=== PATIENT | female | born 1970 ===

== ENCOUNTER 2020-05-05 09:52 | Outpatient (REF) | payer MEDICARE, MEDICAID, SELFPAY ==
[2020-05-05 13:34] LABS: Alanine Aminotransferase 11 U/L (0-31); Albumin Level 4.4 g/dL (3.5-5.0); Alkaline Phosphatase 110 U/L (39-117); Anion Gap 15 (12-20); Aspartate Amino Transferase 18 U/L (5-31); Bilirubin Total 0.5 mg/dL (0.0-1.0); Blood Urea Nitrogen 16 mg/dL (9-16); Carbon Dioxide 26 mmol/L (22-29); Chloride 105 mmol/L (96-108); Estimated Glomerular Filt Rate > 60; Glucose Fasting 75 mg/dL (60-99); Potassium 4.8 mmol/l (3.3-5.1); Sodium 141 mmol/L (135-145); Total Protein 7.3 g/dL (6.5-8.0); Uric Acid 3.8 mg/dL (2.4-5.7)
== END 2020-05-05 09:53 | disposition home or self-care (01) ==
LOC: HO.LAB 09:52
PROVIDERS: Visit Provider Internal Medicine
DX: M10.9 Gout, unspecified (principal); M79.672 Pain in left foot
CPT/HCPCS: 80053; 84550

== ENCOUNTER 2020-05-11 12:58 | Outpatient (REF) | payer MEDICARE, MEDICAID, SELFPAY | END 2020-05-11 12:59 | disposition home or self-care (01) | LOC: HO.LAB 12:58 | PROVIDERS: Visit Provider Internal Medicine | DX: Z20.828 Contact with and (suspected) exposure to other viral communicable diseases (principal) | CPT/HCPCS: C9803; U0003 ==

== ENCOUNTER 2020-05-25 13:44 | Outpatient (REF) | payer MEDICARE, MEDICAID, SELFPAY ==
[2020-05-25 14:13] LABS: MANUAL DIFF FLAG NO
[2020-05-25 14:16] LABS: Basophils Absolute Auto 0.1 X10*3/uL (0.0-0.2); Basophils Percent Auto 0.7 % (0-2); Eosinophils Absolute Auto 0.2 X10*3/uL (0.0-0.4); Eosinophils Percent Auto 2.4 % (0-4); Hematocrit 40.2 % (37-47); Hemoglobin 12.8 g/dl (12.0-16.0); Imm Gran Abs Auto 0.02 X10*3/uL (0.00-0.03); Imm Gran Pct Auto 0.2 % (0.0-0.4); Lymphocytes Absolute Auto 1.7 X10*3/uL (1.2-4.9); Lymphocytes Percent Auto 19.7 % (20-40); Mean Corpuscular HGB Conc 31.8 g/dl (31.0-35.0); Mean Corpuscular Hemoglobin 29.6 pg (27.0-33.0); Mean Corpuscular Volume 93.1 fL (80-98); Mean Platelet Volume 9.5 fL (9.4-12.3); Monocytes Absolute Auto 0.6 X10*3/uL (0.1-1.2); Neutrophils Absolute Auto 6.1 X10*3/uL (2.0-8.3); Platelet Count 354 X10*3/uL (160-400); Red Blood Count 4.32 X10*6/uL (4.20-5.50); Red Cell Distribution Width 12.7 % (11.0-16.0); White Blood Count 8.7 X10*3/uL (4.8-10.8)
[2020-05-25 15:02] LABS: Thyroid Stimulating Hormone 0.61 uIU/mL (0.32-4.0)
[2020-05-25 15:15] LABS: Folate 10.6 ng/mL (> or = 4.0); Vitamin B12 284 pg/mL (200-900)
== END 2020-05-25 13:45 | disposition home or self-care (01) ==
LOC: HO.LAB 13:44
PROVIDERS: PCP Internal Medicine; Visit Provider Internal Medicine
DX: G60.9 Hereditary and idiopathic neuropathy, unspecified (principal); Z68.23 Body mass index [BMI] 23.0-23.9, adult
CPT/HCPCS: 36415; 82607; 82746; 84443; 85025

== ENCOUNTER 2020-06-01 09:42 | Outpatient (REF) | payer MEDICARE, MEDICAID, SELFPAY ==
[2020-06-01 11:46] LABS: Free T4 (Free Thyroxine) 0.79 ng/dL (0.71-1.85); Thyroid Stimulating Hormone 1.34 uIU/mL (0.32-4.0)
== END 2020-06-01 09:43 | disposition home or self-care (01) ==
LOC: HO.LAB 09:42
PROVIDERS: PCP Internal Medicine; Visit Provider Internal Medicine
DX: E06.3 Autoimmune thyroiditis (principal)
CPT/HCPCS: 84439; 84443

== ENCOUNTER 2020-06-06 09:26 | Outpatient (REF) | payer MEDICARE, MEDICAID, SELFPAY ==
--- NOTE | 2020-06-06 | US_ITS ---
EXAMINATION: US THYROID CLINICAL INFORMATION: Multinodular goiter. COMPARISON: Ultrasound thyroid soft tissue dated 12/03/2018 TECHNIQUE: Linear transducer vincent-scale and color Doppler examination with attention to the region of the thyroid. FINDINGS: SIZE: Measurements of the thyroid lobes and nodules are given in sagittal, anteroposterior and transverse dimensions respectively. Right Thyroid Lobe: 5.4 x 2.0 x 1.6 cm, volume 9.5 mL. Previously 5.0 x 1.9 x 1.7 cm, volume 8.5 mL. Parenchyma: The gland echotexture is heterogeneous. Thyroid vascularity is slightly increased. Left Thyroid Lobe: 5.4 x 1.9 x 1.9 cm, volume 10.2 mL. Previously 5.3 x 2.2 x 1.8 cm, volume 11.0 mL. Parenchyma: The gland echotexture is heterogeneous. Thyroid vascularity is slightly increased.. Isthmus: 0.7 cm in maximum AP dimension. Previously 0.7 cm. RIGHT THYROID LOBE: There are 4 nodules seen. 1. Location: Upper. Size: 0.6 x 0.4 x 0.4 cm. Previous: Not seen Nodule characteristics: Hypoechoic and heterogeneous, smooth margin, no calcification and positive intranodular flow. 2. Location: Mid. Size: 0.7 x 0.4 x 0.5 cm. Previous: 0.4 x 0.3 x 0.4 cm. Nodule characteristics: Hypoechoic and complex cystic, smooth margin, no calcification and no intranodular flow. 3. Location: Mid. Size: 0.4 x 0.2 x 0.3 cm. Previous: 0.3 x 0.2 x 0.3 cm. Nodule characteristics: Hypoechoic and cystic, smooth margin, no calcification and no intranodular flow. 4. Location: Lower. Size: 0.2 x 0.1 x 0.3 cm. Previous: 0.3 x 0.5 x 0.3 cm. Nodule characteristics: Calcification . The previously identified 1.2 x 1.1 x 1.1 cm isoechoic nodule inferior lobe is not appreciated. ISTHMUS: No nodules. LEFT THYROID LOBE: There is 1 nodule seen. 1. Location: Mid to lower. Size: 2.2 x 1.2 x 1.3 cm. Previous: 1.6 x 1.2 x 1.0 cm. Nodule characteristics: Heterogeneous and complex cystic, smooth margin, no calcification and positive intranodular flow. This appears to represent 1 nodule at this time. The 2 smaller adjacent cystic nodules are not appreciated. NODES: No lymphadenopathy is seen in the tissue surrounding the thyroid gland. US/US thyroid IMPRESSION: Enlarged heterogeneous slightly hypervascular thyroid gland. Comparison with previous exam is difficult. The previously identified approximately 1 cm solid isoechoic nodule in the superior right lobe is is not appreciated. There is a newly appreciated small nodule in the superior right lobe. Complex cystic nodule in the mid to lower left lobe appears increased in size from previous exam. The separate adjacent smaller nodules are not appreciated.
== END 2020-06-06 09:27 | disposition home or self-care (01) ==
LOC: HO.US 09:26
PROVIDERS: PCP Internal Medicine; Visit Provider Internal Medicine
DX: E04.2 Nontoxic multinodular goiter (principal)
CPT/HCPCS: 76536

== ENCOUNTER 2020-08-04 09:15 | Outpatient (REF) | payer MEDICARE, MEDICAID, SELFPAY ==
--- NOTE | 2020-08-04 10:02 | PM.OP ---
Brief Operative Note Date of Service: 08/04/20 Surgeon: Nidhi Gibson DO EXAMINATION: US THYROID CLINICAL INFORMATION: Multinodular Thyroid COMPARISON: Prior TECHNIQUE: Linear transducer vinecnt-scale and color Doppler examination with attention to the region of the thyroid. FINDINGS: SIZE: Measurements of the thyroid lobes and nodules are given in sagittal, anteroposterior and transverse dimensions respectively. Right Thyroid Lobe: 5.7 x 1.8 x 2.0 cm, volume 10.5 mL. Parenchyma: The gland echotexture is diffusely heterogenous. Thyroid vascularity is moderately increased. Left Thyroid Lobe: 6 x 2.1 x 2.0 cm, volume 12.8 mL. Parenchyma: The gland echotexture is diffusely heterogenous. Thyroid vascularity is moderately increased. Isthmus: 0.8 cm in maximum AP dimension. RIGHT THYROID LOBE: There are scattered small cystic areas, but no obvious nodules. LEFT THYROID LOBE: There are 3 nodules. 1. LMP: There is a 0.85 x 1.0 x 0.8 cm mixed cystic nodule. This has regular margins, no calcification and normal intranodular flow. 2. LMP: There is a 0.8 x 1.0 x 0.7 cm mixed cystic nodule. This has regular margins, no calcification and normal intranodular flow. 2. LMP: There is a 01.3 x 1.3 x 1.2 cm mixed cystic nodule. This has regular margins, no calcification and normal intranodular flow. NODES: Lymph nodes were not assessed. 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 There are 3 nodules measured in the L mid pole, all mixed cystic. These have not significantly changed from her prior US. On the prior US these nodules were measured together as 1 nodule measuring 2.2 cm in largest dimension, but this was in error. These are in fact 3 separate nodules. Estimated blood loss (mL): 0
== END 2020-08-04 09:16 | disposition home or self-care (01) ==
LOC: HO.US 09:15
PROVIDERS: Visit Provider Internal Medicine
DX: E04.2 Nontoxic multinodular goiter (principal)
CPT/HCPCS: 76536

== ENCOUNTER → 2020-08-18 11:25 | Outpatient (BNVA) | payer MEDICARE, MEDICAID, SELFPAY | PROVIDERS: PCP Internal Medicine; Visit Provider Internal Medicine | DX: Z76.89 Persons encountering health services in other specified circumstances (principal) | CPT/HCPCS: Q3014 ==

== ENCOUNTER → 2020-09-23 11:44 | Outpatient (BNVA) | payer MEDICARE, MEDICAID, SELFPAY | PROVIDERS: PCP Internal Medicine; Visit Provider Dietitian, Registered ==

== ENCOUNTER 2020-10-04 08:52 | Outpatient (REF) | payer MEDICARE, MEDICAID, SELFPAY ==
[2020-10-04 14:37] LABS: SARS COV2 PCR INHOUSE NEGATIVE (Negative)
== END 2020-10-04 08:53 | disposition home or self-care (01) ==
LOC: HO.LAB 08:52
PROVIDERS: Visit Provider Internal Medicine
DX: Z20.822 Contact with and (suspected) exposure to COVID-19 (principal)
CPT/HCPCS: C9803; U0003

== ENCOUNTER → 2020-12-23 11:45 | Outpatient (BNVA) | payer MEDICARE, MEDICAID, SELFPAY | PROVIDERS: PCP Internal Medicine; Visit Provider Dietitian, Registered | DX: R63.4 Abnormal weight loss (principal) | CPT/HCPCS: 97803 ==

== ENCOUNTER 2021-02-06 09:06 | Outpatient (REF) | payer MEDICARE, MEDICAID, SELFPAY ==
--- NOTE | ~2021-02-06 | XR_ITS ---
EXAMINATION: XR FOOT, RIGHT XR, FOOT LEFT CLINICAL INFORMATION: Bilateral foot pain COMPARISON: Radiographs bilateral feet 03/10/2020. TECHNIQUE: Each foot is imaged in 3 views. There are a total of 6 views. FINDINGS: Right: Normal bony mineralization. No periarticular demineralization. No fracture or destructive process. The subtalar joint is unremarkable. There are small posterior and plantar calcaneal spurs again noted. The retrocalcaneal recess is preserved. The midfoot is unremarkable. No joint narrowing or erosive change. The hallux again shows a borderline healed erosion medial base without adjacent soft tissue swelling or mineralized tophi. There is a stable cyst in the first proximal phalanx. Probable healed erosion present lateral base first distal phalanx, new from prior study. No joint narrowing. The remainder of the digits show no interval joint narrowing or erosive change. Left: Normal bony mineralization. No periarticular demineralization. No fracture or dislocation. There are borderline posterior and plantar calcaneal spurs. The retrocalcaneal recess is preserved. The subtalar joint and midfoot are unremarkable. MTP joints show no focal narrowing or erosive change. There is a borderline left lateral base first distal phalanx, stable from prior study. No interval erosive changes. The remainder of the digits are unremarkable. XR/XR foot RT min 3V IMPRESSION: Right: -Probable healed erosion lateral base first distal phalanx, new from 03/10/2020. -Question punctate healed erosion medial base first proximal phalanx. -No soft tissue swelling or mineralized tophus. -No interval joint narrowing. -Small posterior and plantar calcaneal spurs. Left: -Small posterior and plantar calcaneal spurs. -No interval joint narrowing or erosive changes.
--- NOTE | ~2021-02-06 | XR_ITS ---
EXAMINATION: XR FOOT, RIGHT XR, FOOT LEFT CLINICAL INFORMATION: Bilateral foot pain COMPARISON: Radiographs bilateral feet 03/10/2020. TECHNIQUE: Each foot is imaged in 3 views. There are a total of 6 views. FINDINGS: Right: Normal bony mineralization. No periarticular demineralization. No fracture or destructive process. The subtalar joint is unremarkable. There are small posterior and plantar calcaneal spurs again noted. The retrocalcaneal recess is preserved. The midfoot is unremarkable. No joint narrowing or erosive change. The hallux again shows a borderline healed erosion medial base without adjacent soft tissue swelling or mineralized tophi. There is a stable cyst in the first proximal phalanx. Probable healed erosion present lateral base first distal phalanx, new from prior study. No joint narrowing. The remainder of the digits show no interval joint narrowing or erosive change. Left: Normal bony mineralization. No periarticular demineralization. No fracture or dislocation. There are borderline posterior and plantar calcaneal spurs. The retrocalcaneal recess is preserved. The subtalar joint and midfoot are unremarkable. MTP joints show no focal narrowing or erosive change. There is a borderline left lateral base first distal phalanx, stable from prior study. No interval erosive changes. The remainder of the digits are unremarkable. XR/XR foot LT min 3V IMPRESSION: Right: -Probable healed erosion lateral base first distal phalanx, new from 03/10/2020. -Question punctate healed erosion medial base first proximal phalanx. -No soft tissue swelling or mineralized tophus. -No interval joint narrowing. -Small posterior and plantar calcaneal spurs. Left: -Small posterior and plantar calcaneal spurs. -No interval joint narrowing or erosive changes.
== END 2021-02-06 09:07 | disposition home or self-care (01) ==
LOC: HO.XRAY 09:06
PROVIDERS: PCP Internal Medicine; Visit Provider Internal Medicine
DX: M79.671 Pain in right foot (principal)
CPT/HCPCS: 73630

== ENCOUNTER 2021-02-10 10:52 | Outpatient (REF) | payer MEDICARE, MEDICAID, SELFPAY ==
--- NOTE | ~2021-02-10 | MM_ITS ---
EXAMINATION: MM SCREENING DIGITAL BREAST TOMOSYNTHESIS, BILATERAL CLINICAL INFORMATION: Screening. Asymptomatic. The lifetime risk of breast cancer based on the Tyrer-Cuzick Model is 6%. COMPARISON: Mammography: 02/05/2020, 01/30/2019, 12/03/2017 TECHNIQUE: Digital breast tomosynthesis is performed in both the craniocaudal and mediolateral oblique views along with computer-aided detection (CAD). Synthesized 2D images are generated from the tomosynthesis. FINDINGS: There are scattered areas of fibroglandular density (ACR BI-RADS breast composition Category b). There are no significant masses, abnormal calcifications, or other abnormalities. Parenchymal pattern is similar to prior studies. No significant changes. MM/MM tomosynthesis screening BI IMPRESSION: No mammographic evidence of malignancy. ASSESSMENT: BI-RADS 1: Negative RECOMMENDATION: Routine annual mammography screening. This patient's information was entered into a reminder system with a target due date for their next mammogram.
== END 2021-02-10 10:53 | disposition home or self-care (01) ==
LOC: HO.MAMMO 10:52
PROVIDERS: Visit Provider Internal Medicine
DX: Z12.31 Encounter for screening mammogram for malignant neoplasm of breast (principal)
CPT/HCPCS: 77063; 77067

== ENCOUNTER 2021-03-02 08:16 | Outpatient (REF) | payer MEDICARE, MEDICAID, SELFPAY ==
[2021-03-02 08:43] LABS: MANUAL DIFF FLAG NO
[2021-03-02 08:46] LABS: Basophils Absolute Auto 0.1 X10*3/uL (0.0-0.2); Basophils Percent Auto 0.7 % (0-2); Eosinophils Absolute Auto 0.1 X10*3/uL (0.0-0.4); Eosinophils Percent Auto 1.7 % (0-4); Hematocrit 43.4 % (37-47); Hemoglobin 13.8 g/dl (12.0-16.0); Imm Gran Abs Auto 0.02 X10*3/uL (0.00-0.03); Imm Gran Pct Auto 0.3 % (0.0-0.4); Lymphocytes Absolute Auto 2.1 X10*3/uL (1.2-4.9); Lymphocytes Percent Auto 27.3 % (20-40); Mean Corpuscular HGB Conc 31.8 g/dl (31.0-35.0); Mean Corpuscular Hemoglobin 29.5 pg (27.0-33.0); Mean Corpuscular Volume 92.7 fL (80-98); Mean Platelet Volume 9.9 fL (9.4-12.3); Monocytes Absolute Auto 0.5 X10*3/uL (0.1-1.2); Neutrophils Absolute Auto 4.8 X10*3/uL (2.0-8.3); Platelet Count 261 X10*3/uL (160-400); Red Blood Count 4.68 X10*6/uL (4.20-5.50); Red Cell Distribution Width 13.4 % (11.0-16.0); White Blood Count 7.5 X10*3/uL (4.8-10.8)
[2021-03-02 09:13] LABS: Alanine Aminotransferase 12 U/L (0-31); Albumin Level 4.1 g/dL (3.5-5.0); Alkaline Phosphatase 93 U/L (39-117); Anion Gap 12 (12-20); Aspartate Amino Transferase 15 U/L (5-31); Bilirubin Direct 0.2 mg/dL (0.0-0.5); Bilirubin Total 0.6 mg/dL (0.0-1.0); Blood Urea Nitrogen 14 mg/dL (9-16); Calcium 9.5 mg/dL (8.4-10.2); Carbon Dioxide 26 mmol/L (22-29); Chloride 107 mmol/L (96-108); Estimated Glomerular Filt Rate > 60; Glucose Random 83 mg/dL (60-115); Potassium 4.2 mmol/L (3.3-5.1); Sodium 141 mmol/L (135-145); Total Protein 6.8 g/dL (6.5-8.0)
[2021-03-03 08:53] LABS: Hepatitis B Core Antibody Nonreactive (Nonreactive)
[2021-03-03 09:13] LABS: HBS Num1 0.49 mIU/mL (0-7.99); ~Hepatitis B Surface Antibody NONREACTIVE (Nonreactive)
== END 2021-03-02 08:17 | disposition home or self-care (01) ==
LOC: HO.LAB 08:16
PROVIDERS: PCP Internal Medicine; Visit Provider Physician Assistant Medical
DX: L40.0 Psoriasis vulgaris (principal); R20.8 Other disturbances of skin sensation; L29.8 Other pruritus; L53.8 Other specified erythematous conditions; L98.8 Other specified disorders of the skin and subcutaneous tissue
CPT/HCPCS: 36415; 80048; 80076; 85025; 86704; 86706

== ENCOUNTER 2021-06-05 08:18 | Outpatient (REF) | payer MEDICARE, MEDICAID, SELFPAY ==
[2021-06-05 09:26] LABS: Cholesterol 228 mg/dL; HDL Cholesterol 65 mg/dL; LDL Cholesterol Calculated 148 mg/dl; Triglycerides 78 mg/dL
== END 2021-06-05 08:19 | disposition home or self-care (01) ==
LOC: HO.LAB 08:18
PROVIDERS: PCP Internal Medicine; Visit Provider Internal Medicine
DX: M79.7 Fibromyalgia (principal); L40.52 Psoriatic arthritis mutilans; J47.9 Bronchiectasis, uncomplicated; F33.41 Major depressive disorder, recurrent, in partial remission; Z86.010 Personal history of colon polyps
CPT/HCPCS: 36415; 80061

== ENCOUNTER 2021-06-26 10:35 | Outpatient (REF) | payer MEDICARE, MEDICAID, SELFPAY ==
[2021-06-26 10:51] LABS: MANUAL DIFF FLAG NO
[2021-06-26 11:11] LABS: Basophils Absolute Auto 0.1 X10*3/uL (0.0-0.2); Basophils Percent Auto 0.8 % (0-2); Eosinophils Absolute Auto 0.2 X10*3/uL (0.0-0.4); Hematocrit 42.5 % (37.0-47.0); Hemoglobin 13.7 g/dl (12.0-16.0); Imm Gran Abs Auto 0.01 X10*3/uL (0.00-0.03); Imm Gran Pct Auto 0.2 % (0.0-0.4); Lymphocytes Absolute Auto 1.7 X10*3/uL (1.2-4.9); Lymphocytes Percent Auto 25.6 % (20-40); Mean Corpuscular HGB Conc 32.2 g/dl (31.0-35.0); Mean Corpuscular Hemoglobin 29.9 pg (27.0-33.0); Mean Corpuscular Volume 92.8 fL (80.0-98.0); Mean Platelet Volume 9.6 fL (9.4-12.3); Monocytes Absolute Auto 0.5 X10*3/uL (0.1-1.2); Neutrophils Absolute Auto 4.1 x10*3/uL (2.0-8.3); Neutrophils Percent Auto 62.4 % (45-73); Platelet Count 322 X10*3/uL (160-400); Red Blood Count 4.58 X10*6/uL (4.20-5.50); White Blood Count 6.6 X10*3/uL (4.8-10.8)
[2021-06-26 11:41] LABS: Alanine Aminotransferase 16 U/L (0-31); Albumin Level 4.2 g/dL (3.5-5.0); Alkaline Phosphatase 96 U/L (39-117); Anion Gap 10 (12-20); Aspartate Amino Transferase 18 U/L (5-31); Bilirubin Direct 0.3 mg/dL (0.0-0.5); Bilirubin Total 0.5 mg/dL (0.0-1.0); Blood Urea Nitrogen 12 mg/dL (9-16); Calcium 9.7 mg/dL (8.4-10.2); Carbon Dioxide 26 mmol/L (22-29); Chloride 108 mmol/L (96-108); Cholesterol 161 mg/dL; Estimated Glomerular Filt Rate > 60; Glucose Random 88 mg/dL (60-115); HDL Cholesterol 55 mg/dL; LDL Cholesterol Calculated 92 mg/dl; Potassium 4.2 mmol/L (3.3-5.1); Sodium 140 mmol/L (135-145); Total Protein 7.1 g/dL (6.5-8.0); Triglycerides 74 mg/dL
[2021-06-26 12:01] LABS: HBsAGNum1 0.23 S/CO (0.00-0.99); Hepatitis B Surface Antigen Negative (Negative)
[2021-06-26 12:36] LABS: HBS Num1 0.25 mIU/mL (0-7.99); ~Hepatitis B Surface Antibody NONREACTIVE (Nonreactive); ~Hepatitis C Antibody Nonreactive (Nonreactive)
[2021-06-28 09:50] LABS: HBc Num1 0.08 S/CO (0.00-0.79); Hepatitis B Core Antibody Nonreactive (Nonreactive)
== END 2021-06-26 10:36 | disposition home or self-care (01) ==
LOC: HO.LAB 10:35
PROVIDERS: PCP Internal Medicine; Visit Provider Physician Assistant Medical
DX: Z11.1 Encounter for screening for respiratory tuberculosis (principal); L40.0 Psoriasis vulgaris; R20.8 Other disturbances of skin sensation; L29.8 Other pruritus; L53.8 Other specified erythematous conditions; L98.8 Other specified disorders of the skin and subcutaneous tissue; Z79.899 Other long term (current) drug therapy
CPT/HCPCS: 36415; 80048; 80061; 80076; 85025; 86481; 86704; 86705; 86706; 86803; 87340

== ENCOUNTER 2021-07-04 13:11 | Outpatient (REF) | payer MEDICARE, MEDICAID, SELFPAY ==
[2021-07-06 20:21] LABS: TS Negative Control Passed; TS Panel A 0; TS Panel B 0; TS Positive Control Passed; TSpotTB Negative (Negative)
== END 2021-07-04 13:12 | disposition home or self-care (01) ==
LOC: HO.LAB 13:11
PROVIDERS: PCP Internal Medicine; Visit Provider Physician Assistant Medical
DX: L40.0 Psoriasis vulgaris (principal); R20.8 Other disturbances of skin sensation; L29.8 Other pruritus; L53.8 Other specified erythematous conditions; L98.8 Other specified disorders of the skin and subcutaneous tissue; Z79.899 Other long term (current) drug therapy
CPT/HCPCS: 36415; 86481

== ENCOUNTER 2021-08-14 10:07 | Outpatient (REF) | payer MEDICARE, MEDICAID, SELFPAY ==
--- NOTE | ~2021-08-14 | US_ITS ---
EXAMINATION: US THYROID CLINICAL INFORMATION: Nontoxic multinodular goiter. COMPARISON: Ultrasound soft tissue head/neck thyroid dated 08/04/2020 and 06/06/2020. TECHNIQUE: Linear transducer grayscale and color Doppler examination with attention to the region of the thyroid. FINDINGS: SIZE: Measurements of the thyroid lobes and nodules are given in sagittal, anteroposterior and transverse dimensions respectively. Right Thyroid Lobe: 5.4 x 1.9 x 1.9 cm, volume 10.2 mL. Previously 5.9 x 1.8 x 2.0 cm, volume 10.5 mL. Parenchyma: The gland echotexture is heterogeneous. Thyroid vascularity is increased. Left Thyroid Lobe: 5.1 x 2.0 x 2.1 cm, volume 11.2 mL. Previously 6.0 x 2.1 x 2.0 cm, volume 12.8 mL. Parenchyma: The gland echotexture is heterogeneous. Thyroid vascularity is normal. Isthmus: 0.8 cm in maximum AP dimension. Previously 0.8 cm. Estimated total number of nodules greater than or equal to 1 cm: 2. Derrick [employer] Operator nodules are described as follows: 1. Location: Left inferior. Size: 0.8 x 0.8 x 0.6 cm, volume 0.20 mL. Previously: 1.0 x 0.7 x 0.8 cm, volume 0.29 mL. Nodule characteristics: Composition: Cystic(0). ACR TI-RADS total points: 0 Previous: n/a ACR TI-RADS category: 1 Previous: n/a Significant change in size (>/= 20% in 2 dimensions and minimal increase of 2 mm or 50% or greater increase in volume): Change in features: Change in ACR TI-RADS risk category: n/a 2. Location: Left inferior. Size: 1.1 x 1.1 x 0.7 cm, volume 0.44 mL. Previously: 1.0 x 0.8 x 0.9 cm, volume 0.38 mL. Nodule characteristics: Composition: Cystic(0). ACR TI-RADS total points: 0 Previous: n/a ACR TI-RADS category: 1 Previous: n/a Significant change in size (>/= 20% in 2 dimensions and minimal increase of 2 mm or 50% or greater increase in volume): Change in features: Change in ACR TI-RADS risk category: n/a 3. Location: Left inferior. Size: 1.3 x 1.4 x 0.9 cm, volume 0.86 mL. Previously: 1.4 x 1.2 x 1.3 cm, volume 1.14 mL. Nodule characteristics: Composition: Cystic(0). ACR TI-RADS total points: 0 Previous: n/a ACR TI-RADS category: 1 Previous: n/a Significant change in size (>/= 20% in 2 dimensions and minimal increase of 2 mm or 50% or greater increase in volume): Change in features: Change in ACR TI-RADS risk category: n/a 4. Location: Right mid. Size: 0.8 x 0.5 x 0.2 cm, volume 0.04 mL. Nodule characteristics: Composition: Cystic(0). ACR TI-RADS total points: 0 Previous: n/a ACR TI-RADS category: 1 Previous: n/a Significant change in size (>/= 20% in 2 dimensions and minimal increase of 2 mm or 50% or greater increase in volume): Change in features: Change in ACR TI-RADS risk category: n/a 5. Location: Right superior. Size: 0.5 x 0.3 x 0.2 cm, volume 0.02 mL. Nodule characteristics: Composition: Cystic(0). ACR TI-RADS total points: 0 Previous: n/a ACR TI-RADS category: 1 Previous: n/a Significant change in size (>/= 20% in 2 dimensions and minimal increase of 2 mm or 50% or greater increase in volume): Change in features: Change in ACR TI-RADS risk category: n/a NODES: No lymphadenopathy is seen in the tissue surrounding the thyroid gland. US/US thyroid IMPRESSION: Slightly enlarged heterogeneous hypervascular thyroid gland. Newly appreciated small 5 mm nodules in the right upper and midpole. Left thyroid nodules are stable. ACR TI-RADS RECOMMENDATION REFERENCE: Ultrasound-guided fine-needle aspiration, followup ultrasound, no further follow up. * TR1 (0 point) and TR 2 (2 points): No FNA or follow up * TR3 (3 points): FNA if more than or equal to 2.5 cm in maximum dimension, followup ultrasound in 1, 3 and 5 years if 1.5 to 2.4 cm in maximum dimension. * TR4 (4-6 points): FNA if more than or equal to 1.5 cm in maximum dimension, followup ultrasound in 1, 2, 3 and 5 years if 1 to 1.4 cm in maximum dimension. * TR5 (more than or equal to 7 points): FNA if more than or equal to 1 cm in maximum dimension, followup ultrasound every year for 5 years if 0.5 to 0.9 cm in maximum dimension. * TR3, TR4 or TR5 nodules that are below the size threshold for follow up receive no follow up.
== END 2021-08-14 10:08 | disposition home or self-care (01) ==
LOC: HO.US 10:07
PROVIDERS: Visit Provider Internal Medicine
DX: E04.2 Nontoxic multinodular goiter (principal)
CPT/HCPCS: 76536

== ENCOUNTER 2021-08-18 15:05 | Outpatient (REF) | payer MEDICARE, MEDICAID, SELFPAY ==
[2021-08-18 16:04] LABS: Free T4 (Free Thyroxine) 0.93 ng/dL (0.71-1.85); Thyroid Stimulating Hormone 0.62 uIU/mL (0.32-4.0)
[2021-08-18 16:09] LABS: Vitamin D 25-OH Total 19.4 ng/mL (>30)
== END 2021-08-18 15:06 | disposition home or self-care (01) ==
LOC: HO.LAB 15:05
PROVIDERS: PCP Internal Medicine; Visit Provider Internal Medicine
DX: E04.2 Nontoxic multinodular goiter (principal); E55.9 Vitamin D deficiency, unspecified
CPT/HCPCS: 36415; 82306; 84439; 84443

== ENCOUNTER → 2021-08-24 07:45 | Outpatient (BNVA) | payer MEDICARE, MEDICAID, SELFPAY | PROVIDERS: Visit Provider Internal Medicine | DX: E04.2 Nontoxic multinodular goiter (principal); E55.9 Vitamin D deficiency, unspecified; E06.3 Autoimmune thyroiditis | CPT/HCPCS: 99212 ==

== ENCOUNTER 2021-08-30 14:00 | Outpatient (RCR) | payer MEDICARE, MEDICAID, SELFPAY ==
--- NOTE | 2021-07-10 18:14 | MHC.PT.EP ---
[facility] Office [place] Office [place] Office [address] Kenna Austin [address] [phone] F: [phone] F: [phone] F: [phone] F: [phone] Physical Therapy Plan of Care Date of Evaluation: Date of Surgery: N/A Diagnosis: cervical radiculopathy Assessment: Pt is a 50yo F who was referred to PT for neck pain. She reports her neck pain is L sided and radiates from her L neck to her L low back. She presents today with current impairments in pain, decreased cervical and shoulder ROM, soft tissue restrictions, and impaired posture. She is TTP throughout L UT, levator, and cervical and upper thoracic PS. She is limited functionally by overhead ADLs, lifting, turning her head, and looking up and down. She is a good candidate for skilled PT services in order to address current impairments in order to facilite return to PLOF. Frequency and Duration: The patient will be seen 2x/week for 4 weeks Short Term Goals: Pt will be I with HEP to promote self management of symptoms Pt radiating symptoms will centralize Longterm Goals: Pt will demonstrate full ROM throughout cervical spinie Pt will perform overhead ADLs without compensation with pain < 4 / 10 Pt will demonstrate improvements in functional mobility as evidenced by statistically significant improvement in Neck Pain and Disability Index Questionnaire Treatment Plan: Modalities to reduce pain, spasms and effusion. Manual therapy to restore motion and function. Therapeutic exercise to improve strength and flexibility. Neuromuscular re-education for posture and balance. Therapeutic activities to return to functional activities of daily living. Electronically signed by: Patricia Seals, PT, DPT Please sign and return to therapist. Thank you for your referral.
--- NOTE | 2021-09-04 18:11 | MHC.PT.DC ---
[facility] [place] Office [place] Office [place] Office [address] Kenna Austin [address] [phone] F: [phone] F: [phone] F: [phone] F: [phone] Physical Therapy Discharge Report Diagnosis: cervical radiculopathy Date of Surgery: N/A Date of Evaluation: 07/10/21 Date of Discharge: 09/04/21 Treatments to Date: 10 Cancellations to Date: 6 No Shows to Date: Discharge Status: Achieved Goals Improved Function Independent with HEP Discharge Summary: Pt was seen for PT from 07/10/21-08/30/21. Her last attended PT appointment was 08/30/21. Pt made good progress since SOC. She made good progress toward her STGs and LTGs. She improved her score on Neck Pain Disability Index Questionnaire from 22/50 on initial PT evaluation to 16/50 at D/C on 08/30/21. Pt is I with HEP. Pt is being D/C from skilled PT at this time. Electronically signed by: Patricia Seals, PT, DPT Please sign and return to therapist. Thank you for your referral.
== END 2021-09-04 18:12 | disposition home or self-care (01) ==
LOC: HO.PT 14:00
PROVIDERS: PCP Internal Medicine; Visit Provider Internal Medicine
DX: M54.12 Radiculopathy, cervical region (principal)
CPT/HCPCS: 97110; 97140; 97162

== ENCOUNTER 2021-09-04 09:19 | Outpatient (REF) | payer MEDICARE, MEDICAID, SELFPAY ==
[2021-09-04 10:38] LABS: Alanine Aminotransferase 17 U/L (0-31); Albumin Level 4.1 g/dL (3.5-5.0); Alkaline Phosphatase 92 U/L (39-117); Anion Gap 11 (12-20); Aspartate Amino Transferase 20 U/L (5-31); Bilirubin Total 0.4 mg/dL (0.0-1.0); Blood Urea Nitrogen 14 mg/dL (9-16); Calcium 9.4 mg/dL (8.4-10.2); Carbon Dioxide 27 mmol/L (22-29); Chloride 107 mmol/L (96-108); Cholesterol 193 mg/dL; Estimated Glomerular Filt Rate > 60; Glucose Random 84 mg/dL (60-115); HDL Cholesterol 60 mg/dL; LDL Cholesterol Calculated 120 mg/dl; Potassium 3.7 mmol/L (3.3-5.1); Sodium 141 mmol/L (135-145); Total Protein 6.9 g/dL (6.5-8.0); Triglycerides 67 mg/dL
== END 2021-09-04 09:20 | disposition home or self-care (01) ==
LOC: HO.LAB 09:19
PROVIDERS: PCP Internal Medicine; Visit Provider Internal Medicine
DX: E78.00 Pure hypercholesterolemia, unspecified (principal); J47.9 Bronchiectasis, uncomplicated; M54.12 Radiculopathy, cervical region
CPT/HCPCS: 36415; 80053; 80061

== ENCOUNTER 2021-10-10 04:24 | Emergency (ER) | payer MEDICARE, MEDICAID, SELFPAY ==
--- NOTE | ~2021-10-10 | CT_ITS ---
EXAMINATION: CT ABDOMEN AND PELVIS WITHOUT CONTRAST CLINICAL INFORMATION: Left flank pain COMPARISON: 09/04/2019 TECHNIQUE: Multidetector volumetric imaging was performed from the superior aspect of the liver through the pubic symphysis. Sagittal and coronal reformatted images were obtained on the technologist's workstation. This CT examination was performed using dose optimization techniques as appropriate, variously including the following: *Automated exposure control *Adjustment of mA and/or kV according to patient size (this includes techniques or standardized protocols for targeted exams where dose is matched to indication/reason for exam; i.e. extremities or head) *Use of iterative reconstruction technique DLP: 430 mGy-cm FINDINGS: LUNG BASES: Stable flat pleural plaque along the left posteromedial hemithorax with associated coarse calcification. Stable pleural parenchymal scarring within the lingula with accompanying traction bronchiolectasis. LIVER, GALLBLADDER, AND BILIARY TREE: The liver is normal in size, shape, and attenuation. No focal hepatic lesion or biliary ductal dilatation is present. Gallbladder unremarkable. PANCREAS: Unremarkable. SPLEEN: Unremarkable. ADRENAL GLANDS: Unremarkable. KIDNEYS AND URETERS: There is mild left hydronephrosis and hydroureter upstream from a 2 mm calculus located at the left ureterovesical junction along the bladder aspect. There is an additional 2 mm nonobstructive calculus in the upper pole right kidney. Right ureter normal in course and caliber. BLADDER: Unremarkable. GASTROINTESTINAL TRACT: The small and large bowel are unremarkable. The appendix is unremarkable. ABDOMINAL WALL: No significant hernia is appreciated. LYMPH NODES: Normal. VASCULAR: Aorta is atherosclerotic but normal caliber. PELVIC VISCERA: Uterus and adnexa unremarkable. OSSEOUS STRUCTURES: No acute or suspicious osseous abnormalities. CT/CT abdomen pelvis wo con IMPRESSION: * There is a 2 mm calculus located at the LEFT ureterovesical junction associated mild upstream hydroureteronephrosis. * Nonobstructive 2 mm calculus, right upper kidney. * Unchanged pleural plaque along the left posteromedial hemithorax with associated coarse calcification, likely inflammatory in nature. Fleischner guidelines were followed.
[2021-10-10 04:37] VITALS: BP 152/76; PULSE 96; RESP 18; TEMP 36.1; O2SAT 96; BMI 22.8
--- NOTE | 2021-10-10 05:44 | ED.BACK ---
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 left flank pain going to abdomen starting this morning one hour ago. Dysuria, no hematuria. Patient suffers from lung disease. The pain woke her from sleep MD elicited complaint: back pain Onset (ago): hour(s) Timing: constant Severity: severe Location: left flank Radiation: abdomen Related Data Home Medications Medication Instructions Recorded Confirmed albuterol sulfate 2.5 mg INHALATION Q6H 06/09/20 08/24/21 betamethasone dipropionate 0.05 % TOPICAL 06/09/20 08/24/21 lotion desonide 0.05 % topical ointment TOPICAL 06/09/20 08/24/21 duloxetine 60 mg capsule,delayed mg PO 06/09/20 08/24/21 release fluticasone propionate 50 INTRANASAL 06/09/20 08/24/21 mcg/actuation nasal spray,suspension ketoconazole 2 % shampoo TOPICAL 06/09/20 08/24/21 montelukast 10 mg tablet 10 mg PO DAILY 06/09/20 08/24/21 albuterol sulfate 90 mcg/actuation 2 puff INHALATION Q4H PRN 08/18/20 08/24/21 aerosol inhaler apremilast 30 mg tablet 30 mg PO BID 08/18/20 08/24/21 budesonide-formoterol HFA 160 INHALATION 08/18/20 08/24/21 mcg-4.5 mcg/actuation aerosol inhaler umeclidinium 62.5 mcg/actuation 2 inh INHALATION DAILY 08/18/20 08/24/21 blister powder for inhalation zinc 50 mg tablet 50 mg PO DAILY 08/18/20 08/24/21 amitriptyline 25 mg tablet 25 mg PO tab 08/24/21 08/24/21 Previous Rx's Medication Instructions Recorded cholecalciferol (vitamin D3) 50 50 mcg PO DAILY 30 Days #30 cap 08/24/21 mcg (2,000 unit) capsule naproxen 500 mg tablet (Naprosyn) 500 mg PO BID #20 tab 10/10/21 tamsulosin 0.4 mg capsule (Flomax) 0.4 mg PO BEDTIME #30 cap 10/10/21 Allergies Allergy/AdvReac Type Severity Reaction Status Date / Time clindamycin [CLINDAMYCIN] Allergy Severe RASH Verified 08/24/21 07:58 Sulfa (Sulfonamide Allergy Mild NAUSEA & Verified 08/24/21 07:58 Antibiotics) VOMITING [SULFA (SULFONAMIDE ANTIBIOTICS)] doxycycline [DOXYCYCLINE] Allergy Unknown UNK Verified 08/24/21 07:58 linezolid [LINEZOLID] Allergy Unknown UN Verified 08/24/21 07:58 rifampin [RIFAMPIN] Allergy Unknown UNK Verified 08/24/21 07:58 Review of Systems Constitutional: Constitutional: Reports no additional constitutional complaints Eyes: Eyes: Reports no additional eye complaints ENT: Denies dizziness Cardiovascular: Cardiovascular: Reports no additional cardiovascular complaints Respiratory: Respiratory: Reports as per HPI Gastrointestinal: Gastrointestinal: Reports no additional gastrointestinal complaints Genitourinary: Genitourinary: Reports no additional female genitourinary complaints Musculoskeletal: Musculoskeletal: Reports no additional musculoskeletal complaints Integumentary/Breasts: Skin/Breast: Denies rash Neurologic: Reports system reviewed and no additional complaints, except as documented, Denies dizziness and Denies Sensory deficit (Neuro) Psychiatric: Psychiatric: Denies anxiety PMFSH Past Medical History Medical History Shade's disease Multinodular thyroid Vitamin D deficiency Surgical History History of laparoscopy Hx of hernia repair Family History Family History Father Diabetes Hypertension Mother Heart disease Hypertension Social History Social History Alcohol intake: current Alcohol intake frequency: does not drink Patient Tobacco Use Status: Never used Tobacco Advance Directives: No Physical Exam Vital Signs: Vital Signs: Last Vital Signs Temp 97.0 F 10/10/21 04:37 Pulse 96 10/10/21 04:37 Resp 18 10/10/21 04:37 BP 152/76 H 10/10/21 04:37 Pulse Ox 96 10/10/21 04:37 BMI result Body Mass Index 22.8 Const: Other: female crying in pain and vomiting Nutritional Appearance: average body habitus Orientation/consciousness: oriented to person and patient oriented x3 Limitations: no limitations HEENT: Head: Yes normal to inspection Ears: external ears normal General nose exam: Normal external nose present Mouth: Normal oral and palatal mucosa present and oropharynx normal Throat: Yes posterior oropharynx normal Eyes: General: appearance normal, both eyes and all related structures Neck: Other: supple Neck: Yes normal visual inspection Chest: Chest palpation & inspection: normal inspection of the chest Resp: Auscultation: clear to auscultation bilaterally Cardio: Jugular venous distension: no JVD Rate: regular rate Rhythm: regular rhythm Heart sounds: S1 normal heart sound present and S2 normal heart sound present GI: Inspection: Yes normal to inspection Palpation (GI): Soft to palpation, nontender and No hepatosplenomegaly present Auscultation: normal bowel sounds Back/Spine/Pelvis: Other: left CVAT Skin: General skin exam: no rashes or lesions noted Neuro: General: oriented to person and patient oriented x3 Cranial nerves: Yes CN's II-XII intact bilaterally Motor exam (neuro): 5/5 motor strength present throughout Sensory Exam: No Sensory deficit (Neuro) Extrem: General: Yes normal to inspection Psych: Appearance: grossly normal Course Reevaluation(s) Reevaluation #1: Patient with history and physical consistent with renal colic. she has a 2mm at the UVJ will dc on NSAIDs and flomax Time: 06:33 MDM - Back Pain/Injury Lab Data Result diagrams: 10/10/21 05:41 10/10/21 05:41 Labs: Lab Results 10/10/21 10/10/21 Range/Units 05:41 05:41 WBC 10.4 (4.8-10.8) X10*3/uL RBC 4.36 (4.20-5.50) X10*6/uL Hgb 12.9 (12.0-16.0) g/dl Hct 39.9 (37.0-47.0) % MCV 91.5 (80.0-98.0) fL MCH 29.6 (27.0-33.0) pg MCHC 32.3 (31.0-35.0) g/dl RDW 12.9 (11.0-16.0) % Plt Count TNP MPV 9.9 (9.4-12.3) fL Absolute Nucleated RBC 0.000 (0.0-0.012) X10*3/uL Nucleated RBC % (auto) 0.0 (0.0-0.2) /100WBC Sodium 141 (135-145) mmol/L Potassium 4.0 (3.3-5.1) mmol/L Chloride 106 (96-108) mmol/L Carbon Dioxide 22 (22-29) mmol/L Anion Gap 17 (12-20) BUN 17 H (9-16) mg/dL Creatinine 0.84 (0.5-1.4) mg/dL Estim Creat Clear Calc 79.9 Estimated GFR > 60 Random Glucose 111 (60-115) mg/dL Calcium 9.7 (8.4-10.2) mg/dL Total Bilirubin 0.6 (0.0-1.0) mg/dL AST 17 (5-31) U/L ALT 12 (0-31) U/L Alkaline Phosphatase 96 (39-117) U/L Total Protein 7.2 (6.5-8.0) g/dL Albumin 4.3 (3.5-5.0) g/dL Imaging Data CT scan - abdomen: Radiologist's impression: IMPRESSION: *? There is a 2 mm calculus located at the LEFT ureterovesical junction associated mild upstream hydroureteronephrosis. *? Nonobstructive 2 mm calculus, right upper kidney. *? Unchanged pleural plaque along the left posteromedial hemithorax with associated coarse calcification, likely inflammatory in nature. ? Fleischner guidelines were followe Discharge Plan Discharge Clinical Impression: Renal colic Patient Disposition: Home, Self-Care Instructions: Renal Colic (ED) Additional Instructions: strain all urine for kidney stones Prescriptions: New naproxen [Naprosyn] 500 mg tablet 500 mg PO BID Qty: 20 0RF tamsulosin [Flomax] 0.4 mg capsule 0.4 mg PO BEDTIME Qty: 30 0RF No Action montelukast 10 mg tablet 10 mg PO DAILY 0RF duloxetine 60 mg capsule,delayed release(DR/EC) PO 0RF ketoconazole 2 % shampoo topical 0RF betamethasone dipropionate 0.05 % lotion topical 0RF desonide 0.05 % ointment topical 0RF fluticasone propionate 50 mcg/actuation spray,suspension intranasal 0RF albuterol sulfate 2.5 mg /3 mL (0.083 %) solution for nebulization 2.5 mg inhalation Q6H 0RF apremilast 30 mg tablet 30 mg PO BID 0RF budesonide-formoterol 160-4.5 mcg/actuation HFA aerosol inhaler inhalation 0RF albuterol sulfate 90 mcg/actuation HFA aerosol inhaler 2 puff inhalation Q4H PRN (Reason: wheezing) 0RF umeclidinium 62.5 mcg/actuation blister with device 2 inh inhalation DAILY 0RF amitriptyline 25 mg tablet 25 mg PO 0RF zinc 50 mg tablet 50 mg PO DAILY 0RF cholecalciferol (vitamin D3) 50 mcg (2,000 unit) capsule 50 mcg PO DAILY 30 Days Qty: 30 11RF
[2021-10-10 05:47] LABS: Hematocrit 39.9 % (37.0-47.0); Hemoglobin 12.9 g/dl (12.0-16.0); Mean Corpuscular HGB Conc 32.3 g/dl (31.0-35.0); Mean Corpuscular Hemoglobin 29.6 pg (27.0-33.0); Mean Corpuscular Volume 91.5 fL (80.0-98.0); Mean Platelet Volume 9.9 fL (9.4-12.3); PLT CLUMP 1; Red Blood Count 4.36 X10*6/uL (4.20-5.50); Red Cell Distribution Width 12.9 % (11.0-16.0)
[2021-10-10 05:49] LABS: White Blood Count 10.4 X10*3/uL (4.8-10.8)
[2021-10-10] MEDS: Ketorolac Tromethamine 60 MG/2 ML VIAL IM (05:49)
[2021-10-10] MEDS: Ondansetron ODT 4 MG TAB.RAPDIS TRANSLINGU (05:51)
[2021-10-10 06:05] LABS: Alanine Aminotransferase 12 U/L (0-31); Albumin Level 4.3 g/dL (3.5-5.0); Alkaline Phosphatase 96 U/L (39-117); Anion Gap 17 (12-20); Aspartate Amino Transferase 17 U/L (5-31); Bilirubin Total 0.6 mg/dL (0.0-1.0); Blood Urea Nitrogen 17 mg/dL (9-16); Calcium 9.7 mg/dL (8.4-10.2); Carbon Dioxide 22 mmol/L (22-29); Chloride 106 mmol/L (96-108); Creatinine Clr Calc Pharmacy 79.9; Estimated Glomerular Filt Rate > 60; Glucose Random 111 mg/dL (60-115); Sodium 141 mmol/L (135-145); Total Protein 7.2 g/dL (6.5-8.0)
[2021-10-10] MEDS: Tamsulosin HCL 0.4 MG CAPSULE PO (06:50)
== END 2021-10-10 06:56 | disposition home or self-care (01) ==
PROVIDERS: Emergency Provider Emergency Medicine; PCP Internal Medicine
DX: N13.2 Hydronephrosis with renal and ureteral calculous obstruction (principal)
CPT/HCPCS: 36415; 74176; 80053; 85027; 96372; 99283; 99284; J1885

== ENCOUNTER → 2021-11-03 10:51 | Outpatient (BNVA) | payer MEDICARE, MEDICAID, SELFPAY | PROVIDERS: PCP Internal Medicine | DX: N20.0 Calculus of kidney (principal) | CPT/HCPCS: 99202 ==

== ENCOUNTER 2022-01-06 09:25 | Outpatient (REF) | payer MEDICARE, MEDICAID, SELFPAY ==
[2022-01-06 10:37] LABS: Free T4 (Free Thyroxine) 0.83 ng/dL (0.71-1.85); Thyroid Stimulating Hormone 0.79 uIU/mL (0.32-4.0)
== END 2022-01-06 09:26 | disposition home or self-care (01) ==
LOC: HO.LAB 09:25
PROVIDERS: Internal Medicine; PCP Internal Medicine; Visit Provider Internal Medicine
DX: E78.00 Pure hypercholesterolemia, unspecified (principal); J47.9 Bronchiectasis, uncomplicated; M54.12 Radiculopathy, cervical region; E04.2 Nontoxic multinodular goiter; E55.9 Vitamin D deficiency, unspecified
CPT/HCPCS: 36415; 82306; 84439; 84443

== ENCOUNTER 2022-02-12 15:11 | Outpatient (REF) | payer MEDICARE, MEDICAID, SELFPAY ==
--- NOTE | ~2022-02-12 | MM_ITS ---
EXAMINATION: MM SCREENING DIGITAL BREAST TOMOSYNTHESIS, BILATERAL CLINICAL INFORMATION: Screening. Asymptomatic. The lifetime risk of breast cancer based on the Tyrer-Cuzick Model is 6%. COMPARISON: Mammography: 02/10/2021, 02/05/2020, 01/30/2019 TECHNIQUE: Digital breast tomosynthesis is performed in both the craniocaudal and mediolateral oblique views along with computer-aided detection (CAD). Synthesized 2D images are generated from the tomosynthesis. FINDINGS: There are scattered areas of fibroglandular density (ACR BI-RADS breast composition Category b). There are no significant masses, abnormal calcifications, or other abnormalities. Breast tissue composition borders on predominantly fatty. Background stromal markings are normal. No developing density. The axilla and skin contours are unremarkable. MM/MM tomosynthesis screening BI IMPRESSION: No mammographic evidence of malignancy. ASSESSMENT: BI-RADS 1: Negative RECOMMENDATION: Routine annual mammography screening. This patient's information was entered into a reminder system with a target due date for their next mammogram.
== END 2022-02-12 15:12 | disposition home or self-care (01) ==
LOC: HO.MAMMO 15:11
PROVIDERS: PCP Internal Medicine; Visit Provider Internal Medicine
DX: Z12.31 Encounter for screening mammogram for malignant neoplasm of breast (principal)
CPT/HCPCS: 77063; 77067

== ENCOUNTER 2022-02-28 09:57 | Outpatient (REF) | payer MEDICARE, MEDICAID, SELFPAY ==
--- NOTE | ~2022-02-28 | XR_ITS ---
EXAMINATION: XR CHEST CLINICAL INFORMATION: Hemoptysis COMPARISON: 05/25/2017 TECHNIQUE: 2 views of the chest were obtained. FINDINGS: The lungs are well expanded. There is no focal consolidation, edema, or effusion. No pneumothorax. The cardiomediastinal silhouette is within normal limits. No acute osseous abnormality. XR/XR chest 2V IMPRESSION: Clear lungs.
[2022-02-28 10:08] LABS: MANUAL DIFF FLAG NO
[2022-02-28 10:37] LABS: Basophils Absolute Auto 0.1 X10*3/uL (0.0-0.2); Basophils Percent Auto 0.8 % (0-2); Eosinophils Absolute Auto 0.1 X10*3/uL (0.0-0.4); Eosinophils Percent Auto 1.3 % (0-4); Hematocrit 41.5 % (37.0-47.0); Hemoglobin 13.4 g/dl (12.0-16.0); Imm Gran Abs Auto 0.03 X10*3/uL (0.00-0.03); Imm Gran Pct Auto 0.3 % (0.0-0.4); Lymphocytes Absolute Auto 1.5 X10*3/uL (1.2-4.9); Lymphocytes Percent Auto 16.3 % (20-40); Mean Corpuscular HGB Conc 32.3 g/dl (31.0-35.0); Mean Corpuscular Hemoglobin 28.9 pg (27.0-33.0); Mean Corpuscular Volume 89.6 fL (80.0-98.0); Mean Platelet Volume 9.7 fL (9.4-12.3); Monocytes Absolute Auto 0.7 X10*3/uL (0.1-1.2); Monocytes Percent Auto 7.7 % (2-11); Neutrophils Absolute Auto 6.7 x10*3/uL (2.0-8.3); Neutrophils Percent Auto 73.6 % (45-73); Platelet Count 344 X10*3/uL (160-400); Red Blood Count 4.63 X10*6/uL (4.20-5.50); Red Cell Distribution Width 13.4 % (11.0-16.0); White Blood Count 9.1 X10*3/uL (4.8-10.8)
== END 2022-02-28 09:58 | disposition home or self-care (01) ==
LOC: HO.LAB 09:57
PROVIDERS: PCP Internal Medicine; Visit Provider Internal Medicine
DX: R04.2 Hemoptysis (principal)
CPT/HCPCS: 36415; 71046; 85025

== ENCOUNTER 2022-03-02 08:23 | Outpatient (REF) | payer MEDICARE, MEDICAID, SELFPAY ==
--- NOTE | ~2022-03-02 | MM_ITS ---
EXAMINATION: BONE DENSITOMETRY CLINICAL INDICATION: Long-term, current, use of systemic steroids. COMPARISON: None (current study represents initial baseline exam). TECHNIQUE: Using a [employer] DXA System (software version: 13.1) manufactured by [employer], dual-energy x-ray absorptiometry was performed of the lumbar spine and left hip. The images are of good technical quality. Summary results are attached. FINDINGS: AP SPINE L1-L4: BMD 0.997 g/cm2, Z-score -0.7, T-score -1.5, osteopenia. LEFT FEMUR, NECK: BMD 0.872 g/cm2, Z-score -0.2, T-score -1.2, osteopenia. LEFT FEMUR, TOTAL: BMD 0.903 g/cm2, Z-score -0.1, T-score -0.8, normal. IDENTIFIED RISK FACTORS: Secondary osteoporosis, menopause, low body weight, glucocorticoids (chronic). HISTORY OF FRACTURE: None listed. MEDICATIONS: None listed. MM/XR DEXA axial skeleton IMPRESSION: 1. DIAGNOSIS: Osteopenia based on the lowest T-score value of -1.5 in the lumbar spine applying World Health Organization criteria. 2. 10-YEAR FRACTURE RISK PREDICTION, FRAX: Major osteoporotic fracture (clinical spine, forearm, hip or shoulder) 4.0%. Hip fracture 0.3%. 3. Treatment Recommendations: NOF guidelines recommend consideration for treatment in postmenopausal women and men age 50 and older presenting with the following: -A hip or vertebral (clinical or morphometric) fracture. -T-score less than or equal to -2.5 at the femoral neck or spine after appropriate evaluation to exclude secondary causes. -Low bone mass at the hip or spine and a 10-year fracture probability by FRAX of greater than or equal to 3% for hip fracture or greater than or equal to 20% for major osteoporotic fracture based on the [place] adapted WHO algorithm. 4. Other Recommendations: All treatment decisions require clinical judgment and consideration of individual patient factors, including patient preferences, comorbidities, previous drug use, risk factors not captured in the FRAX model (e.g. frailty, falls, vitamin D deficiency, increased bone turnover, interval significant decline in bone density) and possible under or overestimation of fracture risk by FRAX. Additional medical evaluation for secondary cause of low bone mineral density may be appropriate. FUTURE SCAN RECOMMENDATION: People with diagnosed cases of osteoporosis or at high risk for fracture should have regular bone mineral density tests. For patients eligible for Medicare, routine testing is allowed once every 2 years. The testing frequency can be increased to one year for patients who have rapidly progressing disease, those who are receiving or discontinuing medical therapy to restore bone mass, or have additional risk factors.
== END 2022-03-02 08:24 | disposition home or self-care (01) ==
LOC: HO.MAMMO 08:23
PROVIDERS: PCP Internal Medicine; Visit Provider Internal Medicine
DX: Z13.820 Encounter for screening for osteoporosis (principal); Z78.0 Asymptomatic menopausal state; Z79.52 Long term (current) use of systemic steroids
CPT/HCPCS: 77080

== ENCOUNTER 2022-04-16 10:15 | Outpatient (REF) | payer MEDICARE, MEDICAID, SELFPAY ==
--- NOTE | ~2022-04-16 | US_ITS ---
EXAMINATION: US RETROPERITONEAL LIMITED (RENAL ONLY) CLINICAL INFORMATION: Calculus of kidney. COMPARISON: CT abdomen and pelvis without contrast 10/10/2021. TECHNIQUE: Real-time imaging of the kidneys. FINDINGS: RIGHT KIDNEY: 10.7 x 6.0 x 4.3 cm (SAG x AP x TRV). The kidney is normal in size, contour, and echogenicity. Renal cortical thickness is normal. No focal parenchymal lesions or hydronephrosis. There are multiple echogenic stones with largest stone midpole measuring 0.3 x 0.2 x 0 0.3 mL. LEFT KIDNEY: 9.9 x 5.3 x 4.9 cm (SAG x AP x TRV). The kidney is normal in size, contour, and echogenicity. Renal cortical thickness is normal. No calculi or focal parenchymal lesions. No hydronephrosis. US/US renal BI IMPRESSION: 1. Nonobstructive echogenic stone midpole right kidney measuring 0.3 cm. 2. There is no caliectasis or hydronephrosis. 3. The left kidney is unremarkable.
== END 2022-04-16 10:16 | disposition home or self-care (01) ==
LOC: HO.US 10:15
DX: N20.0 Calculus of kidney (principal)
CPT/HCPCS: 76775

== ENCOUNTER 2022-07-09 11:05 | Outpatient (REF) | payer MEDICARE, MEDICAID, SELFPAY ==
[2022-07-09 13:28] LABS: MANUAL DIFF FLAG NO
[2022-07-09 13:33] LABS: Basophils Absolute Auto 0.1 X10*3/uL (0.0-0.2); Basophils Percent Auto 0.7 % (0-2); Eosinophils Absolute Auto 0.2 X10*3/uL (0.0-0.4); Hematocrit 39.8 % (37.0-47.0); Hemoglobin 12.7 g/dl (12.0-16.0); Imm Gran Abs Auto 0.02 X10*3/uL (0.00-0.03); Imm Gran Pct Auto 0.2 % (0.0-0.4); Lymphocytes Absolute Auto 1.9 X10*3/uL (1.2-4.9); Lymphocytes Percent Auto 22.7 % (20-40); Mean Corpuscular HGB Conc 31.9 g/dl (31.0-35.0); Mean Corpuscular Hemoglobin 28.8 pg (27.0-33.0); Mean Corpuscular Volume 90.2 fL (80.0-98.0); Mean Platelet Volume 9.5 fL (9.4-12.3); Monocytes Absolute Auto 0.6 X10*3/uL (0.1-1.2); Monocytes Percent Auto 7.6 % (2-11); Neutrophils Absolute Auto 5.6 x10*3/uL (2.0-8.3); Neutrophils Percent Auto 66.8 % (45-73); Platelet Count 401 X10*3/uL (160-400); Red Blood Count 4.41 X10*6/uL (4.20-5.50); Red Cell Distribution Width 13.2 % (11.0-16.0); White Blood Count 8.4 X10*3/uL (4.8-10.8)
== END 2022-07-09 11:06 | disposition home or self-care (01) ==
LOC: HO.10HDL 11:05
PROVIDERS: Visit Provider Internal Medicine
DX: J47.9 Bronchiectasis, uncomplicated (principal); R04.2 Hemoptysis
CPT/HCPCS: 36415; 85025

== ENCOUNTER 2022-07-12 15:39 | Outpatient (REF) | payer MEDICARE, MEDICAID, SELFPAY ==
--- NOTE | ~2022-07-12 | US_ITS ---
EXAMINATION: US THYROID CLINICAL INFORMATION: Nontoxic multinodular goiter. COMPARISON: Ultrasound thyroid 08/14/2021 and 06/06/2020. US-guided thyroid biopsy 01/12/2016. TECHNIQUE: Linear transducer grayscale and color Doppler examination with attention to the region of the thyroid. FINDINGS: SIZE: Measurements of the thyroid lobes and nodules are given in sagittal, anteroposterior and transverse dimensions respectively. Right Thyroid Lobe: 5.1 x 1.8 x 1.9 cm, volume 9.2 mL. Previously 5.4 x 1.9 x 1.9 cm, volume 10.2 mL. Parenchyma: The gland echotexture is heterogeneous. Thyroid vascularity is increased. Left Thyroid Lobe: 5.1 x 2.0 x 2.2 cm, volume 11.4 mL. Previously 5.1 x 2.0 x 2.1 cm, volume 11.2 mL. Parenchyma: The gland echotexture is heterogeneous. Thyroid vascularity is increased. Isthmus: 0.8 cm in maximum AP dimension. Previously 0.8 cm. Estimated total number of nodules greater than or equal to 1 cm: 2. Project Designer nodules are described as follows: 1. Location: Left inferior. Size: 0.9 x 0.5 x 0.8 cm, volume 0.2 mL. Previously: 0.8 x 0.8 x 0.6 cm, volume 0.2 mL. Nodule characteristics: Composition: Solid/almost completely solid (2). Echogenicity: Very hypoechoic (3). Shape: Not taller than wide (0). Margins: Smooth (0). Echogenic Foci: None (0). ACR TI-RADS total points: 5. Previous: 0. ACR TI-RADS category: 4. Previous: 1. Significant change in size (>/= 20% in 2 dimensions and minimal increase of 2 mm or 50% or greater increase in volume): None. Change in features: None. Change in ACR TI-RADS risk category: None. 2. Location: Left mid/inferior. Size: 1.1 x 1.0 x 1.2 cm, volume 0.7 mL. Previously: 1.1 x 1.1 x 0.7 cm, volume 0.4 mL. Nodule characteristics: Composition: Mixed cystic and solid (1). Echogenicity: Cannot be determined (1). Shape: Not taller than wide (0). Margins: Smooth (0). Echogenic Foci: None (0). ACR TI-RADS total points: 2. Previous: 0. ACR TI-RADS category: 2. Previous: 1. Significant change in size (>/= 20% in 2 dimensions and minimal increase of 2 mm or 50% or greater increase in volume): None. Change in features: None. Change in ACR TI-RADS risk category: None. 3. Location: Left inferior. Size: 1.3 x 1.2 x 1.4 cm, volume 1.1 mL. Previously: 1.3 x 1.4 x 0.9 cm, volume 0.9 mL. Nodule characteristics: Composition: Mixed cystic and solid (1). Echogenicity: Cannot be determined (1). Shape: Not taller than wide (0). Margins: Smooth (0). Echogenic Foci: None (0). ACR TI-RADS total points: 2 Previous: 0 ACR TI-RADS category: 2 Previous: 1 Significant change in size (>/= 20% in 2 dimensions and minimal increase of 2 mm or 50% or greater increase in volume): None. Change in features: None. Change in ACR TI-RADS risk category: Not applicable. 4. Location: Right inferior/mid. Size: 0.8 x 0.4 x 0.8 cm, volume 0.1 mL. Previously: 0.6 x 0.5 x 0.2 cm, volume 0.04 mL. Nodule characteristics: Composition: Mixed cystic and solid (1). Echogenicity: Cannot be determined (1). Shape: Not taller than wide (0). Margins: Smooth (0). Echogenic Foci: None (0). ACR TI-RADS total points: 2. Previous: 0. ACR TI-RADS category: 2. Previous: 1. Significant change in size (>/= 20% in 2 dimensions and minimal increase of 2 mm or 50% or greater increase in volume): None. Change in features: None. Change in ACR TI-RADS risk category: Not applicable. 5. Location: Right superior. Size: 0.6 x 0.4 x 0.5 cm, volume 0.1 mL. Previously: 0.5 x 0.3 x 0.2 cm, volume 0.02 mL. Nodule characteristics: Composition: Solid/almost completely solid (2). Echogenicity: Isoechoic (1). Shape: Not taller than wide (0). Margins: Smooth (0). Echogenic Foci: None (0). ACR TI-RADS total points: 3 Previous: 0 ACR TI-RADS category: 3 Previous: 1 Significant change in size (>/= 20% in 2 dimensions and minimal increase of 2 mm or 50% or greater increase in volume): None. Change in features: None. Change in ACR TI-RADS risk category: Not applicable. NODES: No lymphadenopathy is seen in the tissue surrounding the thyroid gland. US/US thyroid IMPRESSION: Slightly enlarged thyroid gland heterogeneous and increased vascularity with multiple nodules suggesting multinodular goiter. None of these nodules are highly suspicious at this time. ACR TI-RADS RECOMMENDATION REFERENCE: Ultrasound-guided fine-needle aspiration, followup ultrasound, no further follow up. * TR1 (0 point) and TR 2 (2 points): No FNA or follow up. * TR3 (3 points): FNA if more than or equal to 2.5 cm in maximum dimension, followup ultrasound in 1, 3 and 5 years if 1.5 to 2.4 cm in maximum dimension. * TR4 (4-6 points): FNA if more than or equal to 1.5 cm in maximum dimension, followup ultrasound in 1, 2, 3 and 5 years if 1 to 1.4 cm in maximum dimension. * TR5 (more than or equal to 7 points): FNA if more than or equal to 1 cm in maximum dimension, followup ultrasound every year for 5 years if 0.5 to 0.9 cm in maximum dimension. * TR3, TR4 or TR5 nodules that are below the size threshold for followup receive no follow up.
== END 2022-07-12 15:40 | disposition home or self-care (01) ==
LOC: HO.US 15:39
PROVIDERS: PCP Internal Medicine; Visit Provider Internal Medicine
DX: E04.2 Nontoxic multinodular goiter (principal)
CPT/HCPCS: 76536

== ENCOUNTER → 2022-08-27 09:51 | Outpatient (BNVA) | payer MEDICARE, MEDICAID, SELFPAY | PROVIDERS: PCP Internal Medicine; Visit Provider Internal Medicine | DX: Z13.89 Encounter for screening for other disorder (principal) | CPT/HCPCS: 99212 ==

== ENCOUNTER 2022-08-27 10:17 | Emergency (ER) | payer MEDICARE, MEDICAID, SELFPAY ==
--- NOTE | ~2022-08-27 | XR_ITS ---
EXAMINATION: XR CHEST CLINICAL INFORMATION: Burning sensation in chest for one week. COMPARISON: Chest radiographs 02/28/2022, 05/25/2017, CT chest 05/25/2017 TECHNIQUE: Upright portable AP x2 views of the chest was obtained. FINDINGS: No pneumothorax, pneumomediastinum, or subcutaneous emphysema. No free air beneath the diaphragms. Heart size normal. There is no lobar or segmental airspace consolidation or groundglass opacity. The costophrenic sulci are clear. No effusion. The hilar and mediastinal contours and visualized bony structures are unremarkable. XR/XR chest 1V IMPRESSION: Unremarkable examination.
[2022-08-27 10:21] VITALS: BP 137/84; PULSE 74; RESP 16; TEMP 36.6; O2SAT 99; BMI 19.0
--- NOTE | 2022-08-27 10:21 | ECG_ITS ---
Test Reason : chest pain Blood Pressure : / mmHG Vent. Rate : 071 BPM Atrial Rate : 071 BPM P-R Int : 146 ms QRS Dur : 076 ms QT Int : 400 ms P-R-T Axes : 083 035 045 degrees QTc Int : 434 ms Normal sinus rhythm Possible Left atrial enlargement Minimal voltage criteria for LVH, may be normal variant ( Sokolow-Espinoza ) Septal infarct (cited on or before 25-MAY-2017) Abnormal ECG When compared with ECG of 30-APR-2019 02:09, No significant change was found Referred By: Generic ED Physician Electronically Signed By:BROOKS FERRELL MD
[2022-08-27 10:53] LABS: MANUAL DIFF FLAG NO
[2022-08-27 10:56] LABS: Basophils Percent Auto 0.4 % (0-2); Eosinophils Absolute Auto 0.1 X10*3/uL (0.0-0.4); Eosinophils Percent Auto 1.6 % (0-4); Hematocrit 42.3 % (37.0-47.0); Hemoglobin 13.5 g/dl (12.0-16.0); Imm Gran Abs Auto 0.04 X10*3/uL (0.00-0.03); Imm Gran Pct Auto 0.4 % (0.0-0.4); Lymphocytes Percent Auto 22.4 % (20-40); Mean Corpuscular HGB Conc 31.9 g/dl (31.0-35.0); Mean Corpuscular Hemoglobin 29.1 pg (27.0-33.0); Mean Corpuscular Volume 91.2 fL (80.0-98.0); Mean Platelet Volume 8.9 fL (9.4-12.3); Monocytes Absolute Auto 0.6 X10*3/uL (0.1-1.2); Monocytes Percent Auto 7.1 % (2-11); Neutrophils Absolute Auto 6.1 x10*3/uL (2.0-8.3); Neutrophils Percent Auto 68.1 % (45-73); Platelet Count 354 X10*3/uL (160-400); Red Blood Count 4.64 X10*6/uL (4.20-5.50); Red Cell Distribution Width 14.6 % (11.0-16.0); White Blood Count 8.9 X10*3/uL (4.8-10.8)
[2022-08-27 11:08] VITALS: PULSE 72
[2022-08-27 11:09] LABS: Anion Gap 9 (12-20); Blood Urea Nitrogen 12 mg/dL (9-16); Calcium 9.3 mg/dL (8.4-10.2); Carbon Dioxide 28 mmol/L (22-29); Chloride 109 mmol/L (96-108); Estimated Glomerular Filt Rate > 60; Glucose Random 87 mg/dL (60-115); Potassium 4.3 mmol/L (3.3-5.1); Sodium 142 mmol/L (135-145)
[2022-08-27 11:18] LABS: Troponin-I High Sensitivity < 3.5 ng/L (<3.5-17.0)
[2022-08-27 11:22] VITALS: BP 152/83; PULSE 70; RESP 14; O2SAT 98
--- NOTE | 2022-08-27 13:29 | ED_ITS ---
HPI - Chest Pain General Chief Complaint: Chest Pain Stated Complaint: chest pain Time Seen by Provider: 08/27/22 12:54 Source: patient Mode of arrival: ambulatory Limitations: no limitations History of Present Illness HPI narrative: 51-year-old female previously healthy presents with palpitations. The palpitations started 3 days ago. They have been intermittent. There has been no clear relieving or exacerbating features. Is been associated with a slight burning sensation in her chest. Is not associated with shortness of breath. The pain does not radiate. Symptoms described as moderate in nature. There has been no lower extremity edema, risk factors for PE or DVT. She denies any lower extremity swelling, recent travel, surgeries or immobilization. Patient has never experienced this previously. She has no history of cardiac related issues. Related Data Home Medications Medication Instructions Recorded Confirmed albuterol sulfate 2.5 mg/3 mL 2.5 mg inhalation Q6H 06/09/20 08/27/22 (0.083 %) solution for nebulization betamethasone dipropionate 0.05 % topical 06/09/20 08/27/22 lotion desonide 0.05 % topical ointment topical 06/09/20 08/27/22 duloxetine 60 mg capsule,delayed mg PO 06/09/20 08/27/22 release fluticasone propionate 50 intranasal 06/09/20 08/27/22 mcg/actuation nasal spray,suspension ketoconazole 2 % shampoo topical 06/09/20 08/27/22 montelukast 10 mg tablet 10 mg PO DAILY 06/09/20 08/27/22 albuterol sulfate 90 mcg/actuation 2 puff inhalation Q4H PRN wheezing 08/18/20 08/27/22 aerosol inhaler apremilast 30 mg tablet 30 mg PO BID 08/18/20 08/27/22 budesonide-formoterol HFA 160 inhalation 08/18/20 08/27/22 mcg-4.5 mcg/actuation aerosol inhaler umeclidinium 62.5 mcg/actuation 2 inh inhalation DAILY 08/18/20 08/27/22 blister powder for inhalation zinc 50 mg tablet 50 mg PO DAILY 08/18/20 08/27/22 amitriptyline 25 mg tablet 25 mg PO 08/24/21 08/27/22 Previous Rx's Medication Instructions Recorded cholecalciferol (vitamin D3) 50 50 mcg PO DAILY 30 days #30 caps 08/24/21 mcg (2,000 unit) capsule naproxen 500 mg tablet (Naprosyn) 500 mg PO BID #20 tabs 10/10/21 tamsulosin 0.4 mg capsule (Flomax) 0.4 mg PO BEDTIME #30 caps 10/10/21 prednisone 20 mg tablet 20 mg PO DAILY 5 days #5 tabs 10/11/21 Allergies Allergy/AdvReac Type Severity Reaction Status Date / Time clindamycin [CLINDAMYCIN] Allergy Severe RASH Verified 08/27/22 10:14 Sulfa (Sulfonamide Allergy Mild NAUSEA & Verified 08/27/22 10:14 Antibiotics) VOMITING [SULFA (SULFONAMIDE ANTIBIOTICS)] doxycycline [DOXYCYCLINE] Allergy Unknown UNK Verified 08/27/22 10:14 linezolid [LINEZOLID] Allergy Unknown UN Verified 08/27/22 10:14 rifampin [RIFAMPIN] Allergy Unknown UNK Verified 08/27/22 10:14 Review of Systems Review of Systems: CONSTITUTIONAL: Denies weight loss, fever and chills. HEENT: Denies changes in vision and hearing. RESPIRATORY: Denies SOB and cough. CV: Positive palpitations CP. GI: Denies abdominal pain, nausea, vomiting and diarrhea. : Denies dysuria and urinary frequency. MSK: Denies myalgia and joint pain. SKIN: Denies rash and pruritus. NEUROLOGICAL: Denies headache and syncope. PSYCHIATRIC: Denies recent changes in mood. Denies anxiety and depression. All other ROS are negative unless in HPI PMFSH Past Medical History Medical History Chest pain Shade's disease Multinodular thyroid Renal calculi Vitamin D deficiency Surgical History History of laparoscopy Hx of hernia repair Family History Family History Father Diabetes Hypertension Mother Heart disease Hypertension Social History Social History Alcohol intake: never Patient Tobacco Use Status: Never used Tobacco Smoked in Last 30 Days: No Use of substances other than those prescribed or required for medical reasons: No Advance Directives: No Advance Directives Information Provided: Yes Patient : No Physical Exam Vital Signs: Vital Signs: Last Vital Signs Temp 98.0 F 08/27/22 13:30 Pulse 65 08/27/22 13:30 Resp 13 08/27/22 13:30 BP 120/70 08/27/22 13:30 Pulse Ox 97 08/27/22 13:30 O2 Del Method 08/27/22 13:30 BMI result Body Mass Index 19.0 GEN: Well developed, no acute distress, alert, oriented HEENT: Normocephalic, atraumatic, normal external ears, nose appears normal, no oropharyngeal edema or exudates Eyes: Normal to appearance Neck: Supple, no lymphadenopathy Respiratory: Talks in complete sentences, no respiratory distress, clear to auscultation bilaterally Cardiovascular: Regular rate and rhythm, no murmurs rubs or gallops Abdomen: Soft, nontender, nondistended, no guarding, no rebound Back: No CVA tenderness Extremities: No clubbing cyanosis or edema Neurologic: No focal neurologic deficits, cranial nerves 2-12 intact, strength is 5/5 bilaterally, gait normal Skin: No rash Course Course Course Narrative: 51-year-old female with no significant previous medical problems presents with 3 days of palpitations and burning chest discomfort. On examination, patient is regular rate rhythm. She has no murmurs rubs or gallops. She has no evidence of PE or DVT. Her PERC score is 0. She denies any heat or cold intolerance, loss of weight. She has no thyroid related symptoms. Her primary care provider did send her here thinking she may have thyroid related issues. Her initial EKG was nonischemic without any evidence of cardiac dysrhythmia or alteration of intervals. Assuming her lab work is negative, patient will likely be discharged with cardiology follow-up for an event monitor or Holter monitor. This was discussed with the patient. Reevaluation(s) Reevaluation #1: Lab work reviewed at this time, thyroid lab testing has been added on and will review prior to discharge. Time: 13:47 Reevaluation #2: Her lab work is complete. There is no evidence of thyroid dysfunction. Discussed all labs. Discussed all discharge instructions. Patient is aware she will be referred to Cardiology. All questions were addressed and answered. Time: 14:56 Medical Decision Making Medical Decision Making MDM Narrative: 51-year-old female with no significant previous medical problems presents with 3 days of palpitations and burning chest discomfort. On examination, patient is regular rate rhythm. She has no murmurs rubs or gallops. She has no evidence of PE or DVT. Her PERC score is 0. She denies any heat or cold intolerance, loss of weight. She has no thyroid related symptoms. Her primary care provider did send her here thinking she may have thyroid related issues. Her initial EKG was nonischemic without any evidence of cardiac dysrhythmia or alteration of intervals. Assuming her lab work is negative, patient will likely be discharged with cardiology follow-up for an event monitor or Holter monitor. This was discussed with the patient. Differential Diagnosis Differential Diagnoses: The differential diagnosis associated with the presentation includes (Palpitations, cardiac dysrhythmia, atrial fibrillation, atrial flutter, electrolyte abnormality, anemia) Admission/Observation Consideration of admission/observation: Escalation of care including admission/observation considered Lab Data MDM Lab Attestation statement: I reviewed the patient's lab results. 08/27/22 10:50 08/27/22 10:50 Labs: Lab Results 08/27/22 08/27/22 08/27/22 Range/Units 10:50 10:50 10:50 WBC 8.9 (4.8-10.8) X10*3/uL RBC 4.64 (4.20-5.50) X10*6/uL Hgb 13.5 (12.0-16.0) g/dl Hct 42.3 (37.0-47.0) % MCV 91.2 (80.0-98.0) fL MCH 29.1 (27.0-33.0) pg MCHC 31.9 (31.0-35.0) g/dl RDW 14.6 (11.0-16.0) % Plt Count 354 (160-400) X10*3/uL MPV 8.9 L (9.4-12.3) fL Immature Gran % (Auto) 0.4 (0.0-0.4) % Neut % (Auto) 68.1 (45-73) % Lymph % (Auto) 22.4 (20-40) % [place] % (Auto) 7.1 (2-11) % Eos % (Auto) 1.6 (0-4) % Baso % (Auto) 0.4 (0-2) % Lymph # (Auto) 2.0 (1.2-4.9) X10*3/uL [place] # (Auto) 0.6 (0.1-1.2) X10*3/uL Eos # (Auto) 0.1 (0.0-0.4) X10*3/uL Baso # (Auto) 0.0 (0.0-0.2) X10*3/uL Abs Immat Gran (auto) 0.04 H (0.00-0.03) X10*3/uL Absolute Neuts (auto) 6.1 (2.0-8.3) x10*3/uL Absolute Nucleated RBC 0.000 (0.0-0.012) X10*3/uL Nucleated RBC % (auto) 0.0 (0.0-0.2) /100WBC Sodium 142 (135-145) mmol/L Potassium 4.3 (3.3-5.1) mmol/L Chloride 109 H (96-108) mmol/L Carbon Dioxide 28 (22-29) mmol/L Anion Gap 9 L (12-20) BUN 12 (9-16) mg/dL Creatinine 0.71 (0.5-1.4) mg/dL Estim Creat Clear Calc 83.0 Estimated GFR > 60 Random Glucose 87 (60-115) mg/dL Calcium 9.3 (8.4-10.2) mg/dL Troponin I High Sens < 3.5 (<3.5-17.0) ng/L TSH 0.83 (0.32-4.0) uIU/mL Independent Interpretation I performed an independent interpretation of an: EKG (Normal sinus rhythm heart rate 71, normal axis, normal intervals, alteration of precordial progression suggestive of lead placement, possible LVH based on sulcal of criteria, no acute ST elevations or depressions) and Plain X-Ray (Chest x-ray, no acute cardiopulmonary disease) Radiology Impression Discussion of test interpretation with radiology: I have reviewed the radiologist's reading. (IMPRESSION: Unremarkable examination. Dictated By:Liu Samuel MDSigned By:<Electronically signed by Liu Samuel MD in [place]>08/27/22 [id number]) External Record Review External record reviewed: Office record (Endocrinology note from today shows a history of Shade's disease, nontoxic multinodular goiter.) Tests considered The following testing was considered but not selected: Holter monitor Prescription Management I considered prescription management with: Other (Beta-blockers) Chronic Conditions Patient?s care impacted by: Other (Thyroid disorder) Discharge Plan Discharge Clinical Impression: Palpitations, Shade's disease, Multinodular thyroid Patient Disposition: Home, Self-Care Instructions: Heart Palpitations (DC), Thyroid Nodules (ED) Prescriptions: No Action prednisone 20 mg tablet 20 mg PO DAILY 5 Days Qty: 5 0RF naproxen [Naprosyn] 500 mg tablet 500 mg PO BID Qty: 20 0RF tamsulosin [Flomax] 0.4 mg capsule 0.4 mg PO BEDTIME Qty: 30 0RF montelukast 10 mg tablet 10 mg PO DAILY duloxetine 60 mg capsule,delayed release(DR/EC) PO ketoconazole 2 % shampoo topical betamethasone dipropionate 0.05 % lotion topical desonide 0.05 % ointment topical fluticasone propionate 50 mcg/actuation spray,suspension intranasal albuterol sulfate 2.5 mg /3 mL (0.083 %) solution for nebulization 2.5 mg inhalation Q6H apremilast 30 mg tablet 30 mg PO BID budesonide-formoterol 160-4.5 mcg/actuation HFA aerosol inhaler inhalation albuterol sulfate 90 mcg/actuation HFA aerosol inhaler 2 puff inhalation Q4H PRN (Reason: wheezing) umeclidinium 62.5 mcg/actuation blister with device 2 inh inhalation DAILY amitriptyline 25 mg tablet 25 mg PO zinc 50 mg tablet 50 mg PO DAILY cholecalciferol (vitamin D3) 50 mcg (2,000 unit) capsule 50 mcg PO DAILY 30 Days Qty: 30 11RF Referrals: Josh Murray MD [Physician] - 5 days Print Language: [place]
[2022-08-27 13:30] VITALS: BP 120/70; PULSE 65; RESP 13; TEMP 36.7; O2SAT 97
[2022-08-27 14:29] LABS: TSH reflex Free T4 0.83 uIU/mL (0.32-4.0)
== END 2022-08-27 15:11 | disposition home or self-care (01) ==
PROVIDERS: Emergency Provider Emergency Medicine; PCP Internal Medicine
DX: R00.2 Palpitations (principal); E06.3 Autoimmune thyroiditis; E04.2 Nontoxic multinodular goiter; Z79.899 Other long term (current) drug therapy
CPT/HCPCS: 36415; 71045; 80048; 84443; 84484; 85025; 93005; 99212; 99283; 99285

== ENCOUNTER 2022-09-21 23:14 | Emergency (ER) | payer MEDICARE, MEDICAID, SELFPAY ==
[2022-09-21 23:29] VITALS: PULSE 84; RESP 18; TEMP 36.8; O2SAT 97; BMI 19.4
[2022-09-21 23:33] VITALS: BP 162/89
[2022-09-22 00:13] LABS: Basophils Absolute Auto 0.1 X10*3/uL (0.0-0.2); Basophils Percent Auto 0.4 % (0-2); Eosinophils Percent Auto 0.3 % (0-4); Hematocrit 40.2 % (37.0-47.0); Imm Gran Abs Auto 0.06 X10*3/uL (0.00-0.03); Imm Gran Pct Auto 0.4 % (0.0-0.4); Lymphocytes Absolute Auto 0.8 X10*3/uL (1.2-4.9); Lymphocytes Percent Auto 4.7 % (20-40); MANUAL DIFF FLAG SCAN; Mean Corpuscular HGB Conc 32.3 g/dl (31.0-35.0); Mean Corpuscular Hemoglobin 29.1 pg (27.0-33.0); Mean Corpuscular Volume 90.1 fL (80.0-98.0); Monocytes Absolute Auto 0.2 X10*3/uL (0.1-1.2); Monocytes Percent Auto 1.1 % (2-11); Neutrophils Absolute Auto 14.8 x10*3/uL (2.0-8.3); Neutrophils Percent Auto 93.1 % (45-73); Platelet Count 366 X10*3/uL (160-400); Red Blood Count 4.46 X10*6/uL (4.20-5.50); Red Cell Distribution Width 13.9 % (11.0-16.0); SCAN SMEAR FLAG 1; White Blood Count 15.9 X10*3/uL (4.8-10.8)
--- NOTE | 2022-09-22 00:13 | MHC.EDTECH ---
pt blood drawn and urine sample collected and sent to lab .
[2022-09-22 00:25] LABS: Appearance Urine Cloudy; Color Urine Yellow; Glucose Urine UA Negative (Negative); Leukocyte Esterase Urine Negative (Negative); Nitrite Urine Negative (Negative); Urine Blood Negative (Negative); Urine Ketones Negative (Negative); Urine Protein Negative (Neg-Trace)
[2022-09-22 00:31] LABS: COVID-19 Test Negative (Negative); IDNOW Serial# 08D9AD1C
[2022-09-22 00:32] LABS: IDNOW Serial# BCCEAD1C; Influenza A Negative (Negative); Influenza B2 Negative (Negative)
[2022-09-22 00:33] LABS: SLIDE REVIEW VERIFIED
[2022-09-22 00:34] LABS: Alanine Aminotransferase 10 U/L (0-31); Albumin Level 3.9 g/dL (3.5-5.0); Alkaline Phosphatase 104 U/L (39-117); Anion Gap 13 (12-20); Aspartate Amino Transferase 16 U/L (5-31); Bilirubin Direct 0.2 mg/dL (0.0-0.5); Bilirubin Total 0.5 mg/dL (0.0-1.0); Blood Urea Nitrogen 17 mg/dL (9-16); Calcium 9.2 mg/dL (8.4-10.2); Carbon Dioxide 25 mmol/L (22-29); Chloride 109 mmol/L (96-108); Creatinine Clr Calc Pharmacy 77.3; Estimated Glomerular Filt Rate > 60; Glucose Random 124 mg/dL (60-115); Lipase 28 U/L (8-78); Potassium 3.6 mmol/L (3.3-5.1); Sodium 143 mmol/L (135-145); Total Protein 6.7 g/dL (6.5-8.0)
[2022-09-22 02:49] VITALS: BP 115/67; PULSE 77; RESP 20; TEMP 36.8; O2SAT 97
--- NOTE | 2022-09-22 02:49 | PC.NURSE ---
VSS at this time. Pt denies any needs. Awaiting Provider eval.
--- NOTE | 2022-09-22 04:43 | PC.NURSE ---
Provider at bedside for evaluation.
--- NOTE | 2022-09-22 04:48 | ED_ITS ---
HPI - Abdominal Pain General Chief Complaint: Abdominal Pain Stated Complaint: abd pain, vomitting diarrhea Time Seen by Provider: 09/22/22 04:18 Source: patient Mode of arrival: ambulatory Limitations: no limitations History of Present Illness HPI narrative: 51-year-old female presents with abdominal pain, nausea, vomiting and diarrhea. Symptoms started today. Symptoms are moderate to severe. The abdominal pain is generalized. It is intermittent. It is associated with the vomiting. She is not vomiting she is pain free. His 1st vomiting is go she has had 5 episodes. Has been nonbloody, non bilious. She has also had 3 episodes of loose stool. Again there has been no blood in her stool. At this time, she is pain free. Her nausea is very mild. She denies any fevers chills. No sick contacts. No respiratory complaints. Related Data Home Medications Medication Instructions Recorded Confirmed albuterol sulfate 2.5 mg/3 mL 2.5 mg inhalation Q6H 06/09/20 08/27/22 (0.083 %) solution for nebulization betamethasone dipropionate 0.05 % topical 06/09/20 08/27/22 lotion desonide 0.05 % topical ointment topical 06/09/20 08/27/22 duloxetine 60 mg capsule,delayed mg PO 06/09/20 08/27/22 release fluticasone propionate 50 intranasal 06/09/20 08/27/22 mcg/actuation nasal spray,suspension ketoconazole 2 % shampoo topical 06/09/20 08/27/22 montelukast 10 mg tablet 10 mg PO DAILY 06/09/20 08/27/22 albuterol sulfate 90 mcg/actuation 2 puff inhalation Q4H PRN wheezing 08/18/20 08/27/22 aerosol inhaler apremilast 30 mg tablet 30 mg PO BID 08/18/20 08/27/22 budesonide-formoterol HFA 160 inhalation 08/18/20 08/27/22 mcg-4.5 mcg/actuation aerosol inhaler umeclidinium 62.5 mcg/actuation 2 inh inhalation DAILY 08/18/20 08/27/22 blister powder for inhalation zinc 50 mg tablet 50 mg PO DAILY 08/18/20 08/27/22 amitriptyline 25 mg tablet 25 mg PO 08/24/21 08/27/22 Previous Rx's Medication Instructions Recorded cholecalciferol (vitamin D3) 50 50 mcg PO DAILY 30 days #30 caps 08/24/21 mcg (2,000 unit) capsule naproxen 500 mg tablet (Naprosyn) 500 mg PO BID #20 tabs 10/10/21 tamsulosin 0.4 mg capsule (Flomax) 0.4 mg PO BEDTIME #30 caps 10/10/21 prednisone 20 mg tablet 20 mg PO DAILY 5 days #5 tabs 10/11/21 famotidine 20 mg tablet 20 mg PO BID #20 tabs 09/22/22 ondansetron 4 mg disintegrating 4 mg PO Q6H PRN nausea and 09/22/22 tablet vomiting #10 tabs Allergies Allergy/AdvReac Type Severity Reaction Status Date / Time clindamycin [CLINDAMYCIN] Allergy Severe RASH Verified 09/21/22 23:33 Sulfa (Sulfonamide Allergy Mild NAUSEA & Verified 09/21/22 23:33 Antibiotics) VOMITING [SULFA (SULFONAMIDE ANTIBIOTICS)] doxycycline [DOXYCYCLINE] Allergy Unknown UNK Verified 09/21/22 23:33 linezolid [LINEZOLID] Allergy Unknown UN Verified 09/21/22 23:33 rifampin [RIFAMPIN] Allergy Unknown UNK Verified 09/21/22 23:33 [facility] Past Medical History Medical History Chest pain Shade's disease Multinodular thyroid Renal calculi Vitamin D deficiency Surgical History History of laparoscopy Hx of hernia repair Family History Family History Father Diabetes Hypertension Mother Heart disease Hypertension Social History Social History Alcohol intake: never Patient Tobacco Use Status: Never used Tobacco Advance Directives: No Advance Directives Information Provided: Yes Physical Exam ED Vital Signs: Vital Signs - 24 hr 09/21/22 23:29 09/21/22 23:33 09/22/22 02:49 Temperature 98.2 F 98.2 F Pulse Rate 84 77 Respiratory Rate 18 20 Blood Pressure 162/89 H 115/67 Pulse Oximetry 97 97 Oxygen Delivery Method Room Air Room Air BMI result Body Mass Index 19.4 GEN: Well developed, no acute distress, alert, oriented HEENT: Normocephalic, atraumatic, normal external ears, nose appears normal, no oropharyngeal edema or exudates Eyes: Normal to appearance Neck: Supple, no lymphadenopathy Respiratory: Talks in complete sentences, no respiratory distress, clear to auscultation bilaterally Cardiovascular: Regular rate and rhythm, no murmurs rubs or gallops Abdomen: Soft, nontender, nondistended, no guarding, no rebound Back: No CVA tenderness Extremities: No clubbing cyanosis or edema Neurologic: No focal neurologic deficits, cranial nerves 2-12 intact, strength is 5/5 bilaterally, gait normal Skin: No rash Course Course Course Narrative: 51-year-old female presents with abdominal pain, nausea, vomiting and diarrhea. Her examination is benign. There is no abdominal tenderness, rebound or guarding. There is negative Mendoza sign no McBurney's point tenderness. She has no CVA tenderness. Doubt acute appendicitis, cholecystitis, renal colic. Or likely than not this is a viral gastroenteritis. Other possible diagnosis could include IBD, IBS, bacterial overgrowth. Laboratory analysis did reveal mild hyperglycemia and an elevated white blood cell count consistent with infectious process. Given the fact that her exam is benign, I do not believe patient warrants imaging at this time. Patient be treated symptomatically with instructions to return for more severe symptoms. Patient is comfortable with this discharge plan. Medical Decision Making Medical Decision Making MDM Narrative: 51-year-old female presents with abdominal pain, nausea, vomiting and diarrhea. Her examination is benign. There is no abdominal tenderness, rebound or guarding. There is negative Mendoza sign no McBurney's point tenderness. She has no CVA tenderness. Doubt acute appendicitis, cholecystitis, renal colic. Or likely than not this is a viral gastroenteritis. Other possible diagnosis could include IBD, IBS, bacterial overgrowth. Laboratory analysis did reveal mild hyperglycemia and an elevated white blood cell count consistent with infectious process. Given the fact that her exam is benign, I do not believe patient warrants imaging at this time. Patient be treated symptomatically with instructions to return for more severe symptoms. Patient is comfortable with this discharge plan. Differential Diagnosis Differential Diagnoses: The differential diagnosis associated with the presentation includes (Gastroenteritis, IBD, IBS, colitis, diverticulitis, cholecystitis, appendicitis, bacterial overgrowth, peptic ulcer, gastritis, GERD) Admission/Observation Consideration of admission/observation: Escalation of care including admission/observation considered Lab Data MDM Lab Attestation statement: I reviewed the patient's lab results. 09/22/22 00:07 09/22/22 00:07 Labs: Lab Results 09/22/22 09/22/22 09/22/22 Range/Units 00:07 00:07 00:07 WBC 15.9 H (4.8-10.8) X10*3/uL RBC 4.46 (4.20-5.50) X10*6/uL Hgb 13.0 (12.0-16.0) g/dl Hct 40.2 (37.0-47.0) % MCV 90.1 (80.0-98.0) fL MCH 29.1 (27.0-33.0) pg MCHC 32.3 (31.0-35.0) g/dl RDW 13.9 (11.0-16.0) % Plt Count 366 (160-400) X10*3/uL MPV 9.0 L (9.4-12.3) fL Immature Gran % (Auto) 0.4 (0.0-0.4) % Neut % (Auto) 93.1 H (45-73) % Lymph % (Auto) 4.7 L (20-40) % [place] % (Auto) 1.1 L (2-11) % Eos % (Auto) 0.3 (0-4) % Baso % (Auto) 0.4 (0-2) % Lymph # (Auto) 0.8 L (1.2-4.9) X10*3/uL [place] # (Auto) 0.2 (0.1-1.2) X10*3/uL Eos # (Auto) 0.0 (0.0-0.4) X10*3/uL Baso # (Auto) 0.1 (0.0-0.2) X10*3/uL Abs Immat Gran (auto) 0.06 H (0.00-0.03) X10*3/uL Absolute Neuts (auto) 14.8 H (2.0-8.3) x10*3/uL Absolute Nucleated RBC 0.000 (0.0-0.012) X10*3/uL Nucleated RBC % (auto) 0.0 (0.0-0.2) /100WBC Smear Tech's Comments VERIFIED Sodium 143 (135-145) mmol/L Potassium 3.6 (3.3-5.1) mmol/L Chloride 109 H (96-108) mmol/L Carbon Dioxide 25 (22-29) mmol/L Anion Gap 13 (12-20) BUN 17 H (9-16) mg/dL Creatinine 0.78 (0.5-1.4) mg/dL Estim Creat Clear Calc 77.3 Estimated GFR > 60 Random Glucose 124 H (60-115) mg/dL Calcium 9.2 (8.4-10.2) mg/dL Total Bilirubin 0.5 (0.0-1.0) mg/dL Direct Bilirubin 0.2 (0.0-0.5) mg/dL AST 16 (5-31) U/L ALT 10 (0-31) U/L Alkaline Phosphatase 104 (39-117) U/L Total Protein 6.7 (6.5-8.0) g/dL Albumin 3.9 (3.5-5.0) g/dL Lipase 28 (8-78) U/L Urine Color Urine Appearance Urine pH (5.0-9.0) Ur Specific [place] (1.005-1.025) Urine Protein (Neg-Trace) mg/dL Urine Glucose (UA) (Negative) mg/dL Urine Ketones (Negative) mg/dL Urine Blood (Negative) Urine Nitrite (Negative) Ur Leukocyte Esterase (Negative) COVID-19 (CK) (Negative) COVID-19 Clin Com Influenza Type A (DANYELLE) Negative (Negative) Influenza Type B (DANYELLE) Negative (Negative) Influenza A & B Note See Note 09/22/22 09/22/22 Range/Units 00:07 00:20 WBC (4.8-10.8) X10*3/uL RBC (4.20-5.50) X10*6/uL Hgb (12.0-16.0) g/dl Hct (37.0-47.0) % MCV (80.0-98.0) fL MCH (27.0-33.0) pg MCHC (31.0-35.0) g/dl RDW (11.0-16.0) % Plt Count (160-400) X10*3/uL MPV (9.4-12.3) fL Immature Gran % (Auto) (0.0-0.4) % Neut % (Auto) (45-73) % Lymph % (Auto) (20-40) % [place] % (Auto) (2-11) % Eos % (Auto) (0-4) % Baso % (Auto) (0-2) % Lymph # (Auto) (1.2-4.9) X10*3/uL [place] # (Auto) (0.1-1.2) X10*3/uL Eos # (Auto) (0.0-0.4) X10*3/uL Baso # (Auto) (0.0-0.2) X10*3/uL Abs Immat Gran (auto) (0.00-0.03) X10*3/uL Absolute Neuts (auto) (2.0-8.3) x10*3/uL Absolute Nucleated RBC (0.0-0.012) X10*3/uL Nucleated RBC % (auto) (0.0-0.2) /100WBC Smear Tech's Comments Sodium (135-145) mmol/L Potassium (3.3-5.1) mmol/L Chloride (96-108) mmol/L Carbon Dioxide (22-29) mmol/L Anion Gap (12-20) BUN (9-16) mg/dL Creatinine (0.5-1.4) mg/dL Estim Creat Clear Calc Estimated GFR Random Glucose (60-115) mg/dL Calcium (8.4-10.2) mg/dL Total Bilirubin (0.0-1.0) mg/dL Direct Bilirubin (0.0-0.5) mg/dL AST (5-31) U/L ALT (0-31) U/L Alkaline Phosphatase (39-117) U/L Total Protein (6.5-8.0) g/dL Albumin (3.5-5.0) g/dL Lipase (8-78) U/L Urine Color Yellow Urine Appearance Cloudy Urine pH 6.0 (5.0-9.0) Ur Specific [place] 1.020 (1.005-1.025) Urine Protein Negative (Neg-Trace) mg/dL Urine Glucose (UA) Negative (Negative) mg/dL Urine Ketones Negative (Negative) mg/dL Urine Blood Negative (Negative) Urine Nitrite Negative (Negative) Ur Leukocyte Esterase Negative (Negative) COVID-19 (CK) Negative (Negative) COVID-19 Clin Com See Note Influenza Type A (DANYELLE) (Negative) Influenza Type B (DANYELLE) (Negative) Influenza A & B Note Tests considered The following testing was considered but not selected: CT of the abdomen and pelvis however, patient's abdomen is benign. There is no indication for emergent imaging at this time. Prescription Management I considered prescription management with: Pain Medication Discharge Plan Discharge Clinical Impression: Abdominal pain, Gastroenteritis Patient Disposition: Home, Self-Care Instructions: Gastroenteritis (ED), Acute Nausea and Vomiting (ED) Additional Instructions: Your seen this morning for abdominal pain, nausea, vomiting and diarrhea. Her symptoms are most consistent with a viral gastroenteritis. Laboratory findings did reveal mildly elevated blood sugar and an elevated white blood cell count. Please make sure you keep herself appropriately hydrated drinking plenty of fluids throughout the day. The have nausea, take Zofran 4 mg underneath her tongue. I prescribed famotidine to reduce the acid secretion. If you have any pain or discomfort, Tylenol 1000 mg every 6 hours as needed. For more severe symptoms, inability to tolerate oral intake, please follow-up in the emergency department. Prescriptions: New ondansetron 4 mg tablet,disintegrating 4 mg PO Q6H PRN (Reason: nausea and vomiting) Qty: 10 0RF famotidine 20 mg tablet 20 mg PO BID Qty: 20 0RF No Action prednisone 20 mg tablet 20 mg PO DAILY 5 Days Qty: 5 0RF naproxen [Naprosyn] 500 mg tablet 500 mg PO BID Qty: 20 0RF tamsulosin [Flomax] 0.4 mg capsule 0.4 mg PO BEDTIME Qty: 30 0RF montelukast 10 mg tablet 10 mg PO DAILY duloxetine 60 mg capsule,delayed release(DR/EC) PO ketoconazole 2 % shampoo topical betamethasone dipropionate 0.05 % lotion topical desonide 0.05 % ointment topical fluticasone propionate 50 mcg/actuation spray,suspension intranasal albuterol sulfate 2.5 mg /3 mL (0.083 %) solution for nebulization 2.5 mg inhalation Q6H apremilast 30 mg tablet 30 mg PO BID budesonide-formoterol 160-4.5 mcg/actuation HFA aerosol inhaler inhalation albuterol sulfate 90 mcg/actuation HFA aerosol inhaler 2 puff inhalation Q4H PRN (Reason: wheezing) umeclidinium 62.5 mcg/actuation blister with device 2 inh inhalation DAILY amitriptyline 25 mg tablet 25 mg PO zinc 50 mg tablet 50 mg PO DAILY cholecalciferol (vitamin D3) 50 mcg (2,000 unit) capsule 50 mcg PO DAILY 30 Days Qty: 30 11RF Referrals: Lorin Ramey MD [Primary Care Provider] - 3 days Print Language: Scottish
[2022-09-22] MEDS: Acetaminophen 325 MG TABLET 975 MG PO (04:54)
[2022-09-22] MEDS: Ondansetron ODT 4 MG TAB.RAPDIS TRANSLINGU (04:54)
[2022-09-22] MEDS: Famotidine 20 MG TABLET PO (04:54)
== END 2022-09-22 05:00 | disposition home or self-care (01) ==
PROVIDERS: Emergency Provider Emergency Medicine; PCP Internal Medicine
DX: K52.9 Noninfective gastroenteritis and colitis, unspecified (principal); R10.84 Generalized abdominal pain; Z20.822 Contact with and (suspected) exposure to COVID-19; Z79.899 Other long term (current) drug therapy
CPT/HCPCS: 36415; 80048; 80076; 81003; 83690; 85025; 87502; 87635; 99283; 99284

== ENCOUNTER → 2022-10-31 09:00 | Outpatient (BNVA) | payer MEDICARE, MEDICAID, SELFPAY | PROVIDERS: PCP Internal Medicine; Referring Provider Internal Medicine; Visit Provider Internal Medicine | DX: R00.2 Palpitations (principal); R06.02 Shortness of breath | CPT/HCPCS: 99202 ==

== ENCOUNTER 2023-01-10 12:54 | Outpatient (AMB) | payer OTHER, MEDICAID, SELFPAY ==
[2023-01-10 12:59] VITALS: BP 100/70; PULSE 79; BMI 18.8
--- NOTE | 2023-01-10 12:59 | A.OFFVIS_ITS ---
Intake Vital Signs 01/10/23 12:59 Height 5 ft 8 in Weight 123 lb 7.342 oz BMI 18.8 BP 100/70 Blood Pressure Location Lt brachial Position Sitting Pulse 79 Pulse Source Pulse Oximeter Intake Visit Reasons: f/up echo/ holter per HS Intake Note: f/up after echo [employer] Required: Yes [employer] Name: melisa cole [id number] Allergies clindamycin [CLINDAMYCIN] Allergy (Severe, Verified 01/10/23 13:07) RASH Sulfa (Sulfonamide Antibiotics) [SULFA (SULFONAMIDE ANTIBIOTICS)] Allergy (Mild, Verified 01/10/23 13:07) NAUSEA & VOMITING doxycycline [DOXYCYCLINE] Allergy (Unknown, Verified 01/10/23 13:07) UNK linezolid [LINEZOLID] Allergy (Unknown, Verified 01/10/23 13:07) UN rifampin [RIFAMPIN] Allergy (Unknown, Verified 01/10/23 13:07) UNK Medication List - Last Reconciled 01/10/23 by JOSE E RizviC albuterol sulfate 2.5 mg inhalation Q6H albuterol sulfate 90 mcg/actuation 2 puffs inhalation Q4H PRN amitriptyline 25 mg PO apremilast 30 mg PO BID betamethasone dipropionate 0.05% topical budesonide-formoterol 160-4.5 mcg/actuation inhalation desonide 0.05% topical duloxetine mg PO fluticasone propionate 50 mcg/actuation intranasal ketoconazole 2% topical montelukast 10 mg PO DAILY naproxen (Naprosyn) 500 mg PO BID ondansetron 4 mg PO Q6H PRN HPI f/up echo/ holter per HS HPI Details Alley is a 52-year-old female with past medical history of COPD who was recently seen for chest discomfort and heart palpitations, Echo and Holter monitor were planned however not completed. Today she reports that she continues to have palpitations in her chest which feel like her heart is flipping. It makes it feel like it is hard for her to breathe and that she has to take a deep breath in. No significant chest discomfort. No dizziness, presyncope, syncope, falls. she has a chronic intermittent cough, worsen last 4 days and will be seeing her PCP later today. She has chronic respiratory issues. she describes herself as very electric and active in the day. [facility] Medical History Chest pain Shade's disease Multinodular thyroid Renal calculi Vitamin D deficiency Surgical History History of laparoscopy Hx of hernia repair Family History Father Diabetes Hypertension Mother Heart disease Hypertension Social History Alcohol intake: never Patient Tobacco Use Status: Never used Tobacco Review of Systems Const All systems reviewed & are unremarkable except as noted in HPI and below ENT Reports dizziness Card Denies chest pain, Denies chest pain at rest, Denies chest pain with activity, Denies rapid heart rate, Denies pedal edema, Denies edema, Denies leg edema, Denies lightheadedness, Denies palpitations, Denies dyspnea, Denies dyspnea on exertion and Denies orthopnea Resp Denies cough, Denies dyspnea and Denies dyspnea on exertion GI Denies hematochezia and Denies change in stool character Musc Denies abnormal gait, Reports limited range of motion, Reports muscle cramps, Denies muscle weakness, Denies numbness, Denies radiating pain into limb, Denies stiffness and Denies tingling Neuro Denies abnormal gait, Reports dizziness, Denies numbness and Denies tingling Endo Denies palpitations Physical Exam Vital Signs: Last Vital Signs Pulse 79 01/10/23 12:59 BP 100/70 01/10/23 12:59 BMI result Body Mass Index 18.8 Const General: cooperative, healthy appearing, comfortable and no acute distress Neck Neck: Yes normal visual inspection Resp Effort & Inspection: normal respiratory effort Auscultation: clear to auscultation bilaterally, no rales, no rhonchi and wheezes ( bilateral expiratory) Cardio Jugular venous distension: no JVD Rate: regular rate Rhythm: regular rhythm Heart sounds: S1 normal heart sound present, S2 normal heart sound present, no murmurs and no rubs GI Inspection: Yes normal to inspection Extrem General: Yes normal to inspection and No no pedal edema Psych Appearance: grossly normal Mental Status: mental status grossly normal Speech and movement: Normal speech and movement present Assessment & Plan Assessment & Plan (1) Palpitations: Code(s): R00.2 - Palpitations Plan: Report of heart palpitations which feel like flipping in her chest. It can go on for a few seconds before resolving. She reports her palpitations have increased in frequency. She denies any presyncope, syncope, falls. No chest discomfort. He does have chronic breathing issues and uses albuterol routinely. On last visit echocardiogram and Holter monitor were ordered however not completed. At this time will have her proceed with plan testing of echocardiogram and Holter. Plan to call her with results. Cardiology follow-up in 3 months, sooner (2) SOB (shortness of breath): Code(s): R06.02 - Shortness of breath Plan: chronic shortness of breath which she states is from bronchiectasis, pulmonary fibrosis and COPD. She follows with pulmonology. There are bilateral wheezes noted on examination today. She does not appear in any acute distress. She tells me she has had an increased cough in the last few days and will be seeing her PCP later today. Orders: Orders CA echo transthoracic complete Today R00.2 - Palpitations, R07.9 - Chest pain, unspecified ECG 3 day holter monitor Today R00.2 - Palpitations, R06.02 - Shortness of breath Coding Level of Care Code Est Pt Level 3 (65431) Diagnoses Palpitations R00.2 SOB (shortness of breath) R06.02 Time Spent (min) 16 Comment Chart review, documentation, interview, assessment
== END 2023-01-10 13:24 | disposition home or self-care (01) ==
PROVIDERS: Visit Provider Nurse Practitioner Family
DX: R00.2 Palpitations (principal); R06.02 Shortness of breath
CPT/HCPCS: 99213

== ENCOUNTER → 2023-01-10 12:54 | Outpatient (BNVA) | payer OTHER, MEDICAID, SELFPAY | PROVIDERS: Visit Provider Nurse Practitioner Family | DX: R00.2 Palpitations (principal); R06.02 Shortness of breath | CPT/HCPCS: 99212 ==

== ENCOUNTER 2023-04-05 08:27 | Outpatient (REF) | payer MEDICARE, SELFPAY | END 2023-04-05 08:28 | disposition home or self-care (01) | LOC: HO.US 08:27 | PROVIDERS: PCP Internal Medicine; Visit Provider Urology | DX: N20.0 Calculus of kidney (principal) | CPT/HCPCS: 76775 ==

== ENCOUNTER 2023-04-05 13:53 | Outpatient (REF) | payer MEDICARE, SELFPAY | END 2023-04-05 13:54 | disposition home or self-care (01) | LOC: HO.MAMMO 13:53 | PROVIDERS: PCP Internal Medicine; Visit Provider Internal Medicine | DX: Z12.31 Encounter for screening mammogram for malignant neoplasm of breast (principal) | CPT/HCPCS: 77063; 77067 ==

== ENCOUNTER → 2023-04-05 14:15 | Outpatient (BNV) | payer MEDICARE, SELFPAY | PROVIDERS: PCP Internal Medicine; Visit Provider Radiology Diagnostic Radiology | DX: Z12.31 Encounter for screening mammogram for malignant neoplasm of breast (principal) | CPT/HCPCS: 77063; 77067 ==

== ENCOUNTER 2023-04-09 13:15 | Outpatient (AMB) | payer MEDICARE, SELFPAY ==
[2023-04-09 13:22] VITALS: BP 110/70; PULSE 89; O2SAT 96; BMI 19.3
--- NOTE | 2023-04-09 13:22 | MHC.OFFVIS ---
Intake Vital Signs 04/09/23 13:22 Height 5 ft 8 in Weight 127 lb BMI 19.3 BP 110/70 Blood Pressure Location Rt brachial Position Sitting Pulse 89 Pulse Source Pulse Oximeter Pulse Oximetry (%) 96 Oxygen Delivery Method Room Air Intake Visit Reasons: Bronchiectasis Rn Labor Delivery Required: No Allergies clindamycin [CLINDAMYCIN] Allergy (Severe, Verified 04/09/23 13:24) RASH Sulfa (Sulfonamide Antibiotics) [SULFA (SULFONAMIDE ANTIBIOTICS)] Allergy (Mild, Verified 04/09/23 13:24) NAUSEA & VOMITING doxycycline [DOXYCYCLINE] Allergy (Unknown, Verified 04/09/23 13:24) UNK linezolid [LINEZOLID] Allergy (Unknown, Verified 04/09/23 13:24) UN rifampin [RIFAMPIN] Allergy (Unknown, Verified 04/09/23 13:24) UNK HPI HPI Comments History of Present Illness Details The patient is here for pulmonary evaluation. The patient is a 52 year woman with a known history of bronchiectasis, COPD and underlying interstitial lung disease, along with inflammatory arthritis and psoriasis. The patient states that she was premature and did had on developed lungs at the time. She did have respiratory issues throughout her life. However, about 8 years ago she had worsening respiratory symptoms and was found to have some pulmonary nodules. She was followed closely at [facility] for most of her pulmonary care. Her last CT scan of the chest I personally reviewed with the patient. She did have some interstitial changes at the bases but more significantly evidence of bronchiectasis with significant tree-in-bud. Also to note, the patient did have a bronchoscopy back in 2014 at [facility] in biopsies demonstrated chronic inflammation which was nonspecific. Her cultures at that time were positive for Staph aureus. She has responded well to the Symbicort inhaler. Patient does have a nebulizer although she does not using regularly. On examination she does have significant wheezing and chest tightness. [facility] Medical History (Updated 04/09/23 @ 21:53 by Price Grant MD) Pulmonary nodules ILD (interstitial lung disease) Asthma-COPD overlap syndrome Bronchiectasis Chest pain Renal calculi Vitamin D deficiency Multinodular thyroid Shade's disease Surgical History Hx of hernia repair History of laparoscopy Family History Father Diabetes Hypertension Mother Heart disease Hypertension Social History Alcohol intake: never Patient Tobacco Use Status: Never used Tobacco Review of Systems Const Denies fever(s) ENT Reports nasal congestion and Reports nasal discharge Card Denies chest pain and Reports dyspnea on exertion Resp Reports chest congestion, Reports cough, Reports dyspnea on exertion and Reports wheezing GI Reports no additional complaints Musc Reports as per HPI, Reports arthralgias and Reports joint swelling Skin/Breast Reports rash Neuro Reports no additional complaints Konrad/Lymph Denies easy bleeding, Denies easy bruising and Denies lymphadenopathy Aller/Immun Reports wheezing Physical Exam Vital Signs: Last Vital Signs Pulse 89 04/09/23 13:22 BP 110/70 04/09/23 13:22 Pulse Ox 96 04/09/23 13:22 Oxygen Delivery Method Room Air 04/09/23 13:22 BMI result Body Mass Index 19.3 Const General: comfortable HEENT Head: Yes normocephalic Neck Neck: Yes supple Chest Chest palpation & inspection: normal inspection of the chest Resp Effort & Inspection: normal respiratory effort and prolonged expiratory phase Auscultation: rhonchi, wheezes and diminished lung sounds Cardio Rate: regular rate Rhythm: regular rhythm Heart sounds: S1 normal heart sound present and S2 normal heart sound present GI Palpation (GI): Soft to palpation Skin General skin exam: no rashes or lesions noted Extrem General: Yes no clubbing, cyanosis or edema Assessment & Plan Assessment & Plan (1) Bronchiectasis: Code(s): J47.9 - Bronchiectasis, uncomplicated Qualifiers: Bronchiectasis type: with acute exacerbation Qualified Code(s): J47.1 - Bronchiectasis with (acute) exacerbation (2) SOB (shortness of breath): Code(s): R06.02 - Shortness of breath (3) Asthma-COPD overlap syndrome: Code(s): J44.89 - Other specified chronic obstructive pulmonary disease (4) ILD (interstitial lung disease): Code(s): J84.9 - Interstitial pulmonary disease, unspecified (5) Pulmonary nodules: Code(s): R91.8 - Other nonspecific abnormal finding of lung field Plan continue symbicort BID start Prednisone taper start nebulizer therapy with albuterol followed by hypertonic saline CPT with acapella valve start Azithromycin Sputum: GS and culture, AFB and culture PFTs CT chest bloodwork / allergy testing F/U 8 weeks Orders: Orders Basic Metabolic Panel Today J47.9 - Bronchiectasis, uncomplicated Immunoglobulin E Today J47.9 - Bronchiectasis, uncomplicated Acid-fast Culture + Smear Today J47.9 - Bronchiectasis, uncomplicated Sputum Cult + Gram stain Today J47.9 - Bronchiectasis, uncomplicated PFT pulmonary function test Today R91.8 - Other nonspecific abnormal finding of lung field Complete Blood Count Auto Diff Today J47.9 - Bronchiectasis, uncomplicated Immunoglobulin G Subclasses Today J47.9 - Bronchiectasis, uncomplicated Rast Allergen Today J47.9 - Bronchiectasis, uncomplicated CT chest wo IV con Today R91.8 - Other nonspecific abnormal finding of lung field Medications: New azithromycin Take 1 tablet on Saturday/Saturday/Saturday 250 mg PO 3XW 28 days 12 tabs 6RF K21.9 - Gastro-esophageal reflux disease without esophagitis sodium chloride 3% 4 mL inhalation BID 240 mL 11RF 30 days prednisone PO daily; Take 6 tabs daily x 3 days, then 5 tabs x 3 days, then 4 tabs x 3 days, then 3 tabs x 3 days, then 2 tabs daily x 3 days, then 1 tab x 3 days to complete. 63 tabs 0RF 18 days Coding Level of Care Code New Pt Level 5 (44164) Diagnoses Bronchiectasis with acute exacerbation J47.1 Bronchiectasis type: with acute exacerbation SOB (shortness of breath) R06.02 Asthma-COPD overlap syndrome J44.89 ILD (interstitial lung disease) J84.9 Pulmonary nodules R91.8 Time Spent (min) 60
== END 2023-04-09 14:01 | disposition home or self-care (01) ==
PROVIDERS: PCP Internal Medicine; Referring Provider Internal Medicine; Visit Provider Hospitalist
DX: J47.1 Bronchiectasis with (acute) exacerbation (principal); R06.02 Shortness of breath; J44.89 Other specified chronic obstructive pulmonary disease; J84.9 Interstitial pulmonary disease, unspecified; R91.8 Other nonspecific abnormal finding of lung field
CPT/HCPCS: 99205

== ENCOUNTER 2023-04-09 13:15 | Outpatient (REF) | payer MEDICARE, SELFPAY ==
[2023-04-09 14:13] LABS: MANUAL DIFF FLAG NO
[2023-04-09 14:44] LABS: Basophils Absolute Auto 0.1 X10*3/uL (0.0-0.2); Basophils Percent Auto 0.7 % (0-2); Eosinophils Absolute Auto 0.1 X10*3/uL (0.0-0.4); Eosinophils Percent Auto 0.9 % (0-4); Hematocrit 41.5 % (37.0-47.0); Hemoglobin 13.5 g/dl (12.0-16.0); Imm Gran Abs Auto 0.04 X10*3/uL (0.00-0.03); Imm Gran Pct Auto 0.3 % (0.0-0.4); Lymphocytes Absolute Auto 2.4 X10*3/uL (1.2-4.9); Lymphocytes Percent Auto 19.9 % (20-40); Mean Corpuscular HGB Conc 32.5 g/dl (31.0-35.0); Mean Corpuscular Hemoglobin 29.7 pg (27.0-33.0); Mean Corpuscular Volume 91.2 fL (80.0-98.0); Mean Platelet Volume 10.1 fL (9.4-12.3); Monocytes Absolute Auto 0.8 X10*3/uL (0.1-1.2); Monocytes Percent Auto 6.4 % (2-11); Neutrophils Absolute Auto 8.6 x10*3/uL (2.0-8.3); Neutrophils Percent Auto 71.8 % (45-73); Platelet Count 374 X10*3/uL (160-400); Red Blood Count 4.55 X10*6/uL (4.20-5.50); Red Cell Distribution Width 13.5 % (11.0-16.0)
[2023-04-09 15:13] LABS: Anion Gap 14 (12-20); Blood Urea Nitrogen 16 mg/dL (9-16); Calcium 10.2 mg/dL (8.4-10.2); Carbon Dioxide 23 mmol/L (22-29); Chloride 107 mmol/L (96-108); Estimated Glomerular Filt Rate > 60; Glucose Random 81 mg/dL (60-115); Potassium 3.8 mmol/L (3.3-5.1); Sodium 140 mmol/L (135-145)
[2023-04-11 02:19] LABS: Immunoglobulin E 4 kU/L (<OR=114)
[2023-04-11 12:59] LABS: Immunoglobulin G Subclass 1 497 mg/dL (382-929); Immunoglobulin G Subclass 2 586 mg/dL (241-700); Immunoglobulin G Subclass 3 156 mg/dL (22-178); Immunoglobulin G Subclass 4 70.7 mg/dL (4-86); Immunoglobulin G Total 1186 mg/dL (600-1640)
== END 2023-04-09 13:16 | disposition home or self-care (01) ==
LOC: HO.LAB 13:15
PROVIDERS: PCP Internal Medicine; Visit Provider Hospitalist
DX: Z91.09 Other allergy status, other than to drugs and biological substances (principal); J47.1 Bronchiectasis with (acute) exacerbation; R06.02 Shortness of breath; J44.89 Other specified chronic obstructive pulmonary disease; J84.9 Interstitial pulmonary disease, unspecified; R91.8 Other nonspecific abnormal finding of lung field
CPT/HCPCS: 36415; 80048; 82784; 82785; 85025; 86003; 87070; 87077; 87116; 87185; 87205; 87206

== ENCOUNTER → 2023-06-03 09:54 | Outpatient (REF) | payer MEDICARE, SELFPAY ==
--- NOTE | 2023-06-03 09:57 | HM_ITS ---
* Total monitoring time 3 days. * Underlying rhythm is sinus. Average ventricular rate 79/Min. Range 52 to 138/Min. * Rare supraventricular ventricular ectopy with minimal burden. * No significant pauses or AV blocks. * No patient markers or events in diary. MTDD
--- NOTE | 2023-06-03 09:57 | CA_ITS ---
Transthoracic Echocardiogram Patient (Last, First, Middle): Alley Palma N Gender: Female Date of : 1970 Age: 52 Procedure Date: 06/03/2023 Procedure Type: Transthoracic Echocardiogram Location: OP Height: 172.72 cm Weight: 56.7 kg BSA: 1.67 m2 Heart Rate: bpm BP: 120 / 76 mmHg [employer]: BERTA/SACHI Referring MD: Ailyn Camacho ONSHORE DIVERNigel Symptoms: R07.9 - Chest pain, unspecified Study Quality: Adequate ECG Rhythm: Sinus Conclusions: - The left ventricular systolic function is normal. The calculated ejection fraction is 60% by biplane method. - No obvious valvular pathology seen on this study. Findings Left Ventricle Normal left ventricular cavity size. There is normal left ventricular wall thickness. The left ventricular systolic function is normal. The calculated ejection fraction is 60% by biplane method. There is no evidence of regional wall motion abnormalities. Diastolic function is normal for age. LV peak GLS -18.3%. Right Ventricle Normal right ventricular cavity size and systolic function. Atria Both atria are normal in size. Aortic Valve There is a normal trileaflet aortic valve. There is no aortic valve stenosis. There is no aortic valve regurgitation. Mitral Valve The mitral valve appears normal. There is no mitral valve regurgitation. There is no mitral valve stenosis. Pulmonic Valve There is trace pulmonic valve regurgitation. Tricuspid Valve There is no tricuspid valve regurgitation. Tricuspid regurgitation envelope is inadequate for calculation of right ventricular systolic pressure. Great Vessels The asc aorta is normal in size. Venous The inferior vena cava is normal in size and collapses greater than 50% with inspiration. Pericardium/Pleural There is no evidence of pericardial effusion. Prior Study Comparison No prior study available for comparison. Recommendations, Care & Conclusions No obvious valvular pathology seen on this study. Measurements 2D Linear Measurements IVSd: 0.78 0.6-0.9/0.6-1.0 cm LVIDd: 4.44 3.9-5.3/4.2-5.9 cm LVIDd Index: 2.66 2.4-3.2/2.2-3.1 cm/m2 LVIDs: 2.72 2.0-3.6 cm LVPWd: 0.76 0.7-1.1 cm LA Diam: 2.70 2.7-3.8/3.0-4.0 cm LAIDs Index: 1.62 1.5-2.3 cm/m2 LV Mass: 131.15 67-162/88-224 g LV Mass Index: 78.53 43-95/49-115 g/m2 LVOT Diam: 1.80 3.0+(-)1.3 cm 2D Systolic Function EF 4C: 59.90 >55% EF 2C: 59.80 >55% EF BiP: 59.70 >55% Mitral Valve MV Pk E: 0.78 MV PK A: 0.57 MV Decel Time: 183.00 E/A: 1.40 E'Lateral: 12.00 E'Medial: 7.62 E/E' Med: 10.20 E/E' Lat: 6.50 PHT: 54.00 MVA PHT: 4.07 Decel [place]: 4.23 Aortic Valve AoV Pk Laci: 1.33 AoV Mn Laci: 0.92 AoV VTI: 0.27 AoV Pk Grad: 7.00 Aov Mn Grad: 4.00 IDA Cont.VTI: 1.89 LVOT LVOT Pk Laci: 0.95 LVOT Mn Laci: 0.67 LVOT VTI: 0.20 LVOT Pk Grad: 4.00 LVOT Mn Grad: 2.00 LVOT Diam: 1.80 LVOT Area: 2.54 Diastolic Function MV Pk E: 0.78 MV Pk A: 0.57 E/A: 1.40 E'Medial: 7.62 E/E' Med: 10.20 E' Laterial: 12.00 E/E' Lat: 6.50 Right Ventricle TAPSE (mm): 26.10 TVS' Laci: 13.20 Tricuspid Valve RA Press: 3.00 Great Vessels Aorta Sinus of Valsalva: 2.85 2.0-3.[address] [place]: 2.28 1.7-3.4 cm Ao Asc: 2.80 2.1-3.4 cm Updated in Other Vendor System with Status of Final Manolo Hoyos MD electronically signed on 06/03/2023 12:04:01 PM with status of Final
== END ==
LOC: HO.CARD 09:54
PROVIDERS: PCP Internal Medicine; Visit Provider Nurse Practitioner Family
DX: R07.9 Chest pain, unspecified (principal); R00.2 Palpitations; R06.02 Shortness of breath
CPT/HCPCS: 93242; 93306; 93356

== ENCOUNTER → 2023-06-03 09:57 | Outpatient (BNV) | payer MEDICARE, SELFPAY | PROVIDERS: PCP Internal Medicine; Visit Provider Internal Medicine | DX: I47.10 Supraventricular tachycardia, unspecified (principal) | CPT/HCPCS: 93244; 93306 ==

== ENCOUNTER 2023-06-04 09:44 | Outpatient (REF) | payer MEDICARE, SELFPAY ==
--- NOTE | ~2023-06-04 | CT_ITS ---
EXAMINATION: CT CHEST WITHOUT CONTRAST CLINICAL INFORMATION: Nonspecific abnormal finding of lung field pulmonary nodule COMPARISON: Chest radiograph from 08/27/2022, CT abdomen from 10/10/2021, ultrasound thyroid from 07/12/2022 TECHNIQUE: Multidetector volumetric CT imaging of the chest was done. Axial MIP volume rendering provided. Sagittal and coronal reformatted images were obtained. This CT examination was performed using dose optimization techniques as appropriate, variously including the following: *Automated exposure control *Adjustment of mA and/or kV according to patient size (this includes techniques or standardized protocols for targeted exams where dose is matched to indication/reason for exam; i.e. extremities or head) *Use of iterative reconstruction technique DLP: 89 mGy-cm FINDINGS: LUNGS/PLEURA: Biapical pleural parenchymal scarring. Peripheral reticular nodular opacities. Bronchiectatic changes with reticular and tree-in-bud nodular foci throughout the bilateral lung brennan the largest nodule measuring 1.3 cm along the posterior lateral aspect of the right middle lobe (series 7, image 314). Some of these nodular foci demonstrate cystic components possibly reflecting bronchiectatic changes in these regions. Multiple regions of mucus plugging. Regions of traction bronchiectasis. Calcified granuloma left lower lobe. Redemonstration of plaque-like nodularity with calcification along the posterior medial aspect of the left lower lobe, stable. Central airways are patent. No pneumothorax. No large pleural effusion. MEDIASTINUM: Heart is not enlarged. No pericardial effusion. No coronary calcium lesions. Aorta is nonaneurysmal. Main pulmonary artery is not enlarged. Prominent mediastinal lymph nodes the largest in the precarinal space measuring 1.2 cm in short axis. Hypodense subcentimeter focus in the left thyroid lobe better evaluated on previous dedicated thyroid ultrasound. AXILLA: No lymphadenopathy. UPPER ABDOMEN: Nonobstructive calculus in the right renal upper pole/interpolar region measuring 3 mm. Nonobstructive left renal calculus measuring 1 mm. OSSEOUS STRUCTURES: Multilevel degenerative changes of the thoracolumbar spine. CT/CT chest wo IV con IMPRESSION: 1. Peripheral reticular nodular opacities. Bronchiectatic changes with reticular and tree-in-bud nodular foci throughout the bilateral lung brennan the largest nodule measuring 1.3 cm along the posterior lateral aspect of the right middle lobe. Some of these nodular foci demonstrate cystic components possibly reflecting bronchiectatic changes in these regions. Multiple regions of mucus plugging. Regions of traction bronchiectasis. Findings are nonspecific and may reflect atypical viral pneumonitis versus other infectious/inflammatory etiologies. Underlying neoplastic etiology not excluded. Follow-up as per Fleischner criteria. 2. Prominent mediastinal lymph nodes the largest in the precarinal space measuring 1.2 cm in short axis. 3. Bilateral nephrolithiasis without acute process. Various management parameters for solitary pulmonary nodules are in the literature. According to the Fleischner Society, recommendations for pulmonary nodules are as follows: According to the UPDATED 2017 Fleischner Society recommendations, the advised follow-up imaging for a single solid nodule measuring 8 mm or greater is: Consider CT, PET/CT, or tissue sampling at 3 months.
--- NOTE | 2023-06-04 11:43 | PFT_ITS ---
Indication: Pulmonary nodule Spirometry [FEV1 to FVC 62%; FEV1 1.87 L which is 113% predicted; FVC 3 L which is 125% predicted. There is a significant response to bronchodilators noted. Maximum voluntary ventilation 47% predicted] Lung Volumes [Total lung capacity 80% predicted] Diffusion Capacity [DLCO 79% predicted] Flow Volume Loops [Obstructive physiology] Comparisons [None] Interpretation [There is an obstructive ventilatory defect consistent with mild COPD. There is a significant response to bronchodilators noted. Also moderate to severe decrease in the maximum voluntary ventilation which could be secondary to deconditioning although could not rule out neuromuscular conditions. Lung volumes are normal except for trying of air trapping and there is a very mild diffusion impairment. Clinical correlation warranted.] MTDD
== END 2023-06-04 09:45 | disposition home or self-care (01) ==
LOC: HO.RESP 09:44
PROVIDERS: PCP Internal Medicine; Visit Provider Hospitalist
DX: R91.8 Other nonspecific abnormal finding of lung field (principal)
CPT/HCPCS: 71250; 94010; 94727; 94729

== ENCOUNTER 2023-07-15 12:52 | Outpatient (REF) | payer MEDICARE, SELFPAY ==
--- NOTE | ~2023-07-15 | US_ITS ---
EXAMINATION: US THYROID CLINICAL INFORMATION: Nontoxic multinodular goiter. COMPARISON: Thyroid ultrasound 07/12/2022 and 08/14/2021. TECHNIQUE: Linear transducer grayscale and color Doppler examination with attention to the region of the thyroid. FINDINGS: SIZE: Measurements of the thyroid lobes and nodules are given in sagittal, anteroposterior and transverse dimensions respectively. Right Thyroid Lobe: 5.2 x 2.1 x 1.7 cm, volume 9.3 mL. Previously 5.1 x 1.8 x 1.9 cm, volume 9.2 mL. Parenchyma: The gland echotexture is homogeneous. Thyroid vascularity is increased. Left Thyroid Lobe: 5.9 x 2.1 x 2.1 cm, volume 13.7 mL. Previously 5.1 x 2.0 x 2.2 cm, volume 11.4 mL. Parenchyma: The gland echotexture is homogeneous. Thyroid vascularity is increased. Isthmus: 0.71 cm in maximum AP dimension. Previously 0.80 cm. Estimated total number of nodules greater than or equal to 1 cm: 3. Battery Plate Remover nodules are described as follows: 1. Location: Right superior. Size: 0.58 x 0.43 x 0.49 cm, volume 0.07 mL. Previously: 0.60 x 0.40 x 0.50 cm, volume 0.10 mL. Nodule characteristics: Composition: Mixed cystic and solid (1). Echogenicity: Hypoechoic (2). Shape: Not taller than wide (0). Margins: Smooth (0). Echogenic Foci: None (0). ACR TI-RADS total points: 3 Previous: 3 ACR TI-RADS category: 3 Previous: 3 Significant change in size (>/= 20% in 2 dimensions and minimal increase of 2 mm or 50% or greater increase in volume): No Change in features: Slightly more cystic Change in ACR TI-RADS risk category: No 2. Location: Right mid. Size: 1.0 x 0.68 x 0.98 cm, volume 0.37 mL. Previously: 0.80 x 0.40 x 0.80 cm, volume 0.10 mL. Nodule characteristics: Composition: Mixed cystic and solid (1). Echogenicity: Hypoechoic (2). Shape: Not taller than wide (0). Margins: Smooth (0). Echogenic Foci: None (0). ACR TI-RADS total points: 3 Previous: 2 ACR TI-RADS category: 3 Previous: 2 Significant change in size (>/= 20% in 2 dimensions and minimal increase of 2 mm or 50% or greater increase in volume): No Change in features: No Change in ACR TI-RADS risk category: Yes 3. Location: Right inferior. Size: 0.30 x 0.37 x 0.35 cm, volume 0.02 mL. Previously: Not seen on the previous study. Nodule characteristics: Composition: Cystic(0). ACR TI-RADS total points: 0 ACR TI-RADS category: 1 4. Location: Left mid. Size: 1.3 x 1.2 x 1.3 cm, volume 1.0 mL. Previously: 1.1 x 1.0 x 1.2 cm, volume 0.70 mL. Nodule characteristics: Composition: Mixed cystic and solid (1). Echogenicity: Hypoechoic (2). Shape: Not taller than wide (0). Margins: Smooth (0). Echogenic Foci: None (0). ACR TI-RADS total points: 3 Previous: 2 ACR TI-RADS category: 3 Previous: 2 Significant change in size (>/= 20% in 2 dimensions and minimal increase of 2 mm or 50% or greater increase in volume): No Change in features: No Change in ACR TI-RADS risk category: Yes 5. Location: Left mid. Size: 1.3 x 1.5 x 1.5 cm, volume 1.5 mL. Previously: 1.3 x 1.2 x 1.4 cm, volume 1.1 mL. Nodule characteristics: Composition: Solid/almost completely solid (2). Echogenicity: Hypoechoic (2). Shape: Not taller than wide (0). Margins: Smooth (0). Echogenic Foci: None (0). ACR TI-RADS total points: 4 Previous: 2 ACR TI-RADS category: 4 Previous: 2 Significant change in size (>/= 20% in 2 dimensions and minimal increase of 2 mm or 50% or greater increase in volume): No Change in features: No Change in ACR TI-RADS risk category: Yes ADDITIONAL FINDINGS: 0.7 x 0.6 x 0.7 cm exophytic cyst is seen extending off the lower pole of the left lobe was not demonstrated on the prior study. TR 1. Previously noted nodule in the lower pole of left lobe is not seen on today's study. NODES: No lymphadenopathy is seen in the tissue surrounding the thyroid gland. US/US thyroid IMPRESSION: Early enlarged heterogeneous thyroid gland with increased vascularity and multiple nodules suggesting multinodular goiter. None of these nodules are highly suspicious at this time. Continued follow-up ultrasound in one year is recommended. ACR TI-RADS RECOMMENDATION REFERENCE: Ultrasound-guided fine-needle aspiration, follow up ultrasound, no further followup. * TR1 (0 point) and TR2 (2 points): No FNA or followup * TR3 (3 points): FNA if more than or equal to 2.5 cm in maximum dimension, follow up ultrasound in 1, 3 and 5 years if 1.5 to 2.4 cm in maximum dimension. * TR4 (4-6 points): FNA if more than or equal to 1.5 cm in maximum dimension, follow up ultrasound in 1, 2, 3 and 5 years if 1 to 1.4 cm in maximum dimension. * TR5 (more than or equal to 7 points): FNA if more than or equal to 1 cm in maximum dimension, follow up ultrasound every year for 5 years if 0.5 to 0.9 cm in maximum dimension. * TR3, TR4 or TR5 nodules that are below the size threshold for follow up receive no followup.
== END 2023-07-15 12:53 | disposition home or self-care (01) ==
LOC: HO.US 12:52
PROVIDERS: PCP Internal Medicine; Visit Provider Internal Medicine Endocrinology, Diabetes & Metabolism
DX: E04.2 Nontoxic multinodular goiter (principal)
CPT/HCPCS: 76536

== ENCOUNTER 2023-07-16 08:10 | Outpatient (REF) | payer MEDICARE, SELFPAY ==
[2023-07-16 08:26] LABS: MANUAL DIFF FLAG NO
[2023-07-16 09:41] LABS: Basophils Absolute Auto 0.1 X10*3/uL (0.0-0.2); Basophils Percent Auto 0.7 % (0-2); Eosinophils Absolute Auto 0.2 X10*3/uL (0.0-0.4); Eosinophils Percent Auto 2.1 % (0-4); Hematocrit 43.4 % (37.0-47.0); Hemoglobin 13.7 g/dl (12.0-16.0); Imm Gran Abs Auto 0.02 X10*3/uL (0.00-0.03); Imm Gran Pct Auto 0.2 % (0.0-0.4); Lymphocytes Absolute Auto 2.4 X10*3/uL (1.2-4.9); Lymphocytes Percent Auto 29.5 % (20-40); Mean Corpuscular HGB Conc 31.6 g/dl (31.0-35.0); Mean Corpuscular Hemoglobin 28.8 pg (27.0-33.0); Mean Corpuscular Volume 91.4 fL (80.0-98.0); Mean Platelet Volume 9.5 fL (9.4-12.3); Monocytes Absolute Auto 0.5 X10*3/uL (0.1-1.2); Monocytes Percent Auto 6.5 % (2-11); Platelet Count 400 X10*3/uL (160-400); Red Blood Count 4.75 X10*6/uL (4.20-5.50); Red Cell Distribution Width 13.3 % (11.0-16.0); White Blood Count 8.2 X10*3/uL (4.8-10.8)
[2023-07-16 10:03] LABS: Alanine Aminotransferase 11 U/L (0-31); Alkaline Phosphatase 103 U/L (39-117); Anion Gap 12 (12-20); Aspartate Amino Transferase 13 U/L (5-31); Bilirubin Total 0.5 mg/dL (0.0-1.0); Blood Urea Nitrogen 15 mg/dL (9-16); Calcium 9.7 mg/dL (8.4-10.2); Carbon Dioxide 26 mmol/L (22-29); Chloride 108 mmol/L (96-108); Cholesterol 192 mg/dL (<200); Estimated Glomerular Filt Rate > 60; Glucose Random 82 mg/dL (60-115); HDL Cholesterol 61 mg/dL (>40); LDL Cholesterol Calculated 122 mg/dL (<100); Sodium 142 mmol/L (135-145); Total Protein 7.6 g/dL (6.5-8.0); Triglycerides 49 mg/dL (<150)
[2023-07-16 10:30] LABS: Free T4 (Free Thyroxine) 0.92 ng/dL (0.71-1.85)
== END 2023-07-16 08:11 | disposition home or self-care (01) ==
LOC: HO.LAB 08:10
PROVIDERS: Absent Provider Internal Medicine; PCP Internal Medicine; Visit Provider Internal Medicine Endocrinology, Diabetes & Metabolism
DX: F32.5 Major depressive disorder, single episode, in full remission (principal); J32.9 Chronic sinusitis, unspecified; J47.9 Bronchiectasis, uncomplicated; L40.52 Psoriatic arthritis mutilans; R63.4 Abnormal weight loss
CPT/HCPCS: 36415; 80053; 80061; 84439; 84443; 85025

== ENCOUNTER 2023-07-17 09:22 | Outpatient (AMB) | payer MEDICARE, SELFPAY ==
--- NOTE | 2023-07-17 09:24 | A.OFFVIS_ITS ---
Intake Vital Signs 07/17/23 09:25 Height 5 ft 8 in Weight 134 lb 11.239 oz BMI 20.5 BP 116/60 Blood Pressure Location Lt brachial Position Sitting Pulse 74 Pulse Source Pulse Oximeter Intake Visit Reasons: NTMNG Intake Note: Patient present today for NTMNG follow up visit. Solar Sales Representative Required: Yes Solar Sales Representative Language: Dipper Fish Name: Anamika medical staff Information Interpreted: non-clinical & clinical Accompanied by: Self / Same As Patient Allergies clindamycin [CLINDAMYCIN] Allergy (Severe, Verified 07/17/23 09:36) RASH Sulfa (Sulfonamide Antibiotics) [SULFA (SULFONAMIDE ANTIBIOTICS)] Allergy (Mild, Verified 07/17/23 09:36) NAUSEA & VOMITING doxycycline [DOXYCYCLINE] Allergy (Unknown, Verified 07/17/23 09:36) UNK linezolid [LINEZOLID] Allergy (Unknown, Verified 07/17/23 09:36) UN rifampin [RIFAMPIN] Allergy (Unknown, Verified 07/17/23 09:36) UNK HPI HPI Comments History of Present Illness Details 52 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 She was previously followed by Dr. Trinh. She has elevated TPO antibodies but has remained euthyroid. She remains off levothyroxine at the time. She has a nontoxic MNG and did have FNA biopsy of the L mid pole 1.5 cm nodule 01/12/16, with benign cytology. She had a thyroid US in 2020 that revealed a RUP 1.2 cm nodule. She presented for FNA biopsy of this nodule, but on repeat imaging the nodule was not visualized, thus no FNA biopsy was performed. This also showed significant growth of her L mid pole nodule to 2.2 cm. A total growth in volume of 78%. She was scheduled for FNA biopsy of this, but at that time repeat US was completed by me and this nodule was actually found to be 3 separate nodules, none meeting indication for FNA biopsy. She does complain of chest pressure today that she states has been occurring constantly for the past 1 week. Thyroid US: 07/02/2022 Right Thyroid Lobe: 5.1 x 1.8 x 1.9 cm, volume 9.2 mL. Previously 5.4 x 1.9 x 1.9 cm, volume 10.2 mL. Parenchyma: The gland echotexture is heterogeneous. Thyroid vascularity is increased. Left Thyroid Lobe: 5.1 x 2.0 x 2.2 cm, volume 11.4 mL. Previously 5.1 x 2.0 x 2.1 cm, volume 11.2 mL. Parenchyma: The gland echotexture is heterogeneous. Thyroid vascularity is increased. Isthmus: 0.8 cm in maximum AP dimension. Previously 0.8 cm. Estimated total number of nodules greater than or equal to 1 cm: 2. Sorting Machine Operator nodules are described as follows: 1.? Location: Left inferior. ?? ? Size: 0.9 x 0.5 x 0.8 cm, volume 0.2 mL. ?? ? Previously: 0.8 x 0.8 x 0.6 cm, volume 0.2 mL. ?? ? Nodule characteristics: ?? ? Composition: Solid/almost completely solid (2). ?? ? Echogenicity: Very hypoechoic (3). ?? ? Shape: Not taller than wide (0). ?? ? Margins: Smooth (0). ?? ? Echogenic Foci: None (0).? ACR TI-RADS total points: 5. Previous: 0. ?? ? ACR TI-RADS category: 4. Previous: 1. ? Significant change in size (>/= 20% in 2 dimensions and minimal increase of 2 mm or 50% or greater increase in volume): None. ?? ? Change in features: None. ?? ? Change in ACR TI-RADS risk category: None. 2.? Location: Left mid/inferior. ?? ? Size: 1.1 x 1.0 x 1.2 cm, volume 0.7 mL. ?? ? Previously: 1.1 x 1.1 x 0.7 cm, volume 0.4 mL. ?? ? Nodule characteristics: ?? ? Composition: Mixed cystic and solid (1). ?? ? Echogenicity: Cannot be determined (1). ?? ? Shape: Not taller than wide (0). ?? ? Margins: Smooth (0). ?? ? Echogenic Foci: None (0).? ACR TI-RADS total points: 2. Previous: 0. ?? ? ACR TI-RADS category: 2. Previous: 1. ? Significant change in size (>/= 20% in 2 dimensions and minimal increase of 2 mm or 50% or greater increase in volume): None. ?? ? Change in features: None. ?? ? Change in ACR TI-RADS risk category: None. 3.? Location: Left inferior. ?? ? Size: 1.3 x 1.2 x 1.4 cm, volume 1.1 mL. ?? ? Previously: 1.3 x 1.4 x 0.9 cm, volume 0.9 mL. ?? ? Nodule characteristics: ?? ? Composition: Mixed cystic and solid (1). ?? ? Echogenicity: Cannot be determined (1). ?? ? Shape: Not taller than wide (0). ?? ? Margins: Smooth (0). ?? ? Echogenic Foci: None (0).? ACR TI-RADS total points: 2 Previous: 0 ?? ? ACR TI-RADS category: 2 Previous: 1 ? Significant change in size (>/= 20% in 2 dimensions and minimal increase of 2 mm or 50% or greater increase in volume): None. ?? ? Change in features: None. ?? ? Change in ACR TI-RADS risk category: Not applicable. 4.? Location: Right inferior/mid. ?? ? Size: 0.8 x 0.4 x 0.8 cm, volume 0.1 mL. ?? ? Previously: 0.6 x 0.5 x 0.2 cm, volume 0.04 mL. ?? ? Nodule characteristics: ?? ? Composition: Mixed cystic and solid (1). ?? ? Echogenicity: Cannot be determined (1). ?? ? Shape: Not taller than wide (0). ?? ? Margins: Smooth (0). ?? ? Echogenic Foci: None (0). ? ACR TI-RADS total points: 2. Previous: 0. ?? ? ACR TI-RADS category: 2. Previous: 1. ? Significant change in size (>/= 20% in 2 dimensions and minimal increase of 2 mm or 50% or greater increase in volume): None. ?? ? Change in features: None. ?? ? Change in ACR TI-RADS risk category: Not applicable. 5.? Location: Right superior. ?? ? Size: 0.6 x 0.4 x 0.5 cm, volume 0.1 mL. ?? ? Previously: 0.5 x 0.3 x 0.2 cm, volume 0.02 mL. ?? ? Nodule characteristics: ?? ? Composition: Solid/almost completely solid (2). ?? ? Echogenicity: Isoechoic (1). ?? ? Shape: Not taller than wide (0). ?? ? Margins: Smooth (0). ?? ? Echogenic Foci: None (0).? ACR TI-RADS total points: 3 Previous: 0 ?? ? ACR TI-RADS category: 3 Previous: 1 ? Significant change in size (>/= 20% in 2 dimensions and minimal increase of 2 mm or 50% or greater increase in volume): None. ?? ? Change in features: None. ?? ? Change in ACR TI-RADS risk category: Not applicable. NODES: No lymphadenopathy is seen in the tissue surrounding the thyroid gland. Labs: Laboratory Tests 08/18/21 15:20 25-OH Vitamin D To mina 19.4 TSH 0.62 Free T4 0.93 No obstructive sx PFSH Medical History (Updated 04/09/23 @ 21:53 by Price Grant MD) Pulmonary nodules ILD (interstitial lung disease) Asthma-COPD overlap syndrome Bronchiectasis Chest pain Renal calculi Vitamin D deficiency Multinodular thyroid Shade's disease Surgical History Hx of hernia repair History of laparoscopy Family History Father Diabetes Hypertension Mother Heart disease Hypertension Social History Alcohol intake: never Patient Tobacco Use Status: Never used Tobacco Physical Exam Const Other: Thyroid gland is enlarged in size weighs by 55 g . There are no thyroid nodules palpable Assessment & Plan Assessment & Plan (1) Multinodular thyroid: Code(s): E04.2 - Nontoxic multinodular goiter Plan: This is a 52-year-old female with a history of multinodular goiter FNA biopsy of the L mid pole 1.5 cm nodule 01/12/16, with benign cytology. She had a thyroid US in 2020 that revealed a RUP 1.2 cm nodule. She presented for FNA biopsy of this nodule, but on repeat imaging the nodule was not visualized, thus no FNA biopsy was performed. This also showed significant growth of her L mid pole nodule to 2.2 cm. A total growth in volume of 78%. She was scheduled for FNA biopsy of this, but at that time repeat US was completed by Dr. Lara and this nodule was actually found to be 3 separate nodules, none meeting indication for FNA biopsy. Recent thyroid ultrasound showed no change in the size or characteristics of the nodules. She appears to be clinically biochemically euthyroid. At this point, patient returned to the care of her primary care provider. Perhaps repeat thyroid ultrasound should be done about 1-2 years time if there is any significant change in the size or characteristics of the nodules, she returned back to endocrinology Coding Level of Care Code Est Pt Level 3 (80593) Diagnoses Multinodular thyroid E04.2
[2023-07-17 09:25] VITALS: BP 116/60; PULSE 74; BMI 20.5
== END 2023-07-17 10:50 | disposition home or self-care (01) ==
PROVIDERS: PCP Internal Medicine; Visit Provider Internal Medicine Endocrinology, Diabetes & Metabolism
DX: E04.2 Nontoxic multinodular goiter (principal)
CPT/HCPCS: 99213

== ENCOUNTER → 2023-07-17 09:22 | Outpatient (BNVA) | payer MEDICARE, SELFPAY | PROVIDERS: PCP Internal Medicine; Visit Provider Internal Medicine Endocrinology, Diabetes & Metabolism | DX: E04.2 Nontoxic multinodular goiter (principal) | CPT/HCPCS: 99212 ==

== ENCOUNTER 2023-07-18 13:50 | Outpatient (AMB) | payer MEDICARE, SELFPAY ==
[2023-07-18 14:12] VITALS: PULSE 89; O2SAT 97; BMI 20.5
--- NOTE | 2023-07-18 14:12 | A.OFFVIS_ITS ---
Intake Vital Signs 07/18/23 14:12 Height 5 ft 8 in Weight 134 lb 11.239 oz BMI 20.5 Pulse 89 Pulse Source Pulse Oximeter Pulse Oximetry (%) 97 Oxygen Delivery Method Room Air Intake Visit Reasons: pulm nodules Director Of Outside Sales Required: No Allergies clindamycin [CLINDAMYCIN] Allergy (Severe, Verified 07/18/23 14:14) RASH Sulfa (Sulfonamide Antibiotics) [SULFA (SULFONAMIDE ANTIBIOTICS)] Allergy (Mild, Verified 07/18/23 14:14) NAUSEA & VOMITING doxycycline [DOXYCYCLINE] Allergy (Unknown, Verified 07/18/23 14:14) UNK linezolid [LINEZOLID] Allergy (Unknown, Verified 07/18/23 14:14) UN rifampin [RIFAMPIN] Allergy (Unknown, Verified 07/18/23 14:14) UNK HPI HPI Comments History of Present Illness Details The patient is a 52 year woman with a known history of bronchiectasis, COPD and underlying interstitial lung disease, along with inflammatory arthritis and psoriasis. The patient states that she was premature and did had on developed lungs at the time. She did have respiratory issues throughout her life. However, about 8 years ago she had worsening respiratory symptoms and was found to have some pulmonary nodules. She was followed closely at [facility] for most of her pulmonary care. Her last CT scan of the chest I personally reviewed with the patient. She did have some interstitial changes at the bases but more significantly evidence of bronchiectasis with significant tree-in-bud. Also to note, the patient did have a bronchoscopy back in 2014 at [facility] in biopsies demonstrated chronic inflammation which was nonspecific. Her cultures at that time were positive for Staph aureus. She has responded well to the Symbicort inhaler. Patient does have a nebulizer although she does not using regularly. On examination she does have significant wheezing and chest tightness. 07/18/2023 the patient is here for a pulm onary follow-up visit. The patient still complains of the productive cough chest congestion. She has been staying on top of her nebulized treatments and CPT with the Acapella valve. The patient did have a sputum sent and was positive for both Haemophilus and para Haemophilus influenzae. The patient was treated with antibiotics for that. In addition to that she did have a positive AFB culture for mycobacterium abscesses. The patient did also have a recent CT scan we did review together. She has significant bronchiectasis in addition to treating budding and pulmonary nodules all consistent with her smoldering mycobacterial infection. Therefore I did encourage her to start anti mycobacterial therapy. This is a tough regimen but the patient needs to be started on therapy at this time. She did have blood work done in the blood work at baseline is normal. It is very difficult to start her on a regimen as she does have allergies to antimicrobial therapies and the fact that she is traveling back and forth to [place] for a personal matter. Therefore, we will start her an oral regimen and to be referred to infectious disease. [facility] Medical History (Updated 07/18/23 @ 22:29 by Price Grant MD) Mycobacterium abscessus infection Pulmonary nodules ILD (interstitial lung disease) Asthma-COPD overlap syndrome Bronchiectasis Chest pain Renal calculi Vitamin D deficiency Multinodular thyroid Shade's disease Surgical History Hx of hernia repair History of laparoscopy Family History Father Diabetes Hypertension Mother Heart disease Hypertension Social History Alcohol intake: never Patient Tobacco Use Status: Never used Tobacco Review of Systems Const Denies fever(s) ENT Reports nasal congestion and Reports nasal discharge Card Denies chest pain and Reports dyspnea on exertion Resp Reports chest congestion, Reports cough, Reports dyspnea on exertion and Reports wheezing GI Reports no additional complaints Musc Reports as per HPI, Reports arthralgias and Reports joint swelling Skin/Breast Reports rash Neuro Reports no additional complaints Konrad/Lymph Denies easy bleeding, Denies easy bruising and Denies lymphadenopathy Aller/Immun Reports wheezing Physical Exam Vital Signs: Last Vital Signs Pulse 89 07/18/23 14:12 Pulse Ox 97 07/18/23 14:12 Oxygen Delivery Method Room Air 07/18/23 14:12 BMI result Body Mass Index 20.5 Const General: comfortable HEENT Head: Yes normocephalic Neck Neck: Yes supple Chest Chest palpation & inspection: normal inspection of the chest Resp Effort & Inspection: normal respiratory effort and prolonged expiratory phase Auscultation: rhonchi and diminished lung sounds Cardio Rate: regular rate Rhythm: regular rhythm Heart sounds: S1 normal heart sound present and S2 normal heart sound present GI Palpation (GI): Soft to palpation Skin General skin exam: no rashes or lesions noted Extrem General: Yes no clubbing, cyanosis or edema Results Reviewed Results Reviewed: personally review CT chest with tree in bud, nodules and bronchiectasis; PFTs with mild Obstruction; labs or ok Assessment & Plan Assessment & Plan (1) Mycobacterium abscessus infection: Code(s): A31.8 - Other mycobacterial infections (2) Bronchiectasis: Code(s): J47.9 - Bronchiectasis, uncomplicated Qualifiers: Bronchiectasis type: with acute exacerbation Qualified Code(s): J47.1 - Bronchiectasis with (acute) exacerbation (3) SOB (shortness of breath): Code(s): R06.02 - Shortness of breath (4) Asthma-COPD overlap syndrome: Code(s): J44.89 - Other specified chronic obstructive pulmonary disease (5) ILD (interstitial lung disease): Code(s): J84.9 - Interstitial pulmonary disease, unspecified (6) Pulmonary nodules: Code(s): R91.8 - Other nonspecific abnormal finding of lung field Plan continue symbicort BID continue nebulizer therapy with albuterol followed by hypertonic saline continue CPT with acapella valve. Would benefit from a percussion vest in the near future ID referral start Azithromycin/Rifabutin/Clofazimine bloodwork in 4-6 weeks F/U 6-8 weeks Orders: Orders Erythrocyte Sedimentation Rate Today A31.8 - Other mycobacterial infections Complete Blood Count Auto Diff Today A31.8 - Other mycobacterial infections Basic Metabolic Panel Today A31.8 - Other mycobacterial infections Liver Panel Today A31.8 - Other mycobacterial infections Referrals Infectious Disease Referral A31.8 - Other mycobacterial infections Medications: New azithromycin 500 mg PO DAILY 30 tabs 6RF 30 days rifabutin 300 mg (2 x 150 mg) PO DAILY 60 caps 6RF 30 days [clofazamine] 100 mg PO DAILY 30 ea 6RF 30 days Coding Level of Care Code Est Pt Level 5 (86709) Diagnoses Mycobacterium abscessus infection A31.8 Bronchiectasis with acute exacerbation J47.1 Bronchiectasis type: with acute exacerbation SOB (shortness of breath) R06.02 Asthma-COPD overlap syndrome J44.89 ILD (interstitial lung disease) J84.9 Pulmonary nodules R91.8 Time Spent (min) 60
== END 2023-07-18 14:40 | disposition home or self-care (01) ==
PROVIDERS: PCP Internal Medicine; Visit Provider Hospitalist
DX: R91.8 Other nonspecific abnormal finding of lung field (principal); A31.8 Other mycobacterial infections; J44.89 Other specified chronic obstructive pulmonary disease; J84.9 Interstitial pulmonary disease, unspecified
CPT/HCPCS: 99215

== ENCOUNTER → 2023-07-18 13:50 | Outpatient (BNVA) | payer MEDICARE, SELFPAY | PROVIDERS: PCP Internal Medicine; Visit Provider Hospitalist | DX: R91.8 Other nonspecific abnormal finding of lung field (principal); A31.8 Other mycobacterial infections; J47.1 Bronchiectasis with (acute) exacerbation; R06.02 Shortness of breath; J44.89 Other specified chronic obstructive pulmonary disease; J84.9 Interstitial pulmonary disease, unspecified | CPT/HCPCS: 99212 ==

== ENCOUNTER 2023-09-13 08:59 | Outpatient (REF) | payer MEDICARE, SELFPAY ==
[2023-09-13 09:18] LABS: MANUAL DIFF FLAG NO
[2023-09-13 09:39] LABS: Basophils Absolute Auto 0.1 X10*3/uL (0.0-0.2); Basophils Percent Auto 0.7 % (0-2); Eosinophils Absolute Auto 0.1 X10*3/uL (0.0-0.4); Eosinophils Percent Auto 1.9 % (0-4); Hematocrit 40.7 % (37.0-47.0); Hemoglobin 13.1 g/dl (12.0-16.0); Imm Gran Abs Auto 0.02 X10*3/uL (0.00-0.03); Imm Gran Pct Auto 0.3 % (0.0-0.4); Lymphocytes Absolute Auto 2.2 X10*3/uL (1.2-4.9); Lymphocytes Percent Auto 32.2 % (20-40); Mean Corpuscular HGB Conc 32.2 g/dl (31.0-35.0); Mean Corpuscular Hemoglobin 29.5 pg (27.0-33.0); Mean Corpuscular Volume 91.7 fL (80.0-98.0); Mean Platelet Volume 9.1 fL (9.4-12.3); Monocytes Absolute Auto 0.6 X10*3/uL (0.1-1.2); Monocytes Percent Auto 8.1 % (2-11); Neutrophils Absolute Auto 3.8 x10*3/uL (2.0-8.3); Neutrophils Percent Auto 56.8 % (45-73); Platelet Count 396 X10*3/uL (160-400); Red Blood Count 4.44 X10*6/uL (4.20-5.50); Red Cell Distribution Width 13.2 % (11.0-16.0); White Blood Count 6.8 X10*3/uL (4.8-10.8)
[2023-09-13 09:58] LABS: Alanine Aminotransferase 12 U/L (0-31); Albumin Level 4.1 g/dL (3.5-5.0); Alkaline Phosphatase 98 U/L (39-117); Anion Gap 10 (12-20); Aspartate Amino Transferase 17 U/L (5-31); Bilirubin Total 0.5 mg/dL (0.0-1.0); Blood Urea Nitrogen 13 mg/dL (9-16); Calcium 9.8 mg/dL (8.4-10.2); Carbon Dioxide 27 mmol/L (22-29); Chloride 109 mmol/L (96-108); Cholesterol 205 mg/dL (<200); Estimated Glomerular Filt Rate > 60; Glucose Random 85 mg/dL (60-115); HDL Cholesterol 68 mg/dL (>40); LDL Cholesterol Calculated 125 mg/dL (<100); Sodium 142 mmol/L (135-145); Total Protein 7.4 g/dL (6.5-8.0); Triglycerides 61 mg/dL (<150)
== END 2023-09-13 09:00 | disposition home or self-care (01) ==
LOC: HO.LAB 08:59
PROVIDERS: PCP Internal Medicine; Visit Provider Internal Medicine
DX: E78.00 Pure hypercholesterolemia, unspecified (principal); I10 Essential (primary) hypertension; J47.9 Bronchiectasis, uncomplicated; L40.50 Arthropathic psoriasis, unspecified
CPT/HCPCS: 36415; 80053; 80061; 85025

== ENCOUNTER 2023-09-20 13:41 | Outpatient (AMB) | payer MEDICARE, SELFPAY ==
[2023-09-20 14:08] VITALS: BP 110/62; PULSE 80; O2SAT 98; BMI 20.1
--- NOTE | 2023-09-20 14:08 | A.OFFVIS_ITS ---
Intake Vital Signs 09/20/23 14:08 Height 5 ft 8 in Weight 132 lb BMI 20.1 BP 110/62 Blood Pressure Location Lt brachial Position Sitting Pulse 80 Pulse Source Pulse Oximeter Pulse Oximetry (%) 98 Oxygen Delivery Method Room Air Intake Visit Reasons: pulm nodules Bung Driver Required: No Allergies clindamycin [CLINDAMYCIN] Allergy (Severe, Verified 09/20/23 14:10) RASH Sulfa (Sulfonamide Antibiotics) [SULFA (SULFONAMIDE ANTIBIOTICS)] Allergy (Mild, Verified 09/20/23 14:10) NAUSEA & VOMITING doxycycline [DOXYCYCLINE] Allergy (Unknown, Verified 09/20/23 14:10) UNK linezolid [LINEZOLID] Allergy (Unknown, Verified 09/20/23 14:10) UN rifampin [RIFAMPIN] Allergy (Unknown, Verified 09/20/23 14:10) UNK HPI HPI Comments History of Present Illness Details The patient is a 52 year woman with a known history of bronchiectasis, COPD and underlying interstitial lung disease, along with inflammatory arthritis and psoriasis. The patient states that she was premature and did had on developed lungs at the time. She did have respiratory issues throughout her life. However, about 8 years ago she had worsening respiratory symptoms and was found to have some pulmonary nodules. She was followed closely at [facility] for most of her pulmonary care. Her last CT scan of the chest I personally reviewed with the patient. She did have some interstitial changes at the bases but more significantly evidence of bronchiectasis with significant tree-in-bud. Also to note, the patient did have a bronchoscopy back in 2014 at [facility] in biopsies demonstrated chronic inflammation which was nonspecific. Her cultures at that time were positive for Staph aureus. She has responded well to the Symbicort inhaler. Patient does have a nebulizer although she does not using regularly. On examination she does have significant wheezing and chest tightness. 07/18/2023 the patient is here for a pulm onary follow-up visit. The patient still complains of the productive cough chest congestion. She has been staying on top of her nebulized treatments and CPT with the Acapella valve. The patient did have a sputum sent and was positive for both Haemophilus and para Haemophilus influenzae. The patient was treated with antibiotics for that. In addition to that she did have a positive AFB culture for mycobacterium abscesses. The patient did also have a recent CT scan we did review together. She has significant bronchiectasis in addition to treating budding and pulmonary nodules all consistent with her smoldering mycobacterial infection. Therefore I did encourage her to start anti mycobacterial therapy. This is a tough regimen but the patient needs to be started on therapy at this time. She did have blood work done in the blood work at baseline is normal. It is very difficult to start her on a regimen as she does have allergies to antimicrobial therapies and the fact that she is traveling back and forth to [place] for a personal matter. Therefore, we will start her an oral regimen and to be referred to infectious disease. 09/20/2023 the patient is here for pulmonary follow-up visit. Overall she feels a little better. Her chest congestion is overall. The patient was treated initially with azithromycin rifabutin. There was a 3rd agent not get. However patient had an allergic reaction. Went ahead and stopped the full treatment because of potential resistance. She was evaluated by Infectious Disease. And other sputum culture was sent there will go ahead and send another 1 here. She continues have a productive cough. Moderate severity. She has been using her inhaler therapy with good response. Again, we did look at her CT scan of the chest demonstrating the bronchiectatic changes in the tree-in-bud. We did talk about undergoing a bronchoscopy. At this point she needs to go away in soft some issues in [place]. Therefore when she comes back if we still do not have clear microbiology specimen in regards the mycobacterial disease will go ahead perform a bronchoscopy. The patient is agreeable to this. If her symptoms worsen she will call the office also for an earlier assessment. [facility] Medical History (Updated 07/18/23 @ 22:29 by Price Grant MD) Mycobacterium abscessus infection Pulmonary nodules ILD (interstitial lung disease) Asthma-COPD overlap syndrome Bronchiectasis Chest pain Renal calculi Vitamin D deficiency Multinodular thyroid Shade's disease Surgical History Hx of hernia repair History of laparoscopy Family History Father Diabetes Hypertension Mother Heart disease Hypertension Social History Alcohol intake: never Patient Tobacco Use Status: Never used Tobacco Review of Systems Const Denies fever(s) ENT Reports nasal congestion and Reports nasal discharge Card Denies chest pain and Reports dyspnea on exertion Resp Reports chest congestion, Reports cough, Reports dyspnea on exertion and Reports wheezing GI Reports no additional complaints Musc Reports as per HPI, Reports arthralgias and Reports joint swelling Skin/Breast Reports rash Neuro Reports no additional complaints Konrad/Lymph Denies easy bleeding, Denies easy bruising and Denies lymphadenopathy Aller/Immun Reports wheezing Physical Exam Vital Signs: Last Vital Signs Pulse 80 09/20/23 14:08 BP 110/62 09/20/23 14:08 Pulse Ox 98 09/20/23 14:08 Oxygen Delivery Method Room Air 09/20/23 14:08 BMI result Body Mass Index 20.1 Const General: comfortable HEENT Head: Yes normocephalic Neck Neck: Yes supple Chest Chest palpation & inspection: normal inspection of the chest Resp Effort & Inspection: normal respiratory effort and prolonged expiratory phase Auscultation: no rhonchi and diminished lung sounds Cardio Rate: regular rate Rhythm: regular rhythm Heart sounds: S1 normal heart sound present and S2 normal heart sound present GI Palpation (GI): Soft to palpation Skin General skin exam: no rashes or lesions noted Extrem General: Yes no clubbing, cyanosis or edema Office Procedures Nebulizer Treatment Nebulizer Treatment [id number] RX initial, or Nebulizer Subsequent Treatment Office Meds albuterol sulfate 2.5 mg/3 mL (0.083 %) solution for nebulization Performing Provider: Price Grant MD Performing Location: [facility] Administered by: Virgie Hernandez LPN on 09/20/23 14:37 Dose Route Admin Location Dispensed Lot Number Expiration Date [place] Resource Management Specialist 2.5 mg inhalation 3 mL [id number] 09/28/24 4278-9235-04 MYLAN sodium chloride 3 % for nebulization Performing Provider: Price Grant MD Performing Location: [facility] Administered by: Virgie Hernandez LPN on 09/20/23 14:37 Dose Route Admin Location Dispensed Lot Number Expiration Date NDC Resource Management Specialist 3 mL inhalation 3 mL [id number] 11/28/24 [id number] MYLAN Assessment & Plan Assessment & Plan (1) Mycobacterium abscessus infection: Code(s): A31.8 - Other mycobacterial infections (2) Bronchiectasis: Code(s): J47.9 - Bronchiectasis, uncomplicated Qualifiers: Bronchiectasis type: with acute exacerbation Qualified Code(s): J47.1 - Bronchiectasis with (acute) exacerbation (3) SOB (shortness of breath): Code(s): R06.02 - Shortness of breath (4) Asthma-COPD overlap syndrome: Code(s): J44.89 - Other specified chronic obstructive pulmonary disease (5) ILD (interstitial lung disease): Code(s): J84.9 - Interstitial pulmonary disease, unspecified (6) Pulmonary nodules: Code(s): R91.8 - Other nonspecific abnormal finding of lung field Plan continue symbicort BID continue nebulizer therapy with albuterol followed by hypertonic saline continue CPT with acapella valve. Would benefit from a percussion vest in the near future stopped Azithromycin/Rifabutin due to allergic reaction sputum AFB and GS today F/U 8-12 weeks Orders: Orders Acid-fast Culture + Smear 09/20/23 A31.8 - Other mycobacterial infections Sputum Cult + Gram stain 09/20/23 A31.8 - Other mycobacterial infections AMB Nebulizer Treatment 09/20/23 J44.89 - Other specified chronic obstructive pulmonary disease Medications: New albuterol sulfate 90 mcg/actuation 2 puffs inhalation Q4H PRN 8.5 grams 11RF wheezing Changed From budesonide-formoterol 160-4.5 mcg/actuation inhalation To budesonide-formoterol 160-4.5 mcg/actuation 2 puffs inhalation BID 30 days 10.2 grams 11RF From albuterol sulfate 2.5 mg inhalation Q6H To albuterol sulfate 2.5 mg (3 mL) inhalation BID 180 mL 11RF Coding Level of Care Code Est Pt Level 4 (09698) Diagnoses Mycobacterium abscessus infection A31.8 Bronchiectasis with acute exacerbation J47.1 Bronchiectasis type: with acute exacerbation SOB (shortness of breath) R06.02 Asthma-COPD overlap syndrome J44.89 ILD (interstitial lung disease) J84.9 Pulmonary nodules R91.8 CPT Codes Nebulizer Treatment - Nebulizer Treatment, initial or subsequent: [id number] Nebulizer/MDI RX initial, or Nebulizer Subsequent Treatment ([id number]) Time Spent (min) 18
== END 2023-09-20 15:07 | disposition home or self-care (01) ==
PROVIDERS: PCP Internal Medicine; Visit Provider Hospitalist
DX: A31.8 Other mycobacterial infections (principal); J47.1 Bronchiectasis with (acute) exacerbation; R06.02 Shortness of breath; J44.89 Other specified chronic obstructive pulmonary disease; J84.9 Interstitial pulmonary disease, unspecified; R91.8 Other nonspecific abnormal finding of lung field
CPT/HCPCS: 99214

== ENCOUNTER 2023-09-20 13:41 | Outpatient (REF) | payer MEDICARE, SELFPAY | END 2023-09-20 13:42 | disposition home or self-care (01) | LOC: HO.LNP 13:41 | PROVIDERS: PCP Internal Medicine; Visit Provider Hospitalist | DX: A31.8 Other mycobacterial infections (principal); J44.9 Chronic obstructive pulmonary disease, unspecified; J47.1 Bronchiectasis with (acute) exacerbation; J44.89 Other specified chronic obstructive pulmonary disease; J84.9 Interstitial pulmonary disease, unspecified; R91.8 Other nonspecific abnormal finding of lung field | CPT/HCPCS: 87070; 87077; 87116; 87185; 87205; 87206; 94640; 99212 ==

== ENCOUNTER 2024-02-28 07:49 | Outpatient (REF) | payer MEDICARE, SELFPAY ==
[2024-02-28 10:54] LABS: MANUAL DIFF FLAG NO
[2024-02-28 11:05] LABS: Basophils Absolute Auto 0.1 X10*3/uL (0.0-0.2); Eosinophils Absolute Auto 0.3 X10*3/uL (0.0-0.4); Eosinophils Percent Auto 3.9 % (0-4); Hematocrit 39.4 % (37.0-47.0); Hemoglobin 12.6 g/dl (12.0-16.0); Imm Gran Abs Auto 0.01 X10*3/uL (0.00-0.03); Imm Gran Pct Auto 0.1 % (0.0-0.4); Lymphocytes Absolute Auto 2.1 X10*3/uL (1.2-4.9); Lymphocytes Percent Auto 29.8 % (20-40); Mean Corpuscular Hemoglobin 29.5 pg (27.0-33.0); Mean Corpuscular Volume 92.3 fL (80.0-98.0); Mean Platelet Volume 9.4 fL (9.4-12.3); Monocytes Absolute Auto 0.6 X10*3/uL (0.1-1.2); Neutrophils Absolute Auto 4.1 x10*3/uL (2.0-8.3); Neutrophils Percent Auto 57.2 % (45-73); Platelet Count 398 X10*3/uL (160-400); Red Blood Count 4.27 X10*6/uL (4.20-5.50); Red Cell Distribution Width 12.8 % (11.0-16.0); White Blood Count 7.2 X10*3/uL (4.8-10.8)
[2024-02-28 11:10] LABS: Alanine Aminotransferase 9 U/L (0-31); Alkaline Phosphatase 107 U/L (39-117); Aspartate Amino Transferase 16 U/L (5-31); Bilirubin Direct 0.2 mg/dL (0.0-0.5); Bilirubin Total 0.5 mg/dL (0.0-1.0); Total Protein 7.3 g/dL (6.5-8.0)
[2024-02-28 11:14] LABS: Alanine Aminotransferase 9 U/L (0-31); Alkaline Phosphatase 105 U/L (39-117); Anion Gap 10 (12-20); Aspartate Amino Transferase 15 U/L (5-31); Bilirubin Total 0.6 mg/dL (0.0-1.0); Blood Urea Nitrogen 24 mg/dL (9-16); Calcium 9.8 mg/dL (8.4-10.2); Carbon Dioxide 27 mmol/L (22-29); Chloride 106 mmol/L (96-108); Cholesterol 188 mg/dL (<200); Estimated Glomerular Filt Rate > 60; Glucose Random 85 mg/dL (60-115); HDL Cholesterol 54 mg/dL (>40); LDL Cholesterol Calculated 124 mg/dL (<100); Sodium 139 mmol/L (135-145); Total Protein 7.4 g/dL (6.5-8.0); Triglycerides 51 mg/dL (<150)
[2024-02-28 11:28] LABS: Thyroid Stimulating Hormone 1.51 uIU/mL (0.32-4.0)
== END 2024-02-28 07:50 | disposition home or self-care (01) ==
LOC: HO.10HDL 07:49
PROVIDERS: Internal Medicine; Visit Provider Hospitalist
DX: A31.8 Other mycobacterial infections (principal); F32.5 Major depressive disorder, single episode, in full remission; J32.9 Chronic sinusitis, unspecified; J47.9 Bronchiectasis, uncomplicated; L40.52 Psoriatic arthritis mutilans; R63.4 Abnormal weight loss
CPT/HCPCS: 36415; 80053; 80061; 80076; 82248; 84443; 85025

== ENCOUNTER 2024-03-04 17:27 | Emergency (ER) | payer MEDICARE, SELFPAY ==
--- NOTE | ~2024-03-04 | XR_ITS ---
EXAMINATION: XR CHEST CLINICAL INFORMATION: Chest pain COMPARISON: CT chest 06/04/23 TECHNIQUE: 2 views of the chest were obtained. FINDINGS: The cardiac silhouette is normal. There is mild diffuse bronchial wall thickening. There are scattered areas of tree in bud opacities and small regions of consolidation with bronchiectasis. There are no pleural effusions or pneumothoraces. XR/XR chest 2V IMPRESSION: Bronchial wall thickening and scattered areas of tree in bud opacities and small regions of consolidation. Electronically signed by: Shana Diaz MD 03/04/2024 06:58 PM EDT
--- NOTE | ~2024-03-04 | CT_ITS ---
EXAMINATION: CT CHEST WITH CONTRAST CLINICAL INFORMATION: Prominent swelling right upper anterior rib COMPARISON: 06/04/2023 TECHNIQUE: Multidetector volumetric CT imaging of the chest was obtained after the administration of 85 mL of Omnipaque 350 intravenous contrast without immediate adverse reactions. Axial MIP volume rendering provided. Sagittal and coronal reformatted images were obtained. This CT examination was performed using dose optimization techniques as appropriate, variously including the following: *Automated exposure control *Adjustment of mA and/or kV according to patient size (this includes techniques or standardized protocols for targeted exams where dose is matched to indication/reason for exam; i.e. extremities or head) *Use of iterative reconstruction technique DLP: 185 mGy-cm FINDINGS: LUNGS: Biapical scarring is present. Suspected tracheal diverticulum at the thoracic inlet. There are multifocal regions of clustered and wawy-rc-uri-type nodularity bilaterally favoring an infectious/inflammatory etiology which is overall similar to prior. Segments of bronchiectasis in the right middle lobe and lingula are also redemonstrated. MEDIASTINUM: Few thyroid nodules measuring up to approximately 2.2 cm in craniocaudal dimension on the left. Mildly prominent lymph node anterior to the gissel is redemonstrated. Cardiac size is within normal limits; no pericardial effusion. PLEURA: No pneumothorax or pleural effusion. Lobulated density along the pleura of the posterior left lower lobe with a couple internal calcifications is without significant change from prior. AXILLA: No lymphadenopathy. UPPER ABDOMEN: Unremarkable OSSEOUS STRUCTURES: Unremarkable. CT/CT chest w IV con IMPRESSION: 1. Multifocal regions of clustered and aooo-je-pnq-type nodularity bilaterally favoring an infectious/inflammatory etiology, overall similar to 06/04/2023. Segments of bronchiectasis in the right middle lobe and lingula are also redemonstrated. Sequelae of atypical mycobacterial infection would be a consideration. Reevaluation with 3-6 month follow-up CT would be helpful, as the possibility of a superimposed neoplastic nodule would be difficult to entirely exclude. 2. Few bilateral thyroid nodules, for which correlation with thyroid ultrasound results from 07/15/2023 is recommended. Electronically signed by: Grabiel Kingston MD 03/04/2024 11:48 PM EDT
--- NOTE | 2024-03-04 17:28 | ECG_ITS ---
Test Reason : CHEST PAIN Blood Pressure : / mmHG Vent. Rate : 084 BPM Atrial Rate : 084 BPM P-R Int : 138 ms QRS Dur : 074 ms QT Int : 376 ms P-R-T Axes : 079 025 014 degrees QTc Int : 444 ms Normal sinus rhythm Septal infarct (cited on or before 25-MAY-2017) Abnormal ECG When compared with ECG of 27-AUG-2022 10:27, No significant change was found Referred By: Generic ED Physician Electronically Signed By:NAOMI BAIRD
[2024-03-04 17:44] VITALS: BP 125/73; PULSE 89; RESP 20; TEMP 36.8; O2SAT 97; BMI 20.1
--- NOTE | 2024-03-04 17:44 | ED.CHESTPAIN ---
HPI - Chest Pain General Chief Complaint: Chest Pain Stated Complaint: Chest pain, shoulder pain Time Seen by Provider: 03/04/24 21:35 Source: patient Limitations: language barrier History of Present Illness ED Provider: Carolyne Thompson PA-C HPI narrative: 53-year-old female with history of interstitial lung disease, asthma/COPD overlap syndrome, chronic bronchiectasis, chronic cough, presents with right anterior chest discomfort. Patient states she feels a palpable swelling along 1 of the ribs in the upper anterior right chest. Patient denies trauma, overlying redness or fever. The pain is very focal, it is also worse when she breathes, moves. Denies recent cough or cold symptoms that are new, no shortness a breath from her baseline. Related Data Home Medications ?Medication ?Instructions ?Recorded ?Confirmed betamethasone dipropionate 0.05 % topical 06/09/20 01/10/23 lotion desonide 0.05 % topical ointment topical 06/09/20 01/10/23 duloxetine 60 mg capsule,delayed mg PO 06/09/20 10/31/22 release fluticasone propionate 50 intranasal 06/09/20 01/10/23 mcg/actuation nasal spray,suspension ketoconazole 2 % shampoo topical 06/09/20 01/10/23 montelukast 10 mg tablet 10 mg PO DAILY 06/09/20 01/10/23 amitriptyline 25 mg tablet 25 mg PO 08/24/21 01/10/23 nebulizers 04/09/23 Previous Rx's ?Medication ?Instructions ?Recorded naproxen 500 mg tablet (Naprosyn) 500 mg PO BID #20 tabs 10/10/21 sodium chloride 3 % for 4 ml inhalation BID 30 days #240 mL 04/09/23 nebulization cefpodoxime 200 mg tablet 200 mg PO BID #20 tabs 04/17/23 azithromycin 500 mg tablet 500 mg PO DAILY 30 days #30 tabs 07/18/23 clofazamine 100 mg PO DAILY 30 days #30 ea 07/18/23 rifabutin 150 mg capsule 300 mg (2 x 150 mg) PO DAILY 30 07/18/23 days #60 caps albuterol sulfate 2.5 mg/3 mL 2.5 mg (3 mL) inhalation BID #180 09/20/23 (0.083 %) solution for nebulization mL albuterol sulfate 90 mcg/actuation 2 puff inhalation Q4H PRN wheezing 09/20/23 aerosol inhaler #8.5 grams budesonide-formoterol HFA 160 2 puff inhalation BID 30 days 09/20/23 mcg-4.5 mcg/actuation aerosol #10.2 grams inhaler levofloxacin 500 mg tablet 500 mg PO DAILY 14 days #14 tabs 03/05/24 meloxicam 15 mg tablet 15 mg PO DAILY pain #7 tabs 03/05/24 Allergies Allergy/AdvReac Type Severity Reaction Status Date / Time clindamycin [CLINDAMYCIN] Allergy Severe RASH Verified 03/04/24 17:47 Sulfa (Sulfonamide Allergy Mild NAUSEA & Verified 03/04/24 17:47 Antibiotics) VOMITING [SULFA (SULFONAMIDE ANTIBIOTICS)] doxycycline [DOXYCYCLINE] Allergy Unknown UNK Verified 03/04/24 17:47 linezolid [LINEZOLID] Allergy Unknown UN Verified 03/04/24 17:47 rifampin [RIFAMPIN] Allergy Unknown UNK Verified 03/04/24 17:47 Review of Systems Review of Systems: Yes all other systems are reviewed and are negative Constitutional: Constitutional: Denies fever(s) Cardiovascular: Cardiovascular: Reports chest pain and Denies dyspnea Respiratory: Respiratory: Reports cough, Denies dyspnea and Denies wheezing Allergic/Immunologic: Allergic/Immunologic: Denies wheezing PMFSH Past Medical History Attestation statement: The following information was validated with the patient. Medical History (Updated 03/06/24 @ 00:00 by Leno Sanders) Mycobacterium abscessus infection Pulmonary nodules ILD (interstitial lung disease) Asthma-COPD overlap syndrome Bronchiectasis Chest pain Renal calculi Vitamin D deficiency Multinodular thyroid Shade's disease Surgical History Hx of hernia repair History of laparoscopy Family History Family History Father Diabetes Hypertension Mother Heart disease Hypertension Social History Social History Alcohol intake: never Patient Tobacco Use Status: Never used Tobacco Physical Exam Vital Signs: Vital Signs: Last Vital Signs Temp 98.2 F 03/05/24 01:21 Pulse 75 03/05/24 01:21 Resp 16 03/05/24 01:21 BP 114/73 03/05/24 01:21 Pulse Ox 99 03/05/24 01:21 O2 Del Method Room Air 03/05/24 01:21 BMI result Body Mass Index 20.1 Const: Other: Alert well in appearance Orientation/consciousness: patient oriented x3 Chest: Other: Pain elicited with palpation of right anterior chest over 1 of the ribs. No overlying redness, fluctuance or ecchymosis Resp: Other: Nonlabored respirations, active cough, lungs clear to auscultation no wheezing Skin: Other: Warm dry no rash Neuro: General: patient oriented x3, no focal motor deficits and CN's II-XI intact bilaterally Psych: Other: Calm cooperative Course Course Course Narrative: This is an RME: Additional HPI, ROS, PE not included below will be deferred to primary provider. RME assessment and note performed by: Radha Celaya PA-C This is a [id number]-female, who presents to the ER with complaints of chest pain. She reports that the chest pain radiates into the right arm. Chest pain started last night but worsened today. Recent trauma, injury, or heavy lifting. Plan: Labs, EKG, chest x-ray Medications Administered Discontinued Medications Generic Name Dose Route Start Last Admin Trade Name Freq PRN Reason Stop Dose Admin Iohexol 85 ml 03/04/24 23:15 03/04/24 23:16 Iohexol 350 Mg/Ml 100 Ml Infus..Btl IV 03/04/24 23:16 85 ml ONCE ONE Administration Ketorolac Tromethamine 15 mg 03/05/24 00:40 03/05/24 01:19 Ketorolac Tromethamine 15 Mg/Ml Vial IVPUSH 03/05/24 00:41 15 mg ONCE ONE Administration Medical Decision Making Medical Decision Making MDM Narrative: CLINICAL INFORMATION: Prominent swelling right upper anterior rib COMPARISON: 06/04/2023 53-year-old female with history of interstitial lung disease, asthma/COPD overlap syndrome, chronic bronchiectasis, chronic cough, presents with right anterior chest discomfort. Patient states she feels a palpable swelling along 1 of the ribs in the upper anterior right chest. Patient denies trauma, overlying redness or fever. The pain is very focal, it is also worse when she breathes, moves. Denies recent cough or cold symptoms that are new, no shortness a breath from her baseline. Problem: Interstitial lung disease, History: Per patient I have considered the following differential diagnoses: Granuloma associated with sarcoidosis, cancer, rib fracture, osteomyelitis, ACS Plan: This is an odd presentation. The patient self reports that she has been told she has sarcoidosis. I do not see in her history. There is no trauma to suggest a rib fracture, the region does not look infected, and she does not have a leukocytosis. It would be odd for her to develop a spontaneous osteomyelitis. This could be a granuloma associated with her sarcoidosis. We will obtain a CT scan of the chest. ACS was considered, screening labs including cardiac enzymes, EKG and chest x-ray obtained. This is not consistent with ACS, she is very focal right upper chestwall discomfort. I have independently reviewed the following tests: Labs: No leukocytosis, not anemic, no electrolyte abnormality, troponin negative EKG: Normal sinus rhythm, rate 84, no ischemic changes no ectopy Chest x-ray:ECHNIQUE: 2 views of the chest were obtained. FINDINGS: The cardiac silhouette is normal. There is mild diffuse bronchial wall thickening. There are scattered areas of tree in bud opacities and small regions of consolidation with bronchiectasis. There are no pleural effusions or pneumothoraces. XR/XR chest 2V IMPRESSION: Bronchial wall thickening and scattered areas of tree in bud opacities and small regions of consolidation. Electronically signed by: Shana Diaz MD 03/04/2024 06:58 PM EDT RP TECHNIQUE: Multidetector volumetric CT imaging of the chest was obtained after the administration of 85 mL of Omnipaque 350 intravenous contrast without immediate adverse reactions. Axial MIP volume rendering provided. Sagittal and coronal reformatted images were obtained. This CT examination was performed using dose optimization techniques as appropriate, variously including the following: *Automated exposure control *Adjustment of mA and/or kV according to patient size (this includes techniques or standardized protocols for targeted exams where dose is matched to indication/reason for exam; i.e. extremities or head) *Use of iterative reconstruction technique DLP: 185 mGy-cm FINDINGS: LUNGS: Biapical scarring is present. Suspected tracheal diverticulum at the thoracic inlet. There are multifocal regions of clustered and bzln-mv-[id number]-type nodularity bilaterally favoring an infectious/inflammatory etiology which is overall similar to prior. Segments of bronchiectasis in the right middle lobe and lingula are also redemonstrated. MEDIASTINUM: Few thyroid nodules measuring up to approximately 2.2 cm in craniocaudal dimension on the left. Mildly prominent lymph node anterior to the gissel is redemonstrated. Cardiac size is within normal limits; no pericardial effusion. PLEURA: No pneumothorax or pleural effusion. Lobulated density along the pleura of the posterior left lower lobe with a couple internal calcifications is without significant change from prior. AXILLA: No lymphadenopathy. UPPER ABDOMEN: Unremarkable OSSEOUS STRUCTURES: Unremarkable. CT/CT chest w IV con IMPRESSION: 1. Multifocal regions of clustered and effs-lc-keo-type nodularity bilaterally favoring an infectious/inflammatory etiology, overall similar to 06/04/2023. Segments of bronchiectasis in the right middle lobe and lingula are also redemonstrated. Sequelae of atypical mycobacterial infection would be a consideration. Reevaluation with 3-6 month follow-up CT would be helpful, as the possibility of a superimposed neoplastic nodule would be difficult to entirely exclude. 2. Few bilateral thyroid nodules, for which correlation with thyroid ultrasound results from 07/15/2023 is recommended. Electronically signed by: Grabiel Kingston MD 03/04/2024 11:48 PM EDT Lab Data 03/04/24 18:43 03/04/24 18:43 Labs: Lab Results 03/04/24 Range/Units 18:43 WBC 11.0 H (4.8-10.8) X10*3/uL RBC 4.28 (4.20-5.50) X10*6/uL Hgb 12.9 (12.0-16.0) g/dl Hct 39.5 (37.0-47.0) % MCV 92.3 (80.0-98.0) fL MCH 30.1 (27.0-33.0) pg MCHC 32.7 (31.0-35.0) g/dl RDW 12.8 (11.0-16.0) % Plt Count 415 H (160-400) X10*3/uL MPV 8.9 L (9.4-12.3) fL Immature Gran % (Auto) 0.5 H (0.0-0.4) % Neut % (Auto) 72.8 (45-73) % Lymph % (Auto) 16.6 L (20-40) % Todd % (Auto) 6.1 (2-11) % Eos % (Auto) 3.3 (0-4) % Baso % (Auto) 0.7 (0-2) % Lymph # (Auto) 1.8 (1.2-4.9) X10*3/uL Todd # (Auto) 0.7 (0.1-1.2) X10*3/uL Eos # (Auto) 0.4 (0.0-0.4) X10*3/uL Baso # (Auto) 0.1 (0.0-0.2) X10*3/uL Abs Immat Gran (auto) 0.05 H (0.00-0.03) X10*3/uL Absolute Neuts (auto) 8.0 (2.0-8.3) x10*3/uL Absolute Nucleated RBC 0.000 (0.0-0.012) X10*3/uL Nucleated RBC % (auto) 0.0 (0.0-0.2) /100WBC PT 14.0 H (11.1-13.3) SEC INR 1.2 H (0.9-1.1) APTT 35.3 (26.0-36.8) SEC Sodium 143 (135-145) mmol/L Potassium 3.8 (3.3-5.1) mmol/L Chloride 107 (96-108) mmol/L Carbon Dioxide 27 (22-29) mmol/L Anion Gap 13 (12-20) BUN 17 H (9-16) mg/dL Creatinine 0.77 (0.5-1.4) mg/dL Estim Creat Clear Calc 78.9 Estimated GFR > 60 Random Glucose 121 H (60-115) mg/dL Calcium 9.6 (8.4-10.2) mg/dL Magnesium 2.2 (1.6-2.6) mg/dL Total Bilirubin 0.3 (0.0-1.0) mg/dL Direct Bilirubin 0.1 (0.0-0.5) mg/dL AST 14 (5-31) U/L ALT 10 (0-31) U/L Alkaline Phosphatase 110 (39-117) U/L Troponin I High Sens < 2.7 (<3.5-17.0) ng/L Total Protein 7.6 (6.5-8.0) g/dL Albumin 4.1 (3.5-5.0) g/dL Discharge Plan Discharge Clinical Impression: Chest wall pain Patient Disposition: Home, Self-Care Instructions: Chest Wall Pain (ED) Additional Instructions: All of your labs including cardiac enzymes were normal, there were no concerning changes on your EKG and your chest x-ray revealed chronic changes associated with the bronchiectasis. A CT of the chest was obtained, it was again noted that you have chronic changes. The recommendation is to have a repeat chest CT in 3-6 months. This is something that your primary care provider can order for you. In regard to your chest wall pain take the meloxicam as needed, the pain could be associated with your arthritic conditions. Prescriptions: New meloxicam 15 mg tablet 15 mg PO DAILY Qty: 7 0RF No Action cefpodoxime 200 mg tablet 200 mg PO BID Qty: 20 0RF Rx Instructions: must administer with a meal/food levofloxacin 500 mg tablet 500 mg PO DAILY 14 Days Qty: 14 0RF naproxen [Naprosyn] 500 mg tablet 500 mg PO BID Qty: 20 0RF montelukast 10 mg tablet 10 mg PO DAILY duloxetine 60 mg capsule,delayed release(DR/EC) PO ketoconazole 2 % shampoo topical betamethasone dipropionate 0.05 % lotion topical desonide 0.05 % ointment topical fluticasone propionate 50 mcg/actuation spray,suspension intranasal amitriptyline 25 mg tablet 25 mg PO azithromycin 500 mg tablet 500 mg PO DAILY 30 Days Qty: 30 6RF rifabutin 150 mg capsule 300 mg PO DAILY 30 Days Qty: 60 6RF clofazamine 100 mg PO DAILY 30 Days Qty: 30 6RF (DME) nebulizers Misc See Rx Instructions .ROUTE Rx Instructions: As directed sodium chloride 3 % solution for nebulization 4 ml inhalation BID 30 Days Qty: 240 11RF albuterol sulfate 2.5 mg /3 mL (0.083 %) solution for nebulization 2.5 mg inhalation BID Qty: 180 11RF albuterol sulfate 90 mcg/actuation HFA aerosol inhaler 2 puff inhalation Q4H PRN (Reason: wheezing) Qty: 8.5 11RF budesonide-formoterol 160-4.5 mcg/actuation HFA aerosol inhaler 2 puff inhalation BID 30 Days Qty: 10.2 11RF Interventions: ED Discharge Assessment Last Done: 03/05/24 01:21 Discharge Date/Time: 03/05/24 01:23 Print Language: [place] Citizen
[2024-03-04 18:47] LABS: MANUAL DIFF FLAG NO
[2024-03-04 18:51] LABS: Basophils Absolute Auto 0.1 X10*3/uL (0.0-0.2); Basophils Percent Auto 0.7 % (0-2); Eosinophils Absolute Auto 0.4 X10*3/uL (0.0-0.4); Eosinophils Percent Auto 3.3 % (0-4); Hematocrit 39.5 % (37.0-47.0); Hemoglobin 12.9 g/dl (12.0-16.0); Imm Gran Abs Auto 0.05 X10*3/uL (0.00-0.03); Imm Gran Pct Auto 0.5 % (0.0-0.4); Lymphocytes Absolute Auto 1.8 X10*3/uL (1.2-4.9); Lymphocytes Percent Auto 16.6 % (20-40); Mean Corpuscular HGB Conc 32.7 g/dl (31.0-35.0); Mean Corpuscular Hemoglobin 30.1 pg (27.0-33.0); Mean Corpuscular Volume 92.3 fL (80.0-98.0); Mean Platelet Volume 8.9 fL (9.4-12.3); Monocytes Absolute Auto 0.7 X10*3/uL (0.1-1.2); Monocytes Percent Auto 6.1 % (2-11); Neutrophils Percent Auto 72.8 % (45-73); Platelet Count 415 X10*3/uL (160-400); Red Blood Count 4.28 X10*6/uL (4.20-5.50); Red Cell Distribution Width 12.8 % (11.0-16.0)
[2024-03-04 19:03] LABS: INTERNATIONAL NORM RATIO 1.2 (0.9-1.1)
[2024-03-04 19:05] LABS: Alanine Aminotransferase 10 U/L (0-31); Albumin Level 4.1 g/dL (3.5-5.0); Alkaline Phosphatase 110 U/L (39-117); Anion Gap 13 (12-20); Aspartate Amino Transferase 14 U/L (5-31); Bilirubin Direct 0.1 mg/dL (0.0-0.5); Bilirubin Total 0.3 mg/dL (0.0-1.0); Blood Urea Nitrogen 17 mg/dL (9-16); Calcium 9.6 mg/dL (8.4-10.2); Carbon Dioxide 27 mmol/L (22-29); Chloride 107 mmol/L (96-108); Creatinine Clr Calc Pharmacy 78.9; Estimated Glomerular Filt Rate > 60; Glucose Random 121 mg/dL (60-115); Magnesium 2.2 mg/dL (1.6-2.6); Partial Thromboplastin Time 35.3 SEC (26.0-36.8); Potassium 3.8 mmol/L (3.3-5.1); Sodium 143 mmol/L (135-145); Total Protein 7.6 g/dL (6.5-8.0)
[2024-03-04 19:14] LABS: Troponin-I High Sensitivity < 2.7 ng/L (<3.5-17.0)
[2024-03-04 21:39] VITALS: BP 139/80; PULSE 83; RESP 16; TEMP 36.2; O2SAT 96
[2024-03-04] MEDS: iohexoL 350 MG/ML 100 ML INFUS..BTL 85 ML IV (23:16)
[2024-03-05] MEDS: Ketorolac Tromethamine 15 MG/ML VIAL IVPUSH (01:19)
[2024-03-05 01:21] VITALS: BP 114/73; PULSE 75; RESP 16; TEMP 36.8; O2SAT 99
== END 2024-03-05 01:23 | disposition home or self-care (01) ==
PROVIDERS: Physician Assistant Medical; Emergency Provider Emergency Medicine; PCP Internal Medicine
DX: R07.9 Chest pain, unspecified (principal); J44.89 Other specified chronic obstructive pulmonary disease; Z79.899 Other long term (current) drug therapy
CPT/HCPCS: 36415; 71046; 71260; 80048; 80076; 83735; 84484; 85025; 85610; 85730; 93005; 96374; 99284; J1885; Q9967

== ENCOUNTER 2024-03-05 07:36 | Outpatient (REF) | payer MEDICARE, SELFPAY ==
[2024-03-05 08:52] LABS: Uric Acid 3.5 mg/dL (2.4-5.7)
[2024-03-05 09:14] LABS: Erythrocyte Sedimentation Rate 26 MM/HR (0-20)
== END 2024-03-05 07:37 | disposition home or self-care (01) ==
LOC: HO.LAB 07:36
PROVIDERS: PCP Internal Medicine; Visit Provider Psychiatry & Neurology Neurology
DX: M79.7 Fibromyalgia (principal)
CPT/HCPCS: 36415; 84550; 85652

== ENCOUNTER 2024-03-10 12:55 | Outpatient (AMB) | payer MEDICARE, SELFPAY ==
[2024-03-10 13:07] VITALS: BP 118/60; PULSE 87; O2SAT 98; BMI 20.4
--- NOTE | 2024-03-10 13:07 | A.OFFVIS_ITS ---
Vital Signs 03/10/24 13:07 Height 5 ft 8 in Weight 134 lb 7.712 oz BMI 20.4 BP 118/60 Blood Pressure Location Lt brachial Position Sitting Pulse 87 Pulse Source Pulse Oximeter Pulse Oximetry (%) 98 Oxygen Delivery Method Room Air Intake Visit Reasons: Pulmonary Nodules Follow Up Flight Service Agent Required: No Allergies clindamycin [CLINDAMYCIN] Allergy (Severe, Verified 03/10/24 13:10) RASH Sulfa (Sulfonamide Antibiotics) [SULFA (SULFONAMIDE ANTIBIOTICS)] Allergy (Mild, Verified 03/10/24 13:10) NAUSEA & VOMITING doxycycline [DOXYCYCLINE] Allergy (Unknown, Verified 03/10/24 13:10) UNK linezolid [LINEZOLID] Allergy (Unknown, Verified 03/10/24 13:10) UN rifampin [RIFAMPIN] Allergy (Unknown, Verified 03/10/24 13:10) UNK HPI Comments Details: The patient is a 53 year woman with a known history of bronchiectasis, COPD and underlying interstitial lung disease, along with inflammatory arthritis and psoriasis. The patient states that she was premature and did had on developed lungs at the time. She did have respiratory issues throughout her life. However, about 8 years ago she had worsening respiratory symptoms and was found to have some pulmonary nodules. She was followed closely at [facility] for most of her pulmonary care. Her last CT scan of the chest I personally reviewed with the patient. She did have some interstitial changes at the bases but more significantly evidence of bronchiectasis with significant tree-in-bud. Also to note, the patient did have a bronchoscopy back in 2014 at [facility] in biopsies demonstrated chronic inflammation which was nonspecific. Her cultures at that time were positive for Staph aureus. She has responded well to the Symbicort inhaler. Patient does have a nebulizer although she does not using regularly. On examination she does have significant wheezing and chest tightness. 07/18/2023 the patient is here for a pulmonary follow-up visit. The patient still complains of the productive cough chest congestion. She has been staying on top of her nebulized treatments and CPT with the Acapella valve. The patient did have a sputum sent and was positive for both Haemophilus and para Haemophilus influenzae. The patient was treated with antibiotics for that. In addition to that she did have a positive AFB culture for mycobacterium abscesses. The patient did also have a recent CT scan we did review together. She has significant bronchiectasis in addition to treating budding and pulmonary nodules all consistent with her smoldering mycobacterial infection. Therefore I did encourage her to start anti mycobacterial therapy. This is a tough regimen but the patient needs to be started on therapy at this time. She did have blood work done in the blood work at baseline is normal. It is very difficult to start her on a regimen as she does have allergies to antimicrobial therapies and the fact that she is traveling back and forth to [place] for a personal matter. Therefore, we will start her an oral regimen and to be referred to infectious disease. 09/20/2023 the patient is here for pulmonary follow-up visit. Overall she feels a little better. Her chest congestion is overall. The patient was treated initially with azithromycin rifabutin. There was a 3rd agent not get. However patient had an allergic reaction. Went ahead and stopped the full treatment because of potential resistance. She was evaluated by Infectious Disease. And other sputum culture was sent there will go ahead and send another 1 here. She continues have a productive cough. Moderate severity. She has been using her inhaler therapy with good response. Again, we did look at her CT scan of the chest demonstrating the bronchiectatic changes in the tree-in-bud. We did talk about undergoing a bronchoscopy. At this point she needs to go away in soft some issues in [place]. Therefore when she comes back if we still do not have clear microbiology specimen in regards the mycobacterial disease will go ahead perform a bronchoscopy. The patient is agreeable to this. If her symptoms worsen she will call the office also for an earlier assessment. [facility] Medical History (Updated 03/10/24 @ 13:37 by Price Grant MD) Pseudomonal pneumonia Mycobacterium abscessus infection Pulmonary nodules ILD (interstitial lung disease) Asthma-COPD overlap syndrome Bronchiectasis Chest pain Renal calculi Vitamin D deficiency Multinodular thyroid Shade's disease Surgical History Hx of hernia repair History of laparoscopy Family History Father Diabetes Hypertension Mother Heart disease Hypertension Social History Alcohol intake: never Patient Tobacco Use Status: Never used Tobacco Review of Systems Const Denies fever(s) ENT Reports nasal congestion and Reports nasal discharge Card Denies chest pain and Reports dyspnea on exertion Resp Reports chest congestion, Reports cough, Reports dyspnea on exertion and Reports wheezing GI Reports no additional complaints Musc Reports as per HPI, Reports arthralgias and Reports joint swelling Skin/Breast Reports rash Neuro Reports no additional complaints Konrad/Lymph Denies easy bleeding, Denies easy bruising and Denies lymphadenopathy Aller/Immun Reports wheezing Physical Exam Vital Signs: Last Vital Signs Pulse 87 03/10/24 13:07 BP 118/60 03/10/24 13:07 Pulse Ox 98 03/10/24 13:07 Oxygen Delivery Method Room Air 03/10/24 13:07 BMI result Body Mass Index 20.4 Const General: comfortable HEENT Head: Yes normocephalic Neck Neck: Yes supple Chest Chest palpation & inspection: normal inspection of the chest Resp Effort & Inspection: normal respiratory effort and prolonged expiratory phase Auscultation: rhonchi and diminished lung sounds Cardio Rate: regular rate Rhythm: regular rhythm Heart sounds: S1 normal heart sound present and S2 normal heart sound present GI Palpation (GI): Soft to palpation Skin General skin exam: no rashes or lesions noted Extrem General: Yes no clubbing, cyanosis or edema Assessment & Plan Assessment & Plan (1) Mycobacterium abscessus infection: Code(s): A31.8 - Other mycobacterial infections Category: Medical (2) Bronchiectasis: Code(s): J47.9 - Bronchiectasis, uncomplicated Category: Medical Qualifiers: Bronchiectasis type: with acute exacerbation Qualified Code(s): J47.1 - Bronchiectasis with (acute) exacerbation (3) SOB (shortness of breath): Code(s): R06.02 - Shortness of breath Category: Medical (4) Asthma-COPD overlap syndrome: Code(s): J44.89 - Other specified chronic obstructive pulmonary disease Category: Medical (5) ILD (interstitial lung disease): Code(s): J84.9 - Interstitial pulmonary disease, unspecified Category: Medical (6) Pulmonary nodules: Code(s): R91.8 - Other nonspecific abnormal finding of lung field Category: Medical (7) Pseudomonal pneumonia: Code(s): J15.1 - Pneumonia due to Pseudomonas Category: Medical Plan stop symbicort BID start Breztri EVITA as needed complete Levaquin start inhaled Toro BID x 28 days on, 28 days off continue nebulizer therapy with albuterol followed by hypertonic saline continue CPT with acapella valve. Would benefit from a percussion vest in the near future stopped Azithromycin/Rifabutin due to allergic reaction continue singulair F/U 3-4 months Medications: New tobramycin in 0.225 % NaCl 300 mg/5 mL (Toro) separate doses by at least 6 hours 300 mg (5 mL) inhalation BID 28 days 280 mL 0RF prednisone PO daily; Take 6 tabs daily x 3 days, then 5 tabs x 3 days, then 4 tabs x 3 days, then 3 tabs x 3 days, then 2 tabs daily x 3 days, then 1 tab x 3 days to complete. 63 tabs 0RF 18 days [id number]-rtlkrayfkj 160-9-4.8 mcg/actuation (Breztri Aerosphere) 2 inhalations inhalation BID 3 ea 3RF 90 days tobramycin in 0.225 % NaCl 300 mg/5 mL (Toro) separate doses by at least 6 hours 300 mg (5 mL) inhalation BID 28 days 280 mL 6RF J15.1 - Pneumonia due to Pseudomonas, J47.1 - Bronchiectasis with (acute) exacerbation Changed From albuterol sulfate 2.5 mg (3 mL) inhalation BID 180 mL 11RF To albuterol sulfate 2.5 mg (3 mL) inhalation QID 360 mL 11RF From montelukast 10 mg PO DAILY To montelukast 10 mg PO DAILY 90 tabs 3RF 90 days Refilled budesonide-formoterol 160-4.5 mcg/actuation 2 puffs inhalation BID 10.2 grams 11RF 30 days albuterol sulfate 90 mcg/actuation 2 puffs inhalation Q4H PRN 8.5 grams 11RF wheezing Coding Level of Care Code Est Pt Level 4 (40252) Complex EM visit Add On G2211 Diagnoses Mycobacterium abscessus infection A31.8 Bronchiectasis with acute exacerbation J47.1 Bronchiectasis type: with acute exacerbation SOB (shortness of breath) R06.02 Asthma-COPD overlap syndrome J44.89 ILD (interstitial lung disease) J84.9 Pulmonary nodules R91.8 Pseudomonal pneumonia J15.1 Time Spent (min) 17
== END 2024-03-10 13:33 | disposition home or self-care (01) ==
PROVIDERS: PCP Internal Medicine; Visit Provider Hospitalist
DX: A31.8 Other mycobacterial infections (principal); J47.1 Bronchiectasis with (acute) exacerbation; R06.02 Shortness of breath; J44.89 Other specified chronic obstructive pulmonary disease; J84.9 Interstitial pulmonary disease, unspecified; R91.8 Other nonspecific abnormal finding of lung field; J15.1 Pneumonia due to Pseudomonas
CPT/HCPCS: 99214; G2211

== ENCOUNTER → 2024-03-10 12:55 | Outpatient (BNVA) | payer MEDICARE, SELFPAY | PROVIDERS: PCP Internal Medicine; Visit Provider Hospitalist | DX: J47.1 Bronchiectasis with (acute) exacerbation (principal); J44.89 Other specified chronic obstructive pulmonary disease; J84.9 Interstitial pulmonary disease, unspecified; J15.1 Pneumonia due to Pseudomonas; R91.8 Other nonspecific abnormal finding of lung field; R06.02 Shortness of breath; A31.8 Other mycobacterial infections | CPT/HCPCS: 99212 ==

== ENCOUNTER 2024-06-04 11:09 | Outpatient (REF) | payer MEDICARE, SELFPAY ==
[2024-06-04 12:42] LABS: Cholesterol 202 mg/dL (<200); HDL Cholesterol 61 mg/dL (>40); LDL Cholesterol Calculated 129 mg/dL (<100); Triglycerides 61 mg/dL (<150)
[2024-06-04 13:01] LABS: Ferritin 29 ng/mL (10-250); Thyroid Stimulating Hormone 0.62 uIU/mL (0.32-4.0)
== END 2024-06-04 11:10 | disposition home or self-care (01) ==
LOC: HO.LAB 11:09
PROVIDERS: PCP Internal Medicine; Visit Provider Internal Medicine
DX: E04.2 Nontoxic multinodular goiter (principal); E78.00 Pure hypercholesterolemia, unspecified; G47.61 Periodic limb movement disorder; J47.9 Bronchiectasis, uncomplicated; L40.50 Arthropathic psoriasis, unspecified; M79.7 Fibromyalgia
CPT/HCPCS: 36415; 80061; 82306; 82728; 84443; 99212

== ENCOUNTER 2024-06-04 12:44 | Outpatient (AMB) | payer MEDICARE, SELFPAY ==
--- NOTE | 2024-06-04 13:04 | A.OFFVIS_ITS ---
Vital Signs 06/04/24 13:05 Height 5 ft 8 in Weight 136 lb 10.986 oz BMI 20.8 BP 116/70 Blood Pressure Location Rt brachial Position Sitting Pulse 74 Pulse Source Pulse Oximeter Pulse Oximetry (%) 96 Oxygen Delivery Method Room Air Intake Visit Reasons: Pulmonary Nodules Allergies clindamycin [CLINDAMYCIN] Allergy (Severe, Verified 03/10/24 13:10) RASH Sulfa (Sulfonamide Antibiotics) [SULFA (SULFONAMIDE ANTIBIOTICS)] Allergy (Mild, Verified 03/10/24 13:10) NAUSEA & VOMITING doxycycline [DOXYCYCLINE] Allergy (Unknown, Verified 03/10/24 13:10) UNK linezolid [LINEZOLID] Allergy (Unknown, Verified 03/10/24 13:10) UN rifampin [RIFAMPIN] Allergy (Unknown, Verified 03/10/24 13:10) UNK HPI Comments Details: The patient is a 53 year woman with a known history of bronchiectasis, COPD and underlying interstitial lung disease, along with inflammatory arthritis and psoriasis. The patient states that she was premature and did had on developed lungs at the time. She did have respiratory issues throughout her life. However, about 8 years ago she had worsening respiratory symptoms and was found to have some pulmonary nodules. She was followed closely at [facility] for most of her pulmonary care. Her last CT scan of the chest I personally reviewed with the patient. She did have some interstitial changes at the bases but more significantly evidence of bronchiectasis with significant tree-in-bud. Also to note, the patient did have a bronchoscopy back in 2014 at [facility] in biopsies demonstrated chronic inflammation which was nonspecific. Her cultures at that time were positive for Staph aureus. She has responded well to the Symbicort inhaler. Patient does have a nebulizer although she does not using regularly. On examination she does have significant wheezing and chest tightness. 07/18/2023 the patient is here for a pulmonary follow-up visit. The patient still complains of the productive cough chest congestion. She has been staying on top of her nebulized treatments and CPT with the Acapella valve. The patient did have a sputum sent and was positive for both Haemophilus and para Haemophilus influenzae. The patient was treated with antibiotics for that. In addition to that she did have a positive AFB culture for mycobacterium abscesses. The patient did also have a recent CT scan we did review together. She has significant bronchiectasis in addition to treating budding and pulmonary nodules all consistent with her smoldering mycobacterial infection. Therefore I did encourage her to start anti mycobacterial therapy. This is a tough regimen but the patient needs to be started on therapy at this time. She did have blood work done in the blood work at baseline is normal. It is very difficult to start her on a regimen as she does have allergies to antimicrobial therapies and the fact that she is traveling back and forth to [place] for a personal matter. Therefore, we will start her an oral regimen and to be referred to infectious disease. 09/20/2023 the patient is here for pulmonary follow-up visit. Overall she feels a little better. Her chest congestion is overall. The patient was treated initially with azithromycin rifabutin. There was a 3rd agent not get. However patient had an allergic reaction. Went ahead and stopped the full treatment because of potential resistance. She was evaluated by Infectious Disease. And other sputum culture was sent there will go ahead and send another 1 here. She continues have a productive cough. Moderate severity. She has been using her inhaler therapy with good response. Again, we did look at her CT scan of the chest demonstrating the bronchiectatic changes in the tree-in-bud. We did talk about undergoing a bronchoscopy. At this point she needs to go away in soft some issues in [place]. Therefore when she comes back if we still do not have clear microbiology specimen in regards the mycobacterial disease will go ahead perform a bronchoscopy. The patient is agreeable to this. If her symptoms worsen she will call the office also for an earlier assessment. 06/04/2024 the patient is here for a pulmonary follow-up visit. The patient overall feels okay. She was actually responding very well to the inhaled tobramycin. Then she developed a rash. She has started putting cortical steroid cream on it. Then antifungal cream. She did have a picture that did look at it. Appears to be more consistent with tinea infection. Therefore explained to her that the use of the cortical steroid cream was probably making it worse. Therefore based on the fact that she felt very good on the inhaled tobramycin I do believe that we she restarted. I will send another script to the pharmacy. Also send of the antifungal cream that she can apply if the areas of getting irritated. If however the rash gets worse even with the antifungal cream then she is to call the office in hold the medicine. In addition to that the patient needs to be performing the chest PT therapy. We did look at her CT scan of the chest that she had recently appears to be at least stable with the bronchiectatic changes the tree-in-bud in the pulmonary nodules. Does not appear to be getting any worse which is reassuring. [facility] Medical History (Updated 06/04/24 @ 21:08 by Price Grant MD) Pseudomonal pneumonia Mycobacterium abscessus infection Pulmonary nodules ILD (interstitial lung disease) Asthma-COPD overlap syndrome Bronchiectasis Chest pain Renal calculi Vitamin D deficiency Multinodular thyroid Shade's disease Surgical History Hx of hernia repair History of laparoscopy Family History Father Diabetes Hypertension Mother Heart disease Hypertension Social History Alcohol intake: never Patient Tobacco Use Status: Never used Tobacco Review of Systems Const Denies fever(s) ENT Reports nasal congestion and Reports nasal discharge Card Denies chest pain and Reports dyspnea on exertion Resp Reports chest congestion, Reports cough, Reports dyspnea on exertion and Reports wheezing GI Reports no additional complaints Musc Reports as per HPI, Reports arthralgias and Reports joint swelling Skin/Breast Reports rash Neuro Reports no additional complaints Konrad/Lymph Denies easy bleeding, Denies easy bruising and Denies lymphadenopathy Aller/Immun Reports wheezing Physical Exam Vital Signs: Last Vital Signs Pulse 74 06/04/24 13:05 BP 116/70 06/04/24 13:05 Pulse Ox 96 06/04/24 13:05 Oxygen Delivery Method Room Air 06/04/24 13:05 BMI result Body Mass Index 20.8 Const General: comfortable HEENT Head: Yes normocephalic Neck Neck: Yes supple Chest Chest palpation & inspection: normal inspection of the chest Resp Effort & Inspection: normal respiratory effort and prolonged expiratory phase Auscultation: rhonchi and diminished lung sounds Cardio Rate: regular rate Rhythm: regular rhythm Heart sounds: S1 normal heart sound present and S2 normal heart sound present GI Palpation (GI): Soft to palpation Skin General skin exam: no rashes or lesions noted Extrem General: Yes no clubbing, cyanosis or edema Assessment & Plan Assessment & Plan (1) Mycobacterium abscessus infection: Code(s): A31.8 - Other mycobacterial infections Category: Medical (2) Bronchiectasis: Code(s): J47.9 - Bronchiectasis, uncomplicated Category: Medical Qualifiers: Bronchiectasis type: with acute exacerbation Qualified Code(s): J47.1 - Bronchiectasis with (acute) exacerbation (3) SOB (shortness of breath): Code(s): R06.02 - Shortness of breath Category: Medical (4) Asthma-COPD overlap syndrome: Code(s): J44.89 - Other specified chronic obstructive pulmonary disease Category: Medical (5) ILD (interstitial lung disease): Code(s): J84.9 - Interstitial pulmonary disease, unspecified Category: Medical (6) Pulmonary nodules: Code(s): R91.8 - Other nonspecific abnormal finding of lung field Category: Medical (7) Pseudomonal pneumonia: Code(s): J15.1 - Pneumonia due to Pseudomonas Category: Medical Qualifiers: Laterality: unspecified laterality Lung location: unspecified part of lung Qualified Code(s): J15.1 - Pneumonia due to Pseudomonas Plan continue Breztri EVITA as needed restart inhaled Toro BID x 28 days on, 28 days off, monitor for rash continue nebulizer therapy with albuterol followed by hypertonic saline continue CPT with acapella valve. Would benefit from a percussion vest in the near future stopped Azithromycin/Rifabutin due to allergic reaction continue singulair F/U 3-4 months Medications: New prednisone PO daily; Take 2 tabs daily x 5 days, then 1 tablet daily x 5 days 15 tabs 0RF 10 days clotrimazole 1% 1 appl topical BID 30 grams 3RF 4 weeks Refilled azithromycin 500 mg PO DAILY 30 tabs 11RF 30 days Coding Level of Care Code Est Pt Level 4 (29564) Complex EM visit Add On G2211 Diagnoses Mycobacterium abscessus infection A31.8 Bronchiectasis with acute exacerbation J47.1 Bronchiectasis type: with acute exacerbation SOB (shortness of breath) R06.02 Asthma-COPD overlap syndrome J44.89 ILD (interstitial lung disease) J84.9 Pulmonary nodules R91.8 Pneumonia due to Pseudomonas species, unspecified laterality, unspecified part of lung J15.1 Laterality: unspecified laterality Lung location: unspecified part of lung Time Spent (min) 17
[2024-06-04 13:05] VITALS: BP 116/70; PULSE 74; O2SAT 96; BMI 20.8
== END 2024-06-04 13:38 | disposition home or self-care (01) ==
PROVIDERS: PCP Internal Medicine; Visit Provider Hospitalist
DX: A31.8 Other mycobacterial infections (principal); J47.1 Bronchiectasis with (acute) exacerbation; R06.02 Shortness of breath; J44.89 Other specified chronic obstructive pulmonary disease; J84.9 Interstitial pulmonary disease, unspecified; R91.8 Other nonspecific abnormal finding of lung field; J15.1 Pneumonia due to Pseudomonas
CPT/HCPCS: 99214; G2211

== ENCOUNTER 2024-06-08 13:36 | Outpatient (REF) | payer MEDICARE, SELFPAY ==
--- NOTE | ~2024-06-08 | MM_ITS ---
EXAMINATION: MM SCREENING DIGITAL BREAST TOMOSYNTHESIS, BILATERAL CLINICAL INFORMATION: Screening. Asymptomatic. COMPARISON: Mammography: Comparison is made with available priors TECHNIQUE: Digital breast mammography with tomosynthesis is performed in both the craniocaudal and mediolateral oblique views along with computer-aided detection (CAD). FINDINGS: There are scattered areas of fibroglandular density (ACR BI-RADS breast composition Category b). There are no significant masses, abnormal calcifications, or other abnormalities. MM/MM tomosynthesis screening BI IMPRESSION: No mammographic evidence of malignancy. ASSESSMENT: BI-RADS BI-RADS 1 - Negative RECOMMENDATION: Routine annual mammography screening. 1 year F/U This examination should not preclude the clinical evaluation of a suspicious palpable abnormality. This patient's information was entered into a reminder system with a target due date for their next mammogram. Electronically signed by: Stephanie Medley DO 06/12/2024 05:40 PM KRISSY
== END 2024-06-08 13:37 | disposition home or self-care (01) ==
LOC: HO.MAMMO 13:36
PROVIDERS: PCP Internal Medicine; Visit Provider Internal Medicine
DX: Z12.31 Encounter for screening mammogram for malignant neoplasm of breast (principal)
CPT/HCPCS: 77063; 77067

== ENCOUNTER → 2024-06-08 14:30 | Outpatient (BNV) | payer MEDICARE, SELFPAY | PROVIDERS: PCP Internal Medicine; Visit Provider Internal Medicine | DX: Z12.31 Encounter for screening mammogram for malignant neoplasm of breast (principal) | CPT/HCPCS: 77063; 77067 ==

== ENCOUNTER 2024-11-09 10:54 | Outpatient (REF) | payer MEDICARE, SELFPAY ==
--- OUTSIDE RECORDS SUMMARY | 2024-11-09 11:40 | XMS_ITS | Clinical Summary ---
Author Organization [facility] Address [address] [place] [address] Care Team Providers Care Radar Air Traffic Controller Name Role Phone Unavailable Primary Care Provider Unavailabl e Source Comments PLEASE NOTE, if this patient is a minor, it may be UNLAWFUL to discuss sensitive information that is contained in these records (such as FAMILY PLANNING, MENTAL HEALTH or SUBSTANCE ABUSE) with the minor patient's parent or other person without the patient's specific authorization.[facility] Immunizations Immunization Administration Dates Next Due Moderna COVID-19 Vaccine, re d cap blue label, 12+ Primary Series 11/09/2020,10/12/2020 Social History Tobacco Use Types Packs/Day Years Used Date Smoking Tobacco: Never Assessed Social Connections Answer Date Recorded Social Connections and Isolation 0 11/29/2023 Financial Resource Strain Answer Date R ecorded Financial Resource Strain 0 2023 Stress Answer Date Recorded Stress 0 11/29/2023 Physical Activity Answer Date Recorded Physical Activity 0 11/29/2023 Food Insecurity Answer Date Recorded Food 0 11/29/2023 Transportation Needs Answer Date Record ed Transportation 0 11/29/2023 Housing Stability Answer Date Recorded Housing 0 11/29/2023 Safety and Environment Answer Date Randy rded Safety 0 11/29/2023 Utilities Answer Date Recorded Utilities 0 11/29/2023 Employment Answer Date Recorded Employment 0 11/29/2023 Comments Unknown Sex and Gender Information Value Date Recorded Sex Assigned at Not on file Legal Sex Female 12:50 PM PDT Gender Identity Not on file Sexual Orientation Not on file Plan of Treatment Health Maintenance Due Date Last Done Comments Anxiety Screening 1969 Diabetes Screening 1969 HPV Screening 1969 Hepatitis C Screening 1969 Lipid Screening 1969 Pap + HPV 1969 Tobacco Screening 1969 HIV Screening 1984 Hypertension Screening (#1) 12/08/1987 Medicare Annual Wellness Visit 12/08/1987 Imm-DTaP/Tdap/Td (1 - Tdap) 1988 Imm-Hepatitis B (1 of 3 - 19 + 3-dose series) 1988 Cervical Cancer Screening 1990 Pap Smear 1990 Breast Cancer Screening (Mammogram) 2009 CT Colonography 2014 Colonoscopy 2014 Colorectal Cancer Screening 2014 FIT/gFOBT 2014 Fecal DNA 2014 Flexible Sigmoidoscopy 2014 Imm-Zoster, Recombinant (1 of 2) 12/08/2019 [id number] ( season) 2024 021, 10/12/2020 Imm-Influenza (#1) 2024 05/20/2020, 07/22/2019 Alcohol and Drug Screen 07/01/2024 Depression Annual Screen 07/01/2024 Cervical Ablation/Cold-Knife Conization Discontinued Cervical Cryotherapy Discontinued Colposcopy Discontinued Endometrial Biopsy Discontinued Excision/Leep Discontinued HPV Genotyping Discontinued Vaginal Pap Discontinued Vulvoscopy Discontinued Insurance [place]
[2024-11-09 12:22] LABS: Uric Acid 3.6 mg/dL (2.4-5.7)
[2024-11-09 12:24] LABS: Erythrocyte Sedimentation Rate 25 MM/HR (0-20)
== END 2024-11-09 10:55 | disposition home or self-care (01) ==
LOC: HO.LAB 10:54
PROVIDERS: PCP Internal Medicine; Visit Provider Registered Nurse
DX: M10.9 Gout, unspecified (principal)
CPT/HCPCS: 36415; 84550; 85652

== ENCOUNTER 2025-02-08 10:52 | Outpatient (AMB) | payer MEDICARE, SELFPAY ==
--- NOTE | 2025-02-08 11:01 | A.OFFVIS_ITS ---
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 Name: #[id number] Accompanied by: Spouse Allergies clindamycin (CLINDAMYCIN) Allergy (Severe, Verified 02/08/25 11:01) RASH Sulfa (Sulfonamide Antibiotics) (SULFA (SULFONAMIDE ANTIBIOTICS)) Allergy (Mild, Verified 02/08/25 11:01) NAUSEA & VOMITING doxycycline (DOXYCYCLINE) Allergy (Unknown, Verified 02/08/25 11:01) UNK linezolid (LINEZOLID) Allergy (Unknown, Verified 02/08/25 11:01) UN rifampin (RIFAMPIN) Allergy (Unknown, Verified 02/08/25 11:01) UNK Medication List - Last Reconciled 02/08/25 by Kathe Lynn CNP albuterol sulfate 2.5 mg (3 mL) inhalation QID albuterol sulfate 90 mcg/actuation 2 puffs inhalation Q4H PRN amitriptyline 50 mg PO BEDTIME azithromycin 500 mg PO DAILY 30 days betamethasone dipropionate 0.05% topical budesonide-formoterol 160-4.5 mcg/actuation 2 puffs inhalation BID 30 days ciefuxvesp-ulolabkq-tohndpbrjr 160-9-4.8 mcg/actuation (Breztri Aerosphere) 2 inhalations inhalation BID 90 days cefpodoxime 200 mg PO BID [clofazamine 100 mg PO DAILY 30 days] clotrimazole 1% 1 appl topical BID 4 weeks desonide 0.05% topical diphenhydramine HCl (Benadryl Allergy) 25 mg PO TID PRN 10 days duloxetine mg PO fluticasone propionate 50 mcg/actuation intranasal gabapentin 400 mg PO BEDTIME ketoconazole 2% topical levofloxacin 500 mg PO DAILY 14 days meloxicam 15 mg PO DAILY montelukast 10 mg PO DAILY 90 days naproxen (Naprosyn) 500 mg PO BID nebulizers As directed prednisone PO daily; Take 6 tabs daily x 3 days, then 5 tabs x 3 days, then 4 tabs x 3 days, then 3 tabs x 3 days, then 2 tabs daily x 3 days, then 1 tab x 3 days to complete. 18 days prednisone PO daily; Take 2 tabs daily x 5 days, then 1 tablet daily x 5 days 10 days rifabutin 300 mg (2 x 150 mg) PO DAILY 30 days sodium chloride 3% 4 mL inhalation BID 30 days tobramycin in 0.225 % NaCl 300 mg/5 mL (Toro) 300 mg (5 mL) inhalation BID 28 days HPI Comments Details: 54-year-old woman with depression, hypothyroidism, COPD, psoriasis, arthritis, and fibromyalgia type of clinical syndrome. She was doing okay. Increased dose of gabapentin helped with pain some. Pain was all over and to whole body. It could be in neck, shoulders, arms, and hands.?Sleep was up and down, some days better than other because of pain. Swelling in hands was not bad recently. [facility] Medical History (Updated 02/08/25 @ 11:14 by Kathe Lynn [facility]) Gout White matter disease Psoriasis Migraine Insomnia RLS (restless legs syndrome) Depression Fibromyalgia Pseudomonal pneumonia Mycobacterium abscessus infection Pulmonary nodules ILD (interstitial lung disease) Asthma-COPD overlap syndrome Bronchiectasis Chest pain Renal calculi Vitamin D deficiency Multinodular thyroid Shade's disease Surgical History Hx of hernia repair History of laparoscopy Family History Father Diabetes Hypertension Mother Heart disease Hypertension Social History Alcohol intake: never Patient Tobacco Use Status: Never used Tobacco Review of Systems Const Denies chills, Denies daytime sleepiness, Reports difficulty sleeping, Denies fatigue, Denies fever(s), Denies frequent falls, Reports headache(s), Denies increased appetite, Denies poor appetite, Denies snoring, Denies weakness, Denies weight gain and Denies weight loss Eyes Denies loss of vision ENT Denies vertigo, Denies dizziness and Reports headache(s) Card Denies chest pain at rest, Denies chest pain with activity, Denies syncope, Denies leg edema and Denies palpitations Resp Denies snoring GI Denies constipation, Denies heartburn, Denies diarrhea and Denies nausea Denies urinary frequency, Denies urinary incontinence and Denies urinary urgency Musc Denies abnormal gait, Reports numbness and Reports tingling Skin/Breast Denies dry skin and Denies rash Neuro Denies abnormal gait, Denies vertigo, Denies dizziness, Denies syncope, Denies frequent falls, Reports headache(s), Denies lack of coordination, Denies loss of vision, Denies memory loss, Reports numbness, Denies restless legs, Denies seizure-like activity, Reports tingling, Denies paresthesias, Denies tremor(s) and Denies weakness Psych Denies anxiety, Denies depression, Denies auditory hallucinations, Denies memory loss, Denies visual hallucinations and Denies suicidal ideation Endo Denies fatigue and Denies palpitations Physical Exam Const Other: General Appearance:? normal, in no acute distress. Skin:? no rashes, no significant birthmarks. Heart:? S1, S2 normal, no murmurs. Lungs:? clear anteriorly and posteriorly. Extremities:? no edema. Psych:? alert, oriented, cognitive function intact, cooperative with exam. Neuro Other: Mental Status:?Normal attention, orientation, memory and flat affect.? Cranial Nerves:?Pupils are equal, round and reactive to light. External occular muscles are intact. Visual brennan are full. Face is symmetrical. Facial sensations are normal. Tongue is midline. Palate elevates symmetrically. Shoulder shrugging is normal. Hearing to bedside conversation is normal. Sensory Exam:?....? Coordination:?No ataxia,?no titubation.? Gait Exam: Within normal limits. Extrapyramidal System:?No tremor, rigidity with normal facial expressions.? Pronator Drift:?Not present.? Involuntary Movements:?No tremors seen.? Speech:?Normal.? Results Reviewed Results Reviewed: Laboratory Tests 11/09/24 11:04 ESR 25 H Uric Acid 3.6 MRI brain WO at [facility] in November 2017: numerous b/l supratentorial small WM hyperintensities w/o enhancement, b/l max sinus disease NCV/EMG LE 06/13/16 NORMAL MOTOR AND SENSORY NERVE CONDUCTION VELOCITIES IN THE LOWER EXTREMITIES, EXCEPT FOR A BILATERAL ABSENT H-RELFEXES. Assessment & Plan Assessment & Plan (1) Fibromyalgia: Code(s): M79.7 - Fibromyalgia Category: Medical Plan: Continue gabapentin 400mg 1 capsule at bedtime. Continue amitriptyline 50mg 1 tablet at bedtime. (2) RLS (restless legs syndrome): Code(s): G25.81 - Restless legs syndrome Category: Medical (3) Insomnia: Code(s): G47.00 - Insomnia, unspecified Category: Medical Qualifiers: Insomnia type: unspecified Qualified Code(s): G47.00 - Insomnia, unspecified (4) Migraine: Code(s): G43.909 - Migraine, unspecified, not intractable, without status migrainosus Category: Medical Qualifiers: Migraine type: unspecified Status migrainosus presence: without status migrainosus Intractability: not intractable Qualified Code(s): G43.909 - Migraine, unspecified, not intractable, without status migrainosus (5) White matter disease: Code(s): R90.82 - White matter disease, unspecified Category: Medical Plan Lab results reviewed. Medications: New gabapentin 400 mg PO BEDTIME 90 caps 1RF 90 days amitriptyline 50 mg PO BEDTIME 90 tabs 1RF 90 days Coding Level of Care Code Est Pt Level 4 (15135) Diagnoses Fibromyalgia M79.7 RLS (restless legs syndrome) G25.81 Insomnia, unspecified type G47.00 Insomnia type: unspecified Migraine without status migrainosus, not intractable, unspecified migraine type G43.909 Migraine type: unspecified Status migrainosus presence: without status migrainosus Intractability: not intractable White matter disease R90.82
--- OUTSIDE RECORDS SUMMARY | 2025-02-08 11:35 | XMS_ITS | Patient Health Record ---
Author Organization [facility] Address [address] [place] [address] Care Team Providers Care Clothing Supervisor Name Role Phone LambertsarwatLorin Primary Care Provider UnavailConner Polk Unavailable [phone] Allergies Allergen (clinical drug ingredient) Drug/Non Drug Allergy documented on EMR Reaction Allergy Type Onset Date Status doxycycline Doxycycline Unknown Drug Allergy Act rebecca sulfacetamide Sulfacetamide Sodium Unknown Drug Allergy Active linezolid Linezolid Unknown Drug Allergy Active amoxicillin / clavulanate Augmentin Unknown Drug Allergy Active Reason For Referral No Information Medications Medication SIG (Take, Route, Frequency, Duration) Notes Start Date End Date Status Incruse Ellipta 62.5 MCG/INH INHALE 2 PU FF INTO THE LUNGS EVERY 24 HOURS Inhalation for 90 Active Symbicort 160-4.5 MCG/ACT INHALE 2 PUFFS TWICE A DAY Inhalation for 90 Active Senna Plus 8.6-50 MG TAKE 2 TABLETS BY M OUTH AT BEDTIME Oral for 30 Active Meclizine HCl 25 MG TAKE 1 TABLET BY TH THREE TIMES A DAY Oral for 30 Active DULoxetine HCl 60 MG TAKE 1 CAPSULE BY M OUTH TWICE A DAY Oral for 90 Active Albuterol Sulfate HFA 108 (90 Base) MCG/ACT INHALE 2 PUFFS EVERY 4 HOURS NEEDED FOR WHEEZING Inhalation for 30 Active Fluticasone Propionate 50 MCG/ACT USE 2 SPRAYS IN EACH NOSTRIL IN THE AM Nasal for 90 Active Albuterol Sulfate (2.5 MG/3ML) 0.083% INHALE 3 ML VIA NEBULZIER EVERY 6 HOURS Inhalation for 30 Active Gabapentin 300 MG TAKE 1 CAPSULE BY MO UTH AT BEDTIME Oral for 90 Active Amitriptyline HCl 50 MG TAKE 1 TABLET BY MOUTH EVERYDAY AT BEDTIME Oral for 90 Active LORazepam 1 MG (Schedule IV Drug) T MOE 1 TABLET BY MOUTH EVERYDAY AT BEDTIME Oral for 30 Active Pain Relief Extra Strength 500 MG TAKE 1 TABLET BY MOUTH EVERY 6 HOURS Oral for 30 Active Montelukast Sodium 10 MG TAKE 1 TABLET B Y MOUTH EVERY DAY Oral for 90 Active MiraLax (colon prep) 8.3 ounce ((238) grams mixed with Gatorade or Crystal Light orally begin at 5:00 p.m. the day before the procedure for 1 day 01/01/2020 Active Oseltamivir Phosphate 75 MG TAKE 1 CAPSU LE BY MOUTH TWICE A DAY Oral for 5 Active Dulcolax (colon prep) 5 MG take at 3:00 p.m and 7:00p.m. Orally two tablets twice a day for one day for 1 day 01/01/2020 Active Immunizations Vaccine Route Administration Date Status Comme nts Influenza Unknown 03/01/2019 Administered Social History Tobacco Use: Social History Observation Description Date Details (start date - stop date) Never Smoker NA - NA Tobacco Use/Smoking Question Answer Notes Patient is a nonsmoker Alcohol Screen Question Answer Notes Did you have a drink containing alcohol in the p ast year? No Points 0 Interpretation Negative Section Notes: Nonsmokers; no sig alcohol Problems Problem Type SNOMED Code ICD Code Onset Dates Problem Status W/U Status Risk Notes Problem [id number] Encounter for screening for malignant neoplasm of colon (Z12.11) Active confirmed Problem [id number] Preprocedural examination (Z01.818) Active confirmed Plan Of Treatment Pending Test Test Name Order Date GI BIOPSY 03/28/2020 Future Test Test Name Order Date COLONOSCOPY 12/31/2019 Insurance Providers Payer Name Payer Address Payer Phone Subscriber Number Group Number Insured Name Patient Relationship to Insured Coverage Start Date Coverage End Date [place] [address] [place] [address] [id number] GILBERTO MATTHEWS Self - patient is the insured MEDICAID OF [facility] [address] [place] [phone] [id number] GILBERTO MATTHEWS Self - patient is the insured Medical (General) History Medical History History ICD Code Denies [place],DM,CVA,renal disease Pulmonary fibrosis/COPD/Asthma Fibromyalgia Anxiety Surgical History Surgery Date(Month/Year) 3 hernia repair-inguinal x 3 Surgery for prolapse uterus Laparoscopy
--- OUTSIDE RECORDS SUMMARY | 2025-02-08 11:36 | XMS_ITS | Clinical Summary ---
Author Organization [facility] Address [address] [place] [address] Care Team Providers Care Rubber Goods Assembler Name Role Phone Unavailable Primary Care Provider [...] 2014 Imm-Zoster, Recombinant (1 of 2) 12/08/2019 [id number] ( season) 2024 021, 10/12/2020 Imm-Influenza (#1) 2024 05/20/2020, 07/22/2019 Alcohol and Drug Screen 07/01/2024 Depression Annual Screen 07/01/2024 Cervical Ablation/Cold-Knife Conization Discontinued Cervical Cryotherapy Discontinued Colposcopy Discontinued Endometrial Biopsy Discontinued Excision/Leep Discontinued HPV Genotyping Discontinued Vaginal Pap Discontinued Vulvoscopy Dis[place]
== END 2025-02-08 11:17 | disposition home or self-care (01) ==
LOC: HO.HSM 10:53
PROVIDERS: PCP Internal Medicine; Referring Provider Internal Medicine; Visit Provider Registered Nurse
DX: M79.7 Fibromyalgia (principal); G25.81 Restless legs syndrome; G47.00 Insomnia, unspecified; G43.909 Migraine, unspecified, not intractable, without status migrainosus; R90.82 White matter disease, unspecified
CPT/HCPCS: 99214

== ENCOUNTER → 2025-02-08 10:52 | Outpatient (BNVA) | payer MEDICARE, SELFPAY | PROVIDERS: PCP Internal Medicine; Referring Provider Internal Medicine; Visit Provider Registered Nurse | DX: M79.7 Fibromyalgia (principal); G25.81 Restless legs syndrome; G47.00 Insomnia, unspecified; G43.909 Migraine, unspecified, not intractable, without status migrainosus; R90.82 White matter disease, unspecified; Z79.899 Other long term (current) drug therapy | CPT/HCPCS: 99212 ==

== ENCOUNTER 2025-02-16 07:06 | Outpatient (REF) | payer MEDICARE, SELFPAY ==
--- OUTSIDE RECORDS SUMMARY | 2025-02-16 07:09 | XMS_ITS | Patient Health Record ---
Author Organization [facility] Address [address] [place] [address] Care Team Providers Care Assignment Agent Name Role Phone LambertsarwatLorin Primary Care Provider UnavailConner Polk Unavailable [phone] Allergies Allergen (clinical drug ingredient) Drug/Non Drug [...] Problem Status W/U Status Risk Notes Problem [id number] Encounter for screening for malignant neoplasm of colon (Z12.11) Active confirmed Problem [id number] Preprocedural examination (Z01.818) Active confirmed Plan Of Treatment Pending Test Test Name Order Date GI BIOPSY 03/28/2020 Future Test Test Name Order Date COLONOSCOPY 12/31/2019 Insurance Providers Payer Name Payer Address Payer Phone Subscriber Number Group Number Insured Name Patient Relationship to Insured Coverage Start Date Coverage End Date [place] [address] [place] [address] [phone] [id number] GILBERTO MATTHEWS Self - patient is the insured MEDICAID OF [facility] [address] [place] [phone] [id number] GILBERTO MATTHEWS Self - patient is the insured Medical (General) History Medical History History ICD Code Denies [place],DM,CVA,renal disease Pulmonary fibrosis/COPD/Asthma Fibromyalgia Anxiety Surgical History Surgery Date(Month/Year) 3 hernia repair-inguinal x 3 Surgery for prolapse uterus Laparoscopy
--- OUTSIDE RECORDS SUMMARY | 2025-02-16 07:09 | XMS_ITS | Clinical Summary ---
Author Organization [facility] Address [address] [place] [address] Care Team Providers Care Cadmium Liquor Maker Name Role Phone Unavailable Primary Care Provider [...] 2014 Fecal DNA 2014 Flexible Sigmoidoscopy 2014 Imm-Pneumococcal 50+ (1 of 1 - PCV) 12/08/2019 Imm-Zoster, Recombinant (1 of 2) 12/08/2019 [id number] ( season) 2024 021, 10/12/2020 Alcohol and Drug Screen 07/01/2024 Depression Annual Screen 07/01/2024 Imm-Influenza (#1) 2025 05/20/2020, 07/22/2019 Cervical Ablation/Cold-Knife Conization Discontinued Cervical Cryotherapy Discontinued Colposcopy Discontinued Endometrial Biopsy Discontinued Excision/Leep Discontinued HPV Genotyping Discontinued Vaginal Pap Discontinued Vulvoscopy Discontinued Insurance [place] [id number] [place] - [place]
[2025-02-16 07:20] LABS: MANUAL DIFF FLAG NO
[2025-02-16 08:12] LABS: Hematocrit 39.6 % (37.0-47.0); Hemoglobin 12.6 g/dl (12.0-16.0); Imm Gran Abs Auto 0.04 X10*3/uL (0.00-0.03); Imm Gran Pct Auto 0.5 % (0.0-0.4); Lymphocytes Absolute Auto 2.1 X10*3/uL (1.2-4.9); Mean Corpuscular HGB Conc 31.8 g/dl (31.0-35.0); Mean Corpuscular Hemoglobin 29.4 pg (27.0-33.0); Mean Corpuscular Volume 92.5 fL (80.0-98.0); NRBC Abs Auto 0.000 X10*3/uL (0.0-0.012); NRBC Pct Auto 0.0 /100WBC (0.0-0.2); Platelet Count 388 X10*3/uL (160-400); Red Blood Count 4.28 X10*6/uL (4.20-5.50); White Blood Count 8.0 X10*3/uL (4.8-10.8)
[2025-02-16 08:48] LABS: Alanine Aminotransferase 18 U/L (0-31); Albumin Level 4.1 g/dL (3.5-5.0); Alkaline Phosphatase 100 U/L (39-117); Anion Gap 12 (12-20); Aspartate Amino Transferase 21 U/L (5-31); Blood Urea Nitrogen 18 mg/dL (9-16); Calcium 9.3 mg/dL (8.4-10.2); Carbon Dioxide 25 mmol/L (22-29); Chloride 109 mmol/L (96-108); Cholesterol 199 mg/dL (<200); Estimated Glomerular Filt Rate > 60; HDL Cholesterol 56 mg/dL (>40); Potassium 3.9 mmol/L (3.3-5.1); Sodium 142 mmol/L (135-145); Total Protein 6.8 g/dL (6.5-8.0); Triglycerides 67 mg/dL (<150)
[2025-02-16 08:53] LABS: Thyroid Stimulating Hormone 1.82 uIU/mL (0.32-4.0)
== END 2025-02-16 07:07 | disposition home or self-care (01) ==
LOC: HO.LAB 07:06
PROVIDERS: Visit Provider Internal Medicine
DX: E04.2 Nontoxic multinodular goiter (principal); E78.00 Pure hypercholesterolemia, unspecified; J47.9 Bronchiectasis, uncomplicated; L40.50 Arthropathic psoriasis, unspecified; M19.041 Primary osteoarthritis, right hand; M79.7 Fibromyalgia
CPT/HCPCS: 36415; 80053; 80061; 84443; 85025

== ENCOUNTER 2025-04-05 13:25 | Outpatient (AMB) | payer MEDICARE, SELFPAY ==
[2025-04-05 13:30] VITALS: BP 102/60; PULSE 87; O2SAT 96; BMI 21.5
--- NOTE | 2025-04-05 13:30 | MHC.OFFVIS ---
Vital Signs 04/05/25 13:30 Height 5 ft 8 in Weight 141 lb 1.533 oz BMI 21.5 BP 102/60 Blood Pressure Location Lt brachial Position Sitting Pulse 87 Pulse Source Pulse Oximeter Pulse Oximetry (%) 96 Oxygen Delivery Method Room Air Intake Visit Reasons: pulmonary nodules Accompanied by: Self / Same As Patient Allergies clindamycin (CLINDAMYCIN) Allergy (Severe, Verified 04/05/25 13:34) RASH Sulfa (Sulfonamide Antibiotics) (SULFA (SULFONAMIDE ANTIBIOTICS)) Allergy (Mild, Verified 04/05/25 13:34) NAUSEA & VOMITING doxycycline (DOXYCYCLINE) Allergy (Unknown, Verified 04/05/25 13:34) UNK linezolid (LINEZOLID) Allergy (Unknown, Verified 04/05/25 13:34) UN rifampin (RIFAMPIN) Allergy (Unknown, Verified 04/05/25 13:34) UNK HPI Comments Details: The patient is a 54 year woman with a known history of bronchiectasis, COPD and underlying interstitial lung disease, along with inflammatory arthritis and psoriasis. The patient states that she was premature and did had on developed lungs at the time. She did have respiratory issues throughout her life. However, about 8 years ago she had worsening respiratory symptoms and was found to have some pulmonary nodules. She was followed closely at [facility] for most of her pulmonary care. Her last CT scan of the chest I personally reviewed with the patient. She did have some interstitial changes at the bases but more significantly evidence of bronchiectasis with significant tree-in-bud. Also to note, the patient did have a bronchoscopy back in 2014 at [facility] in biopsies demonstrated chronic inflammation which was nonspecific. Her cultures at that time were positive for Staph aureus. She has responded well to the Symbicort inhaler. Patient does have a nebulizer although she does not using regularly. On examination she does have significant wheezing and chest tightness. 07/18/2023 the patient is here for a pulmonary follow-up visit. The patient still complains of the productive cough chest congestion. She has been staying on top of her nebulized treatments and CPT with the Acapella valve. The patient did have a sputum sent and was positive for both Haemophilus and para Haemophilus influenzae. The patient was treated with antibiotics for that. In addition to that she did have a positive AFB culture for mycobacterium abscesses. The patient did also have a recent CT scan we did review together. She has significant bronchiectasis in addition to treating budding and pulmonary nodules all consistent with her smoldering mycobacterial infection. Therefore I did encourage her to start anti mycobacterial therapy. This is a tough regimen but the patient needs to be started on therapy at this time. She did have blood work done in the blood work at baseline is normal. It is very difficult to start her on a regimen as she does have allergies to antimicrobial therapies and the fact that she is traveling back and forth to [place] for a personal matter. Therefore, we will start her an oral regimen and to be referred to infectious disease. 09/20/2023 the patient is here for pulmonary follow-up visit. Overall she feels a little better. Her chest congestion is overall. The patient was treated initially with azithromycin rifabutin. There was a 3rd agent not get. However patient had an allergic reaction. Went ahead and stopped the full treatment because of potential resistance. She was evaluated by Infectious Disease. And other sputum culture was sent there will go ahead and send another 1 here. She continues have a productive cough. Moderate severity. She has been using her inhaler therapy with good response. Again, we did look at her CT scan of the chest demonstrating the bronchiectatic changes in the tree-in-bud. We did talk about undergoing a bronchoscopy. At this point she needs to go away in soft some issues in [place]. Therefore when she comes back if we still do not have clear microbiology specimen in regards the mycobacterial disease will go ahead perform a bronchoscopy. The patient is agreeable to this. If her symptoms worsen she will call the office also for an earlier assessment. 06/04/2024 the patient is here for a pulmonary follow-up visit. The patient overall feels okay. She was actually responding very well to the inhaled tobramycin. Then she developed a rash. She has started putting cortical steroid cream on it. Then antifungal cream. She did have a picture that did look at it. Appears to be more consistent with tinea infection. Therefore explained to her that the use of the cortical steroid cream was probably making it worse. Therefore based on the fact that she felt very good on the inhaled tobramycin I do believe that we she restarted. I will send another script to the pharmacy. Also send of the antifungal cream that she can apply if the areas of getting irritated. If however the rash gets worse even with the antifungal cream then she is to call the office in hold the medicine. In addition to that the patient needs to be performing the chest PT therapy. We did look at her CT scan of the chest that she had recently appears to be at least stable with the bronchiectatic changes the tree-in-bud in the pulmonary nodules. Does not appear to be getting any worse which is reassuring. 04/05/2025 the patient is here for pulmonary follow-up visit. The patient has been complaining of worsening cough chest congestion. Moderate severity. She has not been able to take care of herself because she is attending to her father's needs. He has been sick and currently having surgery. She had been doing the inhaled tobramycin which is very affecting beneficial but then she started developing a rash and she stopped it. Unfortunately she is allergic to a lot of other antibiotics and specially a lot of anti mycobacterial antibiotics to treat her underlying mycobacterial abscesses. She has significant bronchiectasis. The last CT scan of the chest was done back in March 2024 which I personally reviewed with multiple pulmonary nodules bronchiectatic changes tree-in-bud. Will go ahead and repeat a CAT scan at this time. Will go ahead and treat her as she is having significant exacerbation of her bronchiectasis. She does tolerate Levaquin and I will send her some prednisone. Once she is better she can try again the inhaled tobramycin she can do it daily to see if she tolerates it without developing a rash. Unfortunately, if she develops a rash or any other adverse symptoms she will have to stop it. Will follow-up in 3 months and she should have a CAT scan before I see her. [facility] Medical History (Updated 02/08/25 @ 11:14 by Kathe Lynn CNP) Gout White matter disease Psoriasis Migraine Insomnia RLS (restless legs syndrome) Depression Fibromyalgia Pseudomonal pneumonia Mycobacterium abscessus infection Pulmonary nodules ILD (interstitial lung disease) Asthma-COPD overlap syndrome Bronchiectasis Chest pain Renal calculi Vitamin D deficiency Multinodular thyroid Shade's disease Surgical History Hx of hernia repair History of laparoscopy Family History Father Diabetes Hypertension Mother Heart disease Hypertension Social History Alcohol intake: never Patient Tobacco Use Status: Never used Tobacco Review of Systems Const Denies fever(s) ENT Reports nasal congestion and Reports nasal discharge Card Denies chest pain and Reports dyspnea on exertion Resp Reports chest congestion, Reports cough, Reports dyspnea on exertion and Reports wheezing GI Reports no additional complaints Musc Reports as per HPI, Reports arthralgias and Reports joint swelling Skin/Breast Reports rash Neuro Reports no additional complaints Konrad/Lymph Denies easy bleeding, Denies easy bruising and Denies lymphadenopathy Aller/Immun Reports wheezing Physical Exam Vital Signs: Last Vital Signs Pulse 87 04/05/25 13:30 BP 102/60 04/05/25 13:30 Pulse Ox 96 04/05/25 13:30 Oxygen Delivery Method Room Air 04/05/25 13:30 BMI result Body Mass Index 21.5 Const General: comfortable HEENT Head: Yes normocephalic Neck Neck: Yes supple Chest Chest palpation & inspection: normal inspection of the chest Resp Effort & Inspection: normal respiratory effort and prolonged expiratory phase Auscultation: rhonchi, wheezes and diminished lung sounds Cardio Rate: regular rate Rhythm: regular rhythm Heart sounds: S1 normal heart sound present and S2 normal heart sound present GI Palpation (GI): Soft to palpation Skin General skin exam: no rashes or lesions noted Extrem General: Yes no clubbing, cyanosis or edema Assessment & Plan Assessment & Plan (1) Mycobacterium abscessus infection: Code(s): A31.8 - Other mycobacterial infections Category: Medical (2) Bronchiectasis: Code(s): J47.9 - Bronchiectasis, uncomplicated Category: Medical Qualifiers: Bronchiectasis type: with acute exacerbation Qualified Code(s): J47.1 - Bronchiectasis with (acute) exacerbation (3) SOB (shortness of breath): Code(s): R06.02 - Shortness of breath Category: Medical (4) Asthma-COPD overlap syndrome: Code(s): J44.89 - Other specified chronic obstructive pulmonary disease Category: Medical (5) ILD (interstitial lung disease): Code(s): J84.9 - Interstitial pulmonary disease, unspecified Category: Medical (6) Pulmonary nodules: Code(s): R91.8 - Other nonspecific abnormal finding of lung field Category: Medical (7) Pseudomonal pneumonia: Code(s): J15.1 - Pneumonia due to Pseudomonas Category: Medical Qualifiers: Laterality: unspecified laterality Lung location: unspecified part of lung Qualified Code(s): J15.1 - Pneumonia due to Pseudomonas Plan continue Breztri EVITA as needed start Prednisone taper start Levofloxacin CT chest inhaled Toro BID x 28 days on, 28 days off, monitor for rash continue nebulizer therapy with albuterol followed by hypertonic saline continue CPT with acapella valve. Would benefit from a percussion vest in the near future stopped Azithromycin/Rifabutin due to allergic reaction continue singulair F/U 3-4 months Orders: Orders CT chest wo IV con 4 Weeks J47.1 - Bronchiectasis with (acute) exacerbation, J84.9 - Interstitial pulmonary disease, unspecified, R91.8 - Other nonspecific abnormal finding of lung field Medications: New levofloxacin 500 mg PO DAILY 10 tabs 0RF 10 days prednisone PO daily; Take 4 tabs daily x 3 days then 3 tabs x 3 days, then 2 tabs daily x 3 days, then 1 tab x 3 days to complete. 30 tabs 0RF 12 days Coding Level of Care Code Est Pt Level 4 (32451) Complex EM visit Add On G2211 Diagnoses Mycobacterium abscessus infection A31.8 Bronchiectasis with acute exacerbation J47.1 Bronchiectasis type: with acute exacerbation SOB (shortness of breath) R06.02 Asthma-COPD overlap syndrome J44.89 ILD (interstitial lung disease) J84.9 Pulmonary nodules R91.8 Pneumonia due to Pseudomonas species, unspecified laterality, unspecified part of lung J15.1 Laterality: unspecified laterality Lung location: unspecified part of lung Time Spent (min) 17
--- OUTSIDE RECORDS SUMMARY | 2025-04-05 15:48 | XMS_ITS | Clinical Summary ---
Author Organization [facility] Address [address] [place] [address] Care Team Providers Care Dollyman Name Role Phone Unavailable Primary Care Provider [...] 12/08/2019 Imm-Zoster, Recombinant (1 of 2) 12/08/2019 Alcohol and Drug Screen 07/01/2024 Depression Annual Screen 07/01/2024 [id number] (3 - 2024- season) 2025 021, 10/12/2020 Imm-Influenza (#1) 2025 05/20/2020, 07/22/2019 Cervical Ablation/Cold-Knife Conization Discontinued Cervical Cryotherapy Discontinued Colposcopy Discontinued Endometrial Biopsy Discontinued Excision/Leep Discontinued HPV Genotyping Discontinued Vaginal Pap Discontinued Vulvoscopy Discontinued Insurance [place] [id number] [place] - [place]
--- OUTSIDE RECORDS SUMMARY | 2025-04-05 15:48 | XMS_ITS | Patient Health Record ---
Author Organization [facility] Address [address] [place] [id number] Care Team Providers Care Top Executive Name Role Phone Lorin Ramey Primary Care Provider UnavailConner Polk Unavailable [phone] Allergies Allergen (clinical drug ingredient) Drug/Non Drug [...] HCl 25 MG TAKE 1 TABLET BY FAHAD TH THREE TIMES A DAY Oral for [...] 300 MG TAKE 1 CAPSULE BY [facility] AT BEDTIME Oral for 90 Active Amitriptyline [...] Problem Status W/U Status Risk Notes Problem [id number] Encounter for screening for malignant neoplasm of colon (Z12.11) Active confirmed Problem [id number] Preprocedural examination (Z01.818) Active confirmed Plan Of Treatment Pending Test Test Name Order Date GI BIOPSY 03/28/2020 Future Test Test Name Order Date COLONOSCOPY 12/31/2019 Next Appt Details Provider Name:Conner Abarca , 07/20/2025 02:00:00 PM, [address] [facility], [address], [place], [address], Insurance Providers Payer Name Payer Address Payer Phone Subscriber Number Group Number Insured Name Patient Relationship to Insured Coverage Start Date Coverage End Date [facility] [address] [address] [place] [address] [id number] GILBERTO MATTHEWS Self - patient is the insured MEDICAID OF [facility] [address] [place] [address] [phone] [id number] GILBERTO MATTHEWS Self - patient is the insured Medical (General) History Medical History History ICD Code Denies NV,DM,CVA,renal disease Pulmonary fibrosis/COPD/Asthma Fibromyalgia Anxiety Surgical History Surgery Date(Month/Year) 3 hernia repair-inguinal x 3 Surgery for prolapse uterus Laparoscopy
--- OUTSIDE RECORDS SUMMARY | 2025-04-05 15:48 | XMS_ITS | Clinical Summary ---
Author Organization [facility] Address [address] [address] Phone Care Team Providers Care Coding Quality Coordinator Name Role Phone Lorin Ramey MD Primary Care Provider Allergies Active Allergy Reactions Criticality Noted Date Comments Amoxicillin-Pot Clavulanate Rash Low 02/24/20 Doxycycline Rash Low 02/24/2024 Linezolid Rash Low 02/24/2024 Rosuvastatin Angioedema 02/24/2024 Sulfa (Sulfonamide Antibiotics) 01/30 numbness Family History Medical History Relation Comments Diabetes Father Hyperlipidemia Father Hyperlipidemia Mother Hypertension Mother Heart failure Paternal Grandfather Diabetes Paternal Grandmother Heart failure Paternal Grandmother Hypertension Paternal Grandmother Relation Status Comments Father Mother Paternal Grandfather Paternal Grandmother Social History Tobacco Use Types Packs/Day Years Used Date Smoking Tobacco: Never Assessed Education Answer Date Recorded Are you interested in more education? Not on collin e 04/04/2023 Are you concerned about learning? Not on file 04/04/2023 No 04/04/2023 No 04/04/2023 Digital Access Answer Date Recorded No 04/04/2023 No 04/04/2023 Reliable internet access at home? Not on file 04/04/2023 Device with a working camera? Not on file Comments Unknown Sex and Gender Information Value Date Recorded Sex Assigned at Not on file Legal Sex Female 1:50 PM EDT Gender Identity Not on file Sexual Orientation Not on file Plan of Treatment Health Maintenance Due Date Last Done Comments Adult Td,Tdap Booster 1969 LIPID PANEL 1969 DEPRESSION SCREENING 1981 SMOKING Hx and SMOKELESS TOB ACCO SCREENING 1982 HEPATITIS C SCREENING 12/08/1987 HIV ONE-TIME SCREENING (18-6 5 YEARS) 12/08/1987 PAP SMEAR 1990 MAMMOGRAM 2009 COLOGUARD 2014 COLONOSCOPY 2014 COLORECTAL CANCER SCREENING 2014 FIT TEST 2014 FOBT 2014 SIGMOIDOSCOPY 2014 VIRTUAL COLONOSCOPY 2014 PNEUMOCOCCAL VACCINES (50+ y ears) (1 of 1 - PCV) 12/08/2019 ZOSTER VACCINES (1 of 2) 12/08/2019 INFLUENZA VACCINE (#1) 2025 COVID-19 VACCINE (1 - 2024-2 6 season) 2025 RSV VACCINE (1 - 1-dose 75+ series) 2044 HEPATITIS A VACCINES Aged Out No long er eligible based on patient's age to complete this topic HIB VACCINES Aged Out No longer eligi ble based on patient's age to complete this topic MENINGOCOCCAL VACCINES (ACWY) Aged Out No longer eligible based on patient's age to complete this topic MENINGOCOCCAL VACCINES (B) Aged Out N o longer eligible based on patient's age to complete this topic Medical Devices Not on file [place] [address] [place] [address] [employer] MEDICARE REPLACEMENT MEDICARE PART A & [place] [address] MEDICARE REPLACEMENT MEDICARE PART A & B [facility] MEDICARE REPLACEMENT MEDICARE PART A & [place] [address] MEDICARE REPLACEMENT MEDICARE PART A & B [facility] CARE MEDICARE REPLACEMENT MEDICARE PART A & B [facility] MEDICARE REPLACEMENT MEDICARE PART A & B Member Subscriber Plan / Payer (Ef fective 2017-Present) Name:Alley Palma Member ID:[id number] Relation to Subscriber:Self Name:Alley Palma Subscriber ID:[id number] Payer ID:[id number] Group ID:Not on file Type:Medicare Address: [facility] [employer] [facility] [address] [facility] [place] [address] Care Teams Coding Quality Coordinator Relationship Specialty Start Date End Date Lorin Ramey MD [address] [place] [address] [place] [address] PCP - General Internal Medicine 04/03/23 Additional Source Comments The information contained in this document represents components of the legal health record. It is not the complete legal health record.[facility]
== END 2025-04-05 13:53 | disposition home or self-care (01) ==
LOC: HO.HPS 13:25
PROVIDERS: PCP Internal Medicine; Visit Provider Hospitalist
DX: A31.8 Other mycobacterial infections (principal); J47.1 Bronchiectasis with (acute) exacerbation; R06.02 Shortness of breath; J44.89 Other specified chronic obstructive pulmonary disease; J84.9 Interstitial pulmonary disease, unspecified; R91.8 Other nonspecific abnormal finding of lung field; J15.1 Pneumonia due to Pseudomonas
CPT/HCPCS: 99214; G2211

== ENCOUNTER → 2025-04-05 13:25 | Outpatient (BNVA) | payer MEDICARE, SELFPAY | PROVIDERS: PCP Internal Medicine; Visit Provider Hospitalist | DX: J47.1 Bronchiectasis with (acute) exacerbation (principal); R91.8 Other nonspecific abnormal finding of lung field; J44.89 Other specified chronic obstructive pulmonary disease; J84.9 Interstitial pulmonary disease, unspecified; J15.1 Pneumonia due to Pseudomonas; R06.02 Shortness of breath; A31.8 Other mycobacterial infections | CPT/HCPCS: 99212 ==